=== PATIENT | male | born 1945 | race Caucasian/White ===

== ENCOUNTER 2021-03-31 22:21 | Inpatient (IN) ==
--- NOTE | 2021-03-31 23:13 | XRay Report ---
XR chest 1V portable HISTORY: 75 years-old Male weakness acute weakness COMPARISON: None TECHNIQUE: Portable AP view of the chest FINDINGS: Cardiac silhouette is mildly enlarged. No overt pulmonary edema. Mild subsegmental medial right lung base opacities. No pneumothorax or large pleural effusion. No overt pulmonary edema. Degenerative lalit nges of the shoulders and spine. IMPRESSION: 1. Cardiomegaly without pulmonary edema. 2. Mild medial right lung base opacities suggestive of atelectasis versus pneumonia. ACT 112: Negative or not required by law. The above report was generated using voice recognition software. It may contain grammatical, syntax o r spelling errors. Electronically signed by: Benjy Jensen M.D. 03/31/2021 11:12 PM
[2021-03-31 23:16] LABS: Basophils # (auto) 0.06 K/uL (0-0.2); Basophils % (auto) 0.7 %; Eosinophils # (auto) 0.09 K/uL (0-0.5); Hematocrit (blood only) 50.7 % (42-52); Hemoglobin 17.4 g/dL (14.0-18.0); Immature Granulocytes # (auto) 0.02 K/uL (0.00-0.02); Immature Granulocytes % (auto) 0.2 %; Lymphocytes # (auto) 1.65 K/uL (1.2-3.4); Lymphocytes % (auto) 19.1 %; Mean Corpuscular Hemoglobin 33.3 pg (25-34); Mean Corpuscular Hgb Conc 34.3 g/dL (32-36); Mean Corpuscular Volume 97.1 fL (80-100); Mean Platelet Volume 9.6 fL (7.4-10.4); Monocytes # (auto) 0.91 K/uL (0.11-0.59); Monocytes % (auto) 10.6 %; Neutrophils # (auto) 5.89 K/uL (1.4-6.5); Neutrophils % (auto) 68.4 %; Platelet Count 217 K/uL (130-400); RDW Standard Deviation 45.8 fL (36.4-46.3); Red Blood Count 5.22 M/uL (4.7-6.1); White Blood Count 8.62 K/uL (4.8-10.8)
[2021-03-31 23:24] LABS: Appearance Urine Clear (Clear); Bacteria Urine Automated Negative (Negative); Bilirubin Urine Negative (Negative); Blood Urine 2+ (Negative); Color Urine Dark Yellow; Epithelial Cell Urine Auto >30 /lpf (0-5); Glucose Urine UA Negative (Negative); Ketones Urine Trace (Negative); Leukocyte Esterase Urine Negative (Negative); Nitrite Urine Negative (Negative); Protein Urine Negative (Negative); RBC Urine Automated >30 /hpf (0-4); Specific Gravity Urine 1.024 (1.000-1.030); Urobilinogen Urine Negative (Negative); pH Urine 5.5 (4.5-7.5)
[2021-03-31 23:24] LABS: Albumin Level 4.2 gm/dl (3.4-5.0); BUN Creatinine Ratio 12.6 (10-20); Calcium 9.1 mg/dl (8.5-10.1); Creatinine Clr Calc Pharmacy 43.5 ml/min; Est GFR (African American) 52.6 ml/min; Est GFR (Non-African American) 45.4 ml/min; Potassium 4.2 mmol/L (3.5-5.1)
[2021-03-31 23:35] LABS: Albumin Globulin Ratio 1.3 (0.9-2); Globulin 3.3 gm/dl (2.5-4.0); Thyroid Stimulating Hormone 2.47 uIu/ml (0.300-4.500); Total Protein 7.5 gm/dl (6.4-8.2)
[2021-03-31] MEDS ORDERED: SODIUM CHLORIDE 0.9% 1000ML 1,000 ML IV SCH (23:45)
[2021-03-31 23:57] LABS: Mucus Urine Present (None Prsent)
--- NOTE | 2021-04-01 01:29 | Emergency Department Note ---
History of Present Illness General Chief complaint: Confusion Stated complaint: CONFUSION, HALLUCINATION, CAN'T MOVE Time Seen by Provider: 03/31/21 23:20 Source: patient and family Mode of arrival: ambulatory Limitations: altered mental status History of Present Illness Provider complaint: confusion, hallucinations Onset (ago): day(s) 10 Associated symptoms: + denies other symptoms Treatments prior to arrival: none This is a 75-year-old male who presents from home with at bedside due to concern for confusion and hallucinations. states about a week and a half ago she began noting that he was confused to person and location and began seeing things that were not really there. He didn't recognize her at times also. She states he has never had a reaction like this previously. She denies that he has recently been ill. She states they contacted his doctor as he does have a history of Parkinson's and they thought perhaps it was related to one of his medications so this was discontinued. The medication had been originally prescribed back in October and he had been taking without any difficulty or adverse reactions up until this time. He stopped the medication on Saturday, however symptoms did not improve. They recontacted the doctor who added additional medication for depression. They discussed the ongoing symptoms with the doctor and were told this evening the due to the persistent symptoms that she come to the emergency room for additional evaluation. denies that the patient had otherwise recently had any changes including fevers, decreased appetite, change in weight, change in bathroom habits, or obvious URI symptoms. Patient denies any recent pain. No recent injury. No prior history of dementia or prior CVA. Pt seen during a time of high acuity and national emergency pandemic while wearing PPE. Home Medications Medication Instructions Recorded Confirmed Type aspirin 81 mg tablet,delayed 81 mg PO DAILY 04/01/21 04/01/21 History release carbidopa 25 mg-levodopa 100 mg 1 tab PO TID 04/01/21 04/01/21 History tablet carbidopa ER 50 mg-levodopa 200 mg 1 tab PO HS 04/01/21 04/01/21 History tablet,extended release diphenhydramine 25 1 tab PO HS PRN 04/01/21 04/01/21 History mg-acetaminophen 500 mg tablet (Tylenol PM Extra Strength) garlic 400 mg tablet,delayed 0 mg PO DAILY 04/01/21 04/01/21 History release losartan 50 mg tablet 50 mg PO DAILY 04/01/21 04/01/21 History multivitamin 1 tab PO DAILY 04/01/21 04/01/21 History omega-3 fatty acids 1,000 mg PO TID 04/01/21 04/01/21 History polyethylene glycol 3350 17 17 g PO MOWEFR 04/01/21 04/01/21 History gram/dose oral powder (Miralax) vit A 1,000 unit-C 200 mg-E 60 1 tab PO DAILY 04/01/21 04/01/21 History unit-lutein 2 mg and minerals tablet (Vision Formula (with lutein)) Allergies Allergy/AdvReac Type Severity Reaction Status Date / Time bee venom protein (honey bee) Allergy Unknown Verified 04/01/21 01:00 lisinopril AdvReac Cough Verified 04/01/21 01:00 Past Med/Surg History Medical History (Updated 04/02/21 @ 07:37 by Jaqueline Montes DO) Hypertension Parkinsons disease Social History Smoking Status: Never smoker Hx Alcohol Use: Yes Alcohol type: beer Hx Substance Use: No Preferred Language: Albanian Communication Ability: Effective Math Instructor Required: No Beliefs That Will Affect Care: None Current Living Situation: Spouse Other Information That Helps Us Care for You: No Feels Safe at Home: Yes Safety Concerns: Feels Safe At This Time Assistive Devices: Cane and Glasses Review of Systems A total of 10 systems reviewed and were otherwise negative All systems reviewed & are unremarkable except as noted in HPI & below Physical Exam Vital Signs Vital Signs - 24 hr 04/01/21 01:00 04/01/21 01:30 04/01/21 02:00 Pulse Rate 88 91 H 87 Pulse Rate from SpO2 Sensor Respiratory Rate 16 17 15 Blood Pressure 124/82 136/59 L 120/78 Blood Pressure Mean 96 84 92 Pulse Oximetry 96 96 96 04/01/21 02:30 04/01/21 03:00 04/01/21 03:30 Pulse Rate 89 87 86 Pulse Rate from SpO2 Sensor 91 H Respiratory Rate 16 13 15 Blood Pressure 129/83 128/85 131/86 Blood Pressure Mean 98 99 101 Pulse Oximetry 96 96 98 04/01/21 04:01 04/01/21 04:30 Pulse Rate 92 H 92 H Pulse Rate from SpO2 Sensor 91 H Respiratory Rate 16 21 Blood Pressure 158/99 H 148/89 H Blood Pressure Mean 118 108 Pulse Oximetry 99 96 GENERAL: alert, well appearing, well nourished, no distress, non-toxic EYE EXAM: normal conjunctiva, PERRL and EOM's grossly intact OROPHARYNX: no exudate, no erythema, lips, buccal mucosa, and tongue normal and mucous membranes are moist NECK: supple, no nuchal rigidity, no adenopathy, non-tender LUNGS: Clear to auscultation. Normal chest wall mechanics, no w/r/r HEART: no murmurs, S1 normal and S2 normal ABDOMEN: abdomen soft, non-tender, normo-active bowel sounds, no masses, no rebound or guarding. : Patient with mild redness noted along bilateral inguinal creases and extending into the lateral aspect of the scrotal skin. states he has had this previously and it seemed to get worse again. They are applying a antifungal cream. Patient denies pain, scrotal swelling, or testicular tenderness. Patient denies any difficulty urinating. Patient is circumcised. No crepitus. No evidence of Parker's. No inguinal lymphadenopathy. BACK: Back is symmetrical on inspection and there is no deformity, no midline tenderness, no CVA tenderness. SKIN: no rashes and no bruising UPPER EXTREMITIES: upper extremities are grossly normal. FROM, nml pulses b/l. LOWER EXTREMITIES: No pitting edema. FROM, nml pulses b/l. NEURO EXAM: Normal sensorium, cranial nerves II-XII grossly intact, normal speech, no gross weakness of arms, no gross weakness of legs. Mild resting tremor noted. Gross sensation intact. Course Course 0116: Updated patient and at bedside. Patient refused to stay. would like him to but is not willing to force him to stay despite her concern for his confusion and hallucinations. We did discuss hematuria. No prior history of same. No history of kidney stones or TEJINDER. 0411: Patient does not change his mind and is in agreement with plan for inpatient evaluation. Administered Medications Aspirin (Aspirin 81 Mg Ectab) 81 mg PO DAILY [facility] Stop: 05/01/21 08:59 Last Admin: 04/01/21 08:52 Dose: 81 mg Documented by: [id number] Carbidopa/Levodopa (Carbidopa/Levodopa 50/200mg Ext Rel Tab) 1 tab PO HS [facility] Stop: 05/01/21 20:59 Last Admin: 04/01/21 21:42 Dose: Not Given Documented by: [id number] Carbidopa/Levodopa (Carbidopa/Levodopa 25/100mg Tab) 1 tab PO TID JM Stop: 05/01/21 08:59 Last Admin: 04/01/21 21:42 Dose: Not Given Documented by: [id number] Admin: 04/01/21 16:09 Dose: Not Given Documented by: [id number] Admin: 04/01/21 08:52 Dose: 1 tab Documented by: [id number] Heparin Sodium (Porcine) (Heparin Sod 5,000 Unit/0.5 Ml Vial) 5,000 units SQ Q8 JM Stop: 05/01/21 06:42 Last Admin: 04/02/21 06:08 Dose: 5,000 units Documented by: [id number] Admin: 04/01/21 21:13 Dose: 5,000 units Documented by: [id number] Admin: 04/01/21 16:09 Dose: 5,000 units Documented by: [id number] Admin: 04/01/21 08:52 Dose: 5,000 units Documented by: [id number] Sodium Chloride (1/2 Nss) 1,000 mls @ 100 mls/hr IV .Q10H JM Stop: 05/01/21 07:59 Last Admin: 04/02/21 06:13 Dose: 100 mls/hr Documented by: [id number] Infusion: 04/02/21 06:13 Dose: 100 mls/hr Documented by: [id number] Admin: 04/01/21 21:10 Dose: 100 mls/hr Documented by: [id number] Infusion: 04/01/21 20:19 Dose: 100 mls/hr Documented by: [id number] Infusion: 04/01/21 12:30 Dose: 100 mls/hr Documented by: [id number] Admin: 04/01/21 08:51 Dose: 60 mls/hr Documented by: [id number] Valproic Acid 250 mg/ Dextrose 52.5 mls @ 55 mls/hr IV Q6H PRN PRN Reason: Agitation Stop: 05/01/21 16:59 Last Infusion: 04/01/21 18:27 Dose: 0 mls/hr Documented by: [id number] Admin: 04/01/21 17:18 Dose: 55 mls/hr Documented by: [id number] Multivitamins (Multivitamin Tab) 1 tab PO DAILY JM Stop: 05/01/21 08:59 Last Admin: 04/01/21 08:52 Dose: 1 tab Documented by: [id number] Quetiapine Fumarate (Quetiapine Fumarate 25 Mg Tablet) 12.5 mg PO Q12H JM Stop: 05/01/21 16:59 Last Admin: 04/02/21 07:29 Dose: Not Given Documented by: [id number] Discontinued Medications Sodium Chloride (Nss 1000ml) 1,000 mls @ 125 mls/hr IV .Q8H JM Stop: 04/30/21 23:44 Last Infusion: 04/01/21 06:46 Dose: 0 mls/hr Documented by: [id number] Admin: 04/01/21 00:03 Dose: 125 mls/hr Documented by: [id number] Lactated Ringer's (Lr) 1,000 mls @ 60 mls/hr IV .[id number] ONE Stop: 04/01/21 23:22 Last Admin: 04/01/21 08:45 Dose: Not Given Documented by: [id number] Lorazepam (Ativan) 1 mg in 2 mls @ 2 mls/min IV NOW STA Stop: 04/01/21 12:14 Last Admin: 04/01/21 12:25 Dose: 2 mls/min Documented by: [id number] Olanzapine (Olanzapine 10 Mg/2.1 Ml Sdv) 2.5 mg IM NOW STA Stop: 04/01/21 17:54 Last Admin: 04/01/21 18:26 Dose: 2.5 mg Documented by: [id number] Medical Decision Making Differential Diagnosis Differential diagnoses includes but is not limited to toxic, metabolic, infectious, traumatic, cardiac, neurologic, hematologic, psychiatric and inflammatory etiologies. Medical Records Attestation: I reviewed the patient's medical records. Home Medications Current Medication List: was personally reviewed by me Laboratory Data Attestation: I reviewed the patient's lab results. Result diagrams: 04/01/21 06:55 04/01/21 06:55 Lab Results 03/31/21 03/31/21 03/31/21 Range/Units 22:50 22:50 23:00 WBC 8.62 (4.8-10.8) K/uL RBC 5.22 (4.7-6.1) M/uL Hgb 17.4 (14.0-18.0) g/dL Hct 50.7 (42-52) % MCV 97.1 (80-100) fL MCH 33.3 (25-34) pg MCHC 34.3 (32-36) g/dL RDW Std Deviation 45.8 (36.4-46.3) fL RDW Coeff of Celena 13.0 (11.5-14.5) % Plt Count 217 (130-400) K/uL MPV 9.6 (7.4-10.4) fL Immature Gran % (Auto) 0.2 % Neut % (Auto) 68.4 % Lymph % (Auto) 19.1 % [place] % (Auto) 10.6 % Eos % (Auto) 1.0 % Baso % (Auto) 0.7 % Neut # (Auto) 5.89 (1.4-6.5) K/uL Lymph # (Auto) 1.65 (1.2-3.4) K/uL [place] # (Auto) 0.91 H (0.11-0.59) K/uL Eos # (Auto) 0.09 (0-0.5) K/uL Baso # (Auto) 0.06 (0-0.2) K/uL Immature Gran # (Auto) 0.02 (0.00-0.02) K/uL Sodium 140 (136-145) mmol/L Potassium 4.2 (3.5-5.1) mmol/L Chloride 107 (98-107) mmol/L Carbon Dioxide 30 (21-32) mmol/L Anion Gap 4.0 (3-11) BUN 19 H (7-18) mg/dl Creatinine 1.47 H (0.6-1.4) mg/dl Est Cr Clr Drug Dosing 43.5 ml/min Est GFR ( Amer) 52.6 ml/min Est GFR (Non-Af Amer) 45.4 ml/min BUN/Creatinine Ratio 12.6 (10-20) Glucose 105 H (70-99) mg/dl Calcium 9.1 (8.5-10.1) mg/dl Magnesium 2.3 (1.8-2.4) mg/dl Total Bilirubin 1.0 (0.2-1) mg/dl AST 18 (15-37) U/L ALT 15 (12-78) U/L Alkaline Phosphatase 70 (45-117) U/L Total Protein 7.5 (6.4-8.2) gm/dl Albumin 4.2 (3.4-5.0) gm/dl Globulin 3.3 (2.5-4.0) gm/dl Albumin/Globulin Ratio 1.3 (0.9-2) TSH 2.470 (0.300-4.500) uIu/ml Urine Color Dark Yellow Urine Appearance Clear (Clear) Urine pH 5.5 (4.5-7.5) Ur Specific [place] 1.024 (1.000-1.030) Urine Protein Negative (Negative) Urine Glucose (UA) Negative (Negative) Urine Ketones Trace H (Negative) Urine Blood 2+ H (Negative) Urine Nitrite Negative (Negative) Urine Bilirubin Negative (Negative) Urine Urobilinogen Negative (Negative) Ur Leukocyte Esterase Negative (Negative) Urine WBC (Auto) 1-5 (0-5) /hpf Urine RBC (Auto) >30 H (0-4) /hpf U Hyaline Cast (Auto) 5-10 H (0-5) /lpf U Epithel Cells (Auto) >30 H (0-5) /lpf Urine Bacteria (Auto) Negative (Negative) Ur Renal Epithelial Cell Not Reportable Urine Mucus Present A (None Prsent) COVID-19 Eval Order SARS-CoV-2 (PCR) (Negative) 04/01/21 04/01/21 Range/Units 03:15 03:15 WBC (4.8-10.8) K/uL RBC (4.7-6.1) M/uL Hgb (14.0-18.0) g/dL Hct (42-52) % MCV (80-100) fL MCH (25-34) pg MCHC (32-36) g/dL RDW Std Deviation (36.4-46.3) fL RDW Coeff of [place] (11.5-14.5) % Plt Count (130-400) K/uL MPV (7.4-10.4) fL Immature Gran % (Auto) % Neut % (Auto) % Lymph % (Auto) % [place] % (Auto) % Eos % (Auto) % Baso % (Auto) % Neut # (Auto) (1.4-6.5) K/uL Lymph # (Auto) (1.2-3.4) K/uL [place] # (Auto) (0.11-0.59) K/uL Eos # (Auto) (0-0.5) K/uL Baso # (Auto) (0-0.2) K/uL Immature Gran # (Auto) (0.00-0.02) K/uL Sodium (136-145) mmol/L Potassium (3.5-5.1) mmol/L Chloride (98-107) mmol/L Carbon Dioxide (21-32) mmol/L Anion Gap (3-11) BUN (7-18) mg/dl Creatinine (0.6-1.4) mg/dl Est Cr Clr Drug Dosing ml/min Est GFR ( Amer) ml/min Est GFR (Non-Af Amer) ml/min BUN/Creatinine Ratio (10-20) Glucose (70-99) mg/dl Calcium (8.5-10.1) mg/dl Magnesium (1.8-2.4) mg/dl Total Bilirubin (0.2-1) mg/dl AST (15-37) U/L ALT (12-78) U/L Alkaline Phosphatase (45-117) U/L Total Protein (6.4-8.2) gm/dl Albumin (3.4-5.0) gm/dl Globulin (2.5-4.0) gm/dl Albumin/Globulin Ratio (0.9-2) TSH (0.300-4.500) uIu/ml Urine Color Urine Appearance (Clear) Urine pH (4.5-7.5) Ur Specific [place] (1.000-1.030) Urine Protein (Negative) Urine Glucose (UA) (Negative) Urine Ketones (Negative) Urine Blood (Negative) Urine Nitrite (Negative) Urine Bilirubin (Negative) Urine Urobilinogen (Negative) Ur Leukocyte Esterase (Negative) Urine WBC (Auto) (0-5) /hpf Urine RBC (Auto) (0-4) /hpf U Hyaline Cast (Auto) (0-5) /lpf U Epithel Cells (Auto) (0-5) /lpf Urine Bacteria (Auto) (Negative) Ur Renal Epithelial Cell Urine Mucus (None Prsent) COVID-19 Eval Order Covid19 at [facility] SARS-CoV-2 (PCR) NEGATIVE (Negative) Imaging Data Radiologist's Impression: Chest X-Ray 03/31/21 23:01 XR chest 1V portable HISTORY: 75 years-old Male weakness acute weakness COMPARISON: None TECHNIQUE: Portable AP view of the chest FINDINGS: Cardiac silhouette is mildly enlarged. No overt pulmonary edema. Mild subsegmental medial right lung base opacities. No pneumothorax or large pleural effusion. No overt pulmonary edema. Degenerative changes of the shoulders and spine. IMPRESSION: 1. Cardiomegaly without pulmonary edema. 2. Mild medial right lung base opacities suggestive of atelectasis versus pneumonia. ACT 112: Negative or not required by law. The above report was generated using voice recognition software. It may contain grammatical, syntax or spelling errors. Electronically signed by: Benjy Jensen M.D. 03/31/2021 11:[address] 03/31/21 23:48 CT SCAN OF THE BRAIN WITHOUT IV CONTRAST CLINICAL HISTORY: Change in mental status. Hallucinations. COMPARISON STUDY: No priors. TECHNIQUE: Unenhanced axial CT scan of the brain is performed from the vertex to the skull base. A dose lowering technique was utilized adhering to the principles of ALARA. CT DOSE: 614.27 mGy.cm FINDINGS: Brain parenchyma: There are age-related involutional changes noting moderate patchy subcortical and periventricular microangiopathic change. There is no hemorrhage, mass effect, or evidence of acute territorial ischemia by CT criteria. Quarles-white matter differentiation is preserved. No extra-axial fluid collection is seen. Ventricles, sulci, cisterns: Prominent secondary to involutional change. Intracranial vasculature: There is atherosclerotic calcification of the cavernous carotid and vertebral arteries. Calvarium: Unremarkable. Sinuses and mastoids: The visualized paranasal sinuses are clear. The mastoid air cells are well pneumatized. Orbits: The bony orbits are grossly intact. IMPRESSION: There is no hemorrhage, mass effect, or evidence of acute territorial ischemia by CT criteria. ACT 112: Negative or not required by law. Electronically signed by: Israel Alford M.D. 04/01/2021 7:[address] head: No skull fracture, acute bleed, infarct, or acute intracranial normality. Moderate, chronic, nonspecific white matter disease and atrophy. Radiologist: Abby Grover MD CT abdomen and pelvis without contrast: The lung bases are clear. The heart is large. Calcification of the liver. Gallbladder intact. Pancreas, spleen and adrenals are intact. Right kidney intact. Left kidney parapelvic cyst. Bladder unremarkable. Ureters unremarka ble. Bowel loops intact. Normal appendix. No adenopathy, free air or free fluid. Minimal atherosclerosis. Small hiatal hernia. DJD. Impression: No acute findings. Radiologist: Joe Vick MD MDM Narrative This is a 75-year-old male who presents with due to concern for confusion and hallucinations. No prior similar events. No history of dementia. Patient does have Parkinson's and it was initially thought this was related to medi cation adverse reaction. After some attempts over the last week and a half of changing medications to resolve his symptoms, they became concerned and came to the emergency room. No evidence of acute infectious etiology or electrolyte abnormality. Mild dehydration noted. Patient was noted to have hematuria without obvious urinary tract infection. CT of the head did not reveal any acute pathology, CT of the abdomen and pelvis after finding the hematuria and did not reveal any acute renal pathology either. Patient initially resistant to additional inpatient evaluation. Upon recheck after second CT, patient had now verbalized that he is in agreement with the plan. Case was discussed with the hospitalist. I do not suspect meningitis/encephalitis and I do not feel patient requires a lumbar puncture at this time. I did discuss with patient and family likely need for neurology consultation as the hospitalist continue to evaluate his symptoms. An order was placed for continuous cardiac monitoring. The monitor shows a rate of _82__ with _normal sinus_ rhythm. Impression & Plan Confusion, Hallucinations, Parkinsons disease, Tinea cruris Discharge Plan Visit Data Chief Complaint: Confusion Stated Complaint: CONFUSION, HALLUCINATION, CAN'T MOVE ED Provider: Jaqueline Montes Discharge Problem: Confusion, Hallucinations, Parkinsons disease, Tinea cruris Patient Disposition: Admitted As Inpatient Discharge Instructions Interventions: ED Discharge Assessment Last Done: 04/01/21 06:21
--- NOTE | 2021-04-01 03:51 | History & Physical Report ---
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 Ms. Natividad zurita, contact #[phone]. Text document was generated using [employer] voice recognition software. It may contain grammatical or spelling errors. Kindly contact undersigned for clarification of any documentation item in question. History of Present Illness Chief Complaint: I did not want to go to the hospital as per patient Confusion, hallucinations as per Primary Care Provider: Gloria Lopez MD History obtained from patient, family, and records. Patient is a reliable historian at time of encounter. Medical history significant for Parkinson's disease, hypertension, hyperlipidemia. Patient seen on follow-up appointment for Parkinson's disease at [facility] last month. Patient's immediate release Sinemet increased to 5 times a day. Patient to continue Amantadine prescription as well. 2 weeks ago, patient noted by to have visual hallucinations. People coming into their home. Patient mistaking his for some other lady she looks like. Occasional auditory hallucinations of hearing music as per . Patient neurologist recommended stopping Amantadine. Persistent hallucinations despite cessation of Amantadine Rx. Immediate release Sinemet 5 times daily frequency decreased by covering neurolo gist provider to 3 times daily 3 days ago. Seroquel nightly initiated. Persistent hallucinations associated with more confusion and patient more having trouble moving as per . Patient told to stop Seroquel and to bring patient to the emergency room if symptoms still unmanageable. Patient denies chest pain, S OB, headache, abdominal pain, dysuria symptoms. Appetite okay as per . Patient noted improved mentation after IV hydration administered at the ER. 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 Allergies Allergy/AdvReac Type Severity Reaction Status Date / Time bee venom protein (honey bee) Allergy Unknown Verified 04/01/21 01:00 lisinopril AdvReac Cough Verified 04/01/21 01:00 Home Medications Medication Instructions Recorded Confirmed Type aspirin 81 mg tablet,delayed 81 mg PO DAILY 04/01/21 04/01/21 History release carbidopa 25 mg-levodopa 100 mg 1 tab PO TID 04/01/21 04/01/21 History tablet carbidopa ER 50 mg-levodopa 200 mg 1 tab PO HS 04/01/21 04/01/21 History tablet,extended release diphenhydramine 25 1 tab PO HS PRN 04/01/21 04/01/21 History mg-acetaminophen 500 mg tablet (Tylenol PM Extra Strength) garlic 400 mg tablet,delayed 0 mg PO DAILY 04/01/21 04/01/21 History release losartan 50 mg tablet 50 mg PO DAILY 04/01/21 04/01/21 History multivitamin 1 tab PO DAILY 04/01/21 04/01/21 History omega-3 fatty acids 1,000 mg PO TID 04/01/21 04/01/21 History polyethylene glycol 3350 17 17 g PO MOWEFR 04/01/21 04/01/21 History gram/dose oral powder (Miralax) vit A 1,000 unit-C 200 mg-E 60 1 tab PO DAILY 04/01/21 04/01/21 History unit-lutein 2 mg and minerals tablet (Vision Formula (with lutein)) Past Med/Surg History Medical History (Updated 04/01/21 @ 09:17 by Leighton Garcia MD) Hypertension Parkinsons disease Social History Smoking Status: Never smoker Hx Alcohol Use: Yes Alcohol type: beer Hx Substance Use: No Preferred Language: Albanian Communication Ability: Effective Mailing Machine Assistant Required: No Beliefs That Will Affect Care: None Current Living Situation: Spouse Other Information That Helps Us Care for You: No Feels Safe at Home: Yes Safety Concerns: Feels Safe At This Time Assistive Devices: Cane and Glasses Review of Systems Review of Systems: As per HPI, all 10 systems reviewed, all other ROS negative Physical Exam Physical Exam: GENERAL: Comfortable, chronic dysarthria, no respiratory distress SKIN: Normal color, warm HEENT: [place] palpebral conjunctivae, masklike facies, no ptosis, dry buccal mucosa NECK : Supple, no tenderness CHEST : CTA, no tenderness HEART : RRR, no obvious murmurs ABDOMEN: Some distention, nontender EXTREMITIES : No LE swelling/tenderness, no other conspicuous deformities noted NEUROLOGIC : Coherent, no facial asymmetry, mild dysarthria (chronic as per ), resting tremors, gait and stance not assessed Results & Data Results [facility] Vital Signs (Past 12 Hours) Vital Signs Temp Pulse Resp BP Pulse Ox 04/01/21 03:00 87 13 128/85 96 04/01/21 02:30 89 16 129/83 96 04/01/21 02:00 87 15 120/78 96 04/01/21 01:30 91 H 17 136/59 L 96 04/01/21 01:00 88 16 124/82 96 04/01/21 00:30 90 16 121/82 97 04/01/21 00:00 96 H 18 145/75 H 98 03/31/21 23:30 93 H 18 140/110 H 97 03/31/21 23:05 97 03/31/21 23:00 93 H 13 151/97 H 97 03/31/21 22:27 36.5 C 86 20 154/83 H 99 Laboratory Results Laboratory Results WBC 8.62 K/uL (4.8-10.8) 03/31/21 22:50 RBC 5.22 M/uL (4.7-6.1) 03/31/21 22:50 Hgb 17.4 g/dL (14.0-18.0) 03/31/21 22:50 Hct 50.7 % (42-52) 03/31/21 22:50 MCV 97.1 fL (80-100) 03/31/21 22:50 MCH 33.3 pg (25-34) 03/31/21 22:50 MCHC 34.3 g/dL (32-36) 03/31/21 22:50 RDW Std Deviation 45.8 fL (36.4-46.3) 03/31/21 22:50 RDW Coeff of Celena 13.0 % (11.5-14.5) 03/31/21 22:50 Plt Count 217 K/uL (130-400) 03/31/21 22:50 MPV 9.6 fL (7.4-10.4) 03/31/21 22:50 Immature Gran % (Auto) 0.2 % 03/31/21 22:50 Neut % (Auto) 68.4 % 03/31/21 22:50 Lymph % (Auto) 19.1 % 03/31/21 22:50 [place] % (Auto) 10.6 % 03/31/21 22:50 Eos % (Auto) 1.0 % 03/31/21 22:50 Baso % (Auto) 0.7 % 03/31/21 22:50 Neut # (Auto) 5.89 K/uL (1.4-6.5) 03/31/21 22:50 Lymph # (Auto) 1.65 K/uL (1.2-3.4) 03/31/21 22:50 [place] # (Auto) 0.91 K/uL (0.11-0.59) H 03/31/21 22:50 Eos # (Auto) 0.09 K/uL (0-0.5) 03/31/21 22:50 Baso # (Auto) 0.06 K/uL (0-0.2) 03/31/21 22:50 Immature Gran # (Auto) 0.02 K/uL (0.00-0.02) 03/31/21 22:50 Sodium 140 mmol/L (136-145) 03/31/21 22:50 Potassium 4.2 mmol/L (3.5-5.1) 03/31/21 22:50 Chloride 107 mmol/L (98-107) 03/31/21 22:50 Carbon Dioxide 30 mmol/L (21-32) 03/31/21 22:50 Anion Gap 4.0 (3-11) 03/31/21 22:50 BUN 19 mg/dl (7-18) H 03/31/21 22:50 Creatinine 1.47 mg/dl (0.6-1.4) H 03/31/21 22:50 Est Cr Clr Drug Dosing 43.5 ml/min 03/31/21 22:50 Est GFR ( Amer) 52.6 ml/min 03/31/21 22:50 Est GFR (Non-Af Amer) 45.4 ml/min 03/31/21 22:50 BUN/Creatinine Ratio 12.6 (10-20) 03/31/21 22:50 Glucose 105 mg/dl (70-99) H 03/31/21 22:50 Calcium 9.1 mg/dl (8.5-10.1) 03/31/21 22:50 Total Bilirubin 1.0 mg/dl (0.2-1) 03/31/21 22:50 AST 18 U/L (15-37) 03/31/21 22:50 ALT 15 U/L (12-78) 03/31/21 22:50 Alkaline Phosphatase 70 U/L (45-117) 03/31/21 22:50 Total Protein 7.5 gm/dl (6.4-8.2) 03/31/21 22:50 Albumin 4.2 gm/dl (3.4-5.0) 03/31/21 22:50 Globulin 3.3 gm/dl (2.5-4.0) 03/31/21 22:50 Albumin/Globulin Ratio 1.3 (0.9-2) 03/31/21 22:50 TSH 2.470 uIu/ml (0.300-4.500) 03/31/21 22:50 Urine Color Dark Yellow 03/31/21 23:00 Urine Appearance Clear (Clear) 03/31/21 23:00 Urine pH 5.5 (4.5-7.5) 03/31/21 23:00 Ur Specific [place] 1.024 (1.000-1.030) 03/31/21 23:00 Urine Protein Negative (Negative) 03/31/21 23:00 Urine Glucose (UA) Negative (Negative) 03/31/21 23:00 Urine Ketones Trace (Negative) H 03/31/21 23:00 Urine Blood 2+ (Negative) H 03/31/21 23:00 Urine Nitrite Negative (Negative) 03/31/21 23:00 Urine Bilirubin Negative (Negative) 03/31/21 23:00 Urine Urobilinogen Negative (Negative) 03/31/21 23:00 Ur Leukocyte Esterase Negative (Negative) 03/31/21 23:00 Urine WBC (Auto) 1-5 /hpf (0-5) 03/31/21 23:00 Urine RBC (Auto) >30 /hpf (0-4) H 03/31/21 23:00 U Hyaline Cast (Auto) 5-10 /lpf (0-5) H 03/31/21 23:00 U Epithel Cells (Auto) >30 /lpf (0-5) H 03/31/21 23:00 Urine Bacteria (Auto) Negative (Negative) 03/31/21 23:00 Ur Renal Epithelial Cell Not Reportable 03/31/21 23:00 Urine Mucus Present (None Prsent) A 03/31/21 23:00 COVID-19 Eval Order Covid19 at [facility] 04/01/21 03:15 Impressions Chest X-Ray 03/31/21 23:01 XR chest 1V portable HISTORY: 75 years-old Male weakness acute weakness COMPARISON: None TECHNIQUE: Portable AP view of the chest FINDINGS: Cardiac silhouette is mildly enlarged. No overt pulmonary edema. Mild subsegmental medial right lung base opacities. No pneumothorax or large pleural effusion. No overt pulmonary edema. Degenerative changes of the shoulders and spine. IMPRESSION: 1. Cardiomegaly without pulmonary edema. 2. Mild medial right lung base opacities suggestive of atelectasis versus pneumonia. ACT 112: Negative or not required by law. The above report was generated using voice recognition software. It may contain grammatical, syntax or spelling errors. Electronically signed by: Benjy Jensen M.D. 03/31/2021 11:[address] head initial read: No skull fracture, acute bleed, infarct or acute intracranial abnormality. Moderate chronic nonspecific white matter disease or atrophy. CT abdomen pelvis initial read: Clear lung bases. Cardiomegaly. Liver calcification. Gallbladder intact. Pancreas spleen and adrenals intact. Right kidney intact. Left kidney parapelvic cyst. Bladder unremarkable. Ureters unremarkable. Bowel loops in tact. Normal appendix. No adenopathy. No free air. Minimal atherosclerosis. Small hiatal hernia. DJD. No acute findings. EKG as per my interpretation : Rate 95, NSR, normal axis, T wave abnormalities lateral leads, PVCs
[2021-04-01 05:07] LABS: Magnesium 2.3 mg/dl (1.8-2.4)
[2021-04-01] MEDS ORDERED: ACETAMINOPHEN 325 MG TAB PO PRN ×2 (06:43)
[2021-04-01] MEDS ORDERED: PROMETHAZINE HCL 6.25 MG in SODIUM CHLORIDE 0.9% 50 ML IV PRN (06:43)
[2021-04-01] MEDS ORDERED: LACTATED RINGER'S 1,000 ML IV ONE (06:43)
[2021-04-01 07:13] LABS: Basophils # (auto) 0.05 K/uL (0-0.2); Basophils % (auto) 0.6 %; Eosinophils # (auto) 0.06 K/uL (0-0.5); Eosinophils % (auto) 0.7 %; Hematocrit (blood only) 50.5 % (42-52); Hemoglobin 17.5 g/dL (14.0-18.0); Immature Granulocytes # (auto) 0.03 K/uL (0.00-0.02); Immature Granulocytes % (auto) 0.4 %; Lymphocytes # (auto) 1.63 K/uL (1.2-3.4); Lymphocytes % (auto) 19.5 %; Mean Corpuscular Hgb Conc 34.7 g/dL (32-36); Mean Corpuscular Volume 95.3 fL (80-100); Mean Platelet Volume 9.4 fL (7.4-10.4); Monocytes % (auto) 9.6 %; Neutrophils # (auto) 5.78 K/uL (1.4-6.5); Neutrophils % (auto) 69.2 %; Platelet Count 187 K/uL (130-400); RDW Coefficient of Variation 12.7 % (11.5-14.5); RDW Standard Deviation 44.6 fL (36.4-46.3); White Blood Count 8.35 K/uL (4.8-10.8)
--- NOTE | 2021-04-01 07:47 | Electrocardiogram Report ---
Test Reason : Blood Pressure : / mmHG Vent. Rate : 094 BPM Atrial Rate : 094 BPM P-R Int : 140 ms QRS Dur : 128 ms QT Int : 378 ms P-R-T Axes : 078 000 098 degrees QTc Int : 472 ms Sinus rhythm with frequent Premature ventricular complexes Left atrial enlargement Non-specific intra-ventricular conduction block Abnormal ECG No previous ECGs available Confirmed by Fred Long ([id number]) on 04/01/2021 7:47:33 AM Referred By: REFERRED SELF Confirmed By:Fred Long
[2021-04-01 07:50] LABS: BUN Creatinine Ratio 12.7 (10-20); Calcium 8.8 mg/dl (8.5-10.1); Creatinine Clr Calc Pharmacy 56.5 ml/min; Est GFR (African American) 72.3 ml/min; Est GFR (Non-African American) 62.4 ml/min; Potassium 4.2 mmol/L (3.5-5.1)
--- NOTE | 2021-04-01 07:56 | CT Scan Report ---
CT SCAN OF THE BRAIN WITHOUT IV CONTRAST CLINICAL HISTORY: Change in mental status. Hallucinations. COMPARISON STUDY: No priors. TECHNIQUE: Unenhanced axial CT scan of the brain is performed from the vertex to the skull base. A do se lowering technique was utilized adhering to the principles of ALARA. CT DOSE: 614.27 mGy.cm FINDINGS: Brain parenchyma: There are age-related involutional changes noting moderate patchy subcortical and periventricular microangiopathic change. There is no hemorrhage, mass effect, or evidence of acute te rritorial ischemia by CT criteria. [place]ar[place]-white matter differentiation is preserved. No extra-axial flu id collection is seen. Ventricles, sulci, cisterns: Prominent secondary to involutional change. Intracranial vasculature: There is atherosclerotic calcification of the cavernous carotid and vertebr al arteries. Calvarium: Unremarkable. Sinuses and mastoids: The visualized paranasal sinuses are clear. The mastoid air cells are well pneu matized. Orbits: The bony orbits are grossly intact. IMPRESSION: There is no hemorrhage, mass effect, or evidence of acute territorial ischemia by CT luís cruz. ACT 112: Negative or not required by law. Electronically signed by: Israel Alford M.D. 04/01/2021 7:54 AM
--- NOTE | 2021-04-01 08:39 | CT Scan Report ---
CT SCAN OF THE ABDOMEN AND PELVIS WITHOUT IV CONTRAST CLINICAL HISTORY: Hematuria. COMPARISON STUDY: No priors. TECHNIQUE: CT scan of the abdomen and pelvis is performed from the lung bases to the proximal femora. Images are reviewed in the axial, sagittal, and coronal planes. IV contrast was not administered for this examination. A dose lowering technique was utilized adhering to the principles of ALARA. The ex amination is compromised by motion artifact. CT DOSE: 322.55 mGy.cm FINDINGS: Lung bases: The heart is enlarged and without pericardial effusion. The coronary arteries are densely calcified. There is a 5 mm pulmonary nodule in the right middle lobe. The lung bases are otherwise c lear noting dependent atelectasis. Liver: The unenhanced liver is normal in size, contour, and attenuation. There is no intrahepatic shahla iary ductal dilatation. A calcified granuloma is noted in the posterior right lobe. Gallbladder: Unremarkable. Spleen: Normal in size and attenuation. Pancreas: Unremarkable. Adrenal glands: Unremarkable. Kidneys: The unenhanced kidneys are normal in size and without hydronephrosis. There are no renal chi culi identified. There is no evidence of contour deforming renal mass lesion. The renal sinus cyst is noted on the left. Abdominal vasculature: The abdominal aorta is normal in course and caliber noting scattered foci of a therosclerotic calcification. Bowel: There is moderate colonic fecal retention. No bowel obstruction is seen. The appendix is well -visualized and normal. Peritoneum: There is no intraperitoneal free air or abdominal ascites. Lymphadenopathy: None. Pelvic viscera: The prostate gland is mildly enlarged and heterogeneous. The bladder and seminal vesi cles are normal as imaged. Skeletal structures: The skeletal structures are osteopenic. There is mild to moderate lumbosacral sp ondylosis. No lytic or blastic lesions are seen. IMPRESSION: 1. There are no acute infectious or inflammatory findings in the abdomen or pelvis. 2. Cardiomegaly. 3. There is a 5 mm right middle lobe pulmonary nodule. Nonemergent chest CT follow-up is recommended in 3 months time for dedicated assessment of the thorax. 4. Additional findings as above. ACT 112: Negative or not required by law. Electronically signed by: Israel Alford M.D. 04/01/2021 8:38 AM
[2021-04-01] MEDS: SODIUM CHLORIDE 0.45 % 1,000 ML IV SCH ×2 (08:51→21:10)
[2021-04-01] MEDS: ASPIRIN 81 MG ECTAB PO SCH (08:52)
[2021-04-01] MEDS: MULTIVITAMIN TAB PO SCH (08:52)
[2021-04-01] MEDS: CARBIDOPA/LEVODOPA 25/100MG TAB PO SCH ×3 (08:52→21:42)
[2021-04-01] MEDS: HEPARIN SOD 5,000 UNIT/0.5 ML VIAL SQ SCH ×3 (08:52→21:13)
[2021-04-01] MEDS ORDERED: LORazepam 1 MG/2 ML VIAL IV STA (12:13)
--- NOTE | 2021-04-01 13:22 | Consultation Report ---
NEUROLOGY CONSULTATION NOTE DATE OF SERVICE: 04/01/2021 CHIEF COMPLAINT: Altered mental status/hallucinations. HISTORY OF PRESENT ILLNESS: The patient is a 75-year-old male known to [facility] for Parkinson's, on Sinemet immediate release 5 times daily as well as extended release Sinemet at night, admitted for altered mental status/increased confusion and hallucinations. The patient recently had a change in his medications where he was placed on amantadine. It was believed that amantadine may have been contributing to increased hallucinations; therefore, this medication was stopped promptly. The patient continued to suffer from increased confusion as well as visual hallucinations. He was not recognizing his . I spoke with the a few days ago and encouraged them to reduce the dose of Sinemet by 2 tablets. They did reduce the dose of Sinemet, although this made his Parkinson's worse and had no improvement in mentation. I also provided them with a script for Seroquel 25 mg nightly. Given the progressive or continued confusion, the spouse brought the to the Emergency Department yesterday. He was admitted for altered mental status associated with hallucinations. He did receive IV fluids in the ER as he was noted to have acute renal failure secondary to probable dehydration. Mentation did improve. Neurology was consulted on admission. ALLERGIES: BEE VENOM, LISINOPRIL. PAST MEDICAL HISTORY: Hypertension, Parkinson's disease. HOME MEDICATIONS: Aspirin, carbidopa/levodopa 25-100 five times daily, carbidopa-levadopa extended release 50-200 one tab nightly, garlic, losartan, multivitamin, [place]-3 fatty acids, vitamin A. PAST SURGICAL HISTORY: Reviewed. The patient has not had any recent surgeries. FAMILY HISTORY: Reviewed, no pertinent family history. SOCIAL HISTORY: He is a nonsmoker. He drinks beer occasionally. He lives with his spouse. He uses a cane to walk. He is retired. REVIEW OF SYSTEMS: The patient denies chest pain, shortness of breath, headache, abdominal pain, dysuria. All other review of systems was negative except as noted above in the HPI. PHYSICAL EXAMINATION: VITAL SIGNS: Blood pressure 157/85, pulse is 88, respiratory rate 18, temperature 36.4 degrees Celsius, oxygen saturation 94% on room air. GENERAL: Patient is sleeping. Appears in no distress. HEENT: His head is normocephalic and atraumatic. He has normal eyelids. Normal conjunctivae. NECK: Supple. LUNGS: Normal respiratory effort. CARDIAC: Pulses are normal. ABDOMEN: Nondistended. SKIN: No skin rash. PSYCHIATRIC: Unable to access as patient will not arouse. NEUROLOGICAL: Patient minimally responsive to sternal rub. Opens eyes. Non verbal. DIAGNOSTIC TESTING AND LABORATORY VALUES: WBC 8.35, hemoglobin is 17.5, platelet count is 187. Sodium is 142, potassium 4.2, chloride 110, BUN is 14, which has improved from 19, creatinine was 1.47 and decreased to 1.13, glucose is 111, magnesium was 2.3. AST was 18, ALT was 15. Ammonia was negative or normal. TSH was normal. Urinalysis showed clear dark fluid, no protein, no glucose, trace ketones, 2+ blood, no bacteria. Ethanol level was negative. COVID-[address] noncontrast showed no hemorrhage, mass effect or evidence of acute territorial ischemia. CT chest, abdomen, and pelvis showed no acute infectious or inflammatory findings in the abdomen or pelvis, cardiomegaly. There was a 5 mm right middle lobe pulmonary nodule. Chest x-ray showed cardiomegaly, mild medial right lung base opacity suggestive of atelectasis versus pneumonia. ASSESSMENT AND PLAN: A 75-year-old male with a history of hypertension and Parkinson's disease, admitted with altered mental status/increased confusion with visual hallucinations. Symptoms may have been exacerbated by dehydration and has since received IV fluids. I did discuss reduction in the dose of Sinemet as this may be contributing to overall visual hallucinations. My suggestion would be to reduce dose of Sinemet to 4 tabs daily of the immediate release form as well as continuing the nightly extended release. He was sedated this afternoon due to agitation. Would avoid benzodiazepines. Can use Valproic acid 250 IV Q6 hr PRN as needed for agitation or Zyprexa 2.5 mg Q12h PRN. For visual hallucinations, I think the best option may be to add 12.5 mg of Seroquel twice daily. Otherwise, upon review of diagnostic testing performed on admission, there does not appear to be any signs of infectious etiology contributing to his increased confusion. Physical therapy and occupational therapy for any rehabilitation needs. The patient will be able to follow up with Dr. Blood on an outpatient basis. However, neurology will continue to follow while inpatient. Job ID: [id number] LEANDRA
--- NOTE | 2021-04-01 17:06 | Hospitalist Progress Note ---
Date of Service April 01, 2021 Assessment & Plan (1) Acute delirium: Plan: 75 yo M w/ PMH of Parkinson's Dz, HTN & HLD brought to the ED 03/31 with c/o worsening confusion and hallucinations by his . He is being managed in the floor for the following: #. Acute Delirium Admitting vitals stable, CBC/electrolytes/ammonia level WNL. BMP positive for mild TEJINDER likely secondary to worsening Parkinson's dz and dehydration. c/w IVF - might stop if he is eating okay tomorrow Per Pt's , he has recent neuro eval as outpatient and his amantidine was stopped last Saturday with a hope of resolution of his worsening hallucinations (since last 2 weeks) but it didn't and hence she brought him to the ED Neuro on board: recommended valproic acid 250 iv q6 prn or zyprexa 2.5 mg q12 prn for agitation. Also added seroquel 12.5 BID for visual hallucinations. Will defer change in Parkinson's drug doses to neurology. c/w with supportive management, PT/OT. #. TEJINDER on CKD BUN and Cr elevated at presentation on IVF , back to baseline, Cr now 1.13 #. DVT Px SCDs might further make him delirious c/w heparin SC Admission and Anticipated Discharge Date Admission Date: April 01, 2021 Subjective Pt was lying in bed, confused and mildly agitated. It was difficult to get much from the patient. Later in the day, talked with his about his recent developments. Also talked with neurology while in patient's room. Per RN, he t ook his iv out in the morning, he ate some breakfast, no BM recorded and he was trying to climb out of bed and agitated later in the morning - difficult to control with 2 people. Physical Exam Physical Exam: GENERAL: confused and mildly agitated, on RA. HEENT: No pallor, no icterus. Pupils equal, round and reactive to light. Oral mucosa moist. NECK: No JVD, no neck masses. HEART: S1 and S2 heard. Regular rate and rhythm. No murmur, no gallop. RESPIRATORY SYSTEM: Normal AP diameter. No accessory muscle use. No wheezing, no crackles. ABDOMEN: Soft, bowel sounds present, nontender, no distention. CENTRAL NERVOUS SYSTEM: Alert and oriented x3. No facial droop. Speech is clear. Obeys simple commands. Moves extremities. EXTREMITIES: No edema, no erythema seen. Results & Data Results & Data ([facility]) Vital Signs (Past 12 Hours) Vital Signs Temp Pulse Pulse Resp BP BP Pulse Ox 04/01/21 15:40 36.4 C L 78 20 148/67 H 95 04/01/21 12:10 36.4 C L 88 18 157/85 H 94 04/01/21 08:45 94 H 04/01/21 06:44 36.5 C 96 H 17 155/101 H 97 04/01/21 06:00 84 22 148/105 H 96 04/01/21 05:30 85 22 130/74 96
[2021-04-01] MEDS: VALPROATE SOD 250 MG in DEXTROSE 5% 50 ML IV PRN (17:18)
[2021-04-01] MEDS ORDERED: OLANZAPINE 2.5 MG TAB PO PRN (17:50)
[2021-04-01] MEDS ORDERED: OLANZapine 10 MG/2.1 ML SDV IM STA (17:53)
[2021-04-01] MEDS: CARBIDOPA/LEVODOPA 50/200MG EXT REL TAB PO SCH (21:42)
[2021-04-02] MEDS: HEPARIN SOD 5,000 UNIT/0.5 ML VIAL SQ SCH ×3 (06:08→21:31)
[2021-04-02] MEDS: SODIUM CHLORIDE 0.45 % 1,000 ML IV SCH ×2 (06:13→16:35)
[2021-04-02] MEDS: QUEtiapine FUMARATE 25 MG TABLET PO SCH ×2 (07:29→09:49)
[2021-04-02] MEDS: VALPROATE SOD 250 MG in DEXTROSE 5% 50 ML IV PRN (09:36)
[2021-04-02] MEDS: ASPIRIN 81 MG ECTAB PO SCH (09:49)
[2021-04-02] MEDS: CARBIDOPA/LEVODOPA 25/100MG TAB PO SCH ×3 (09:49→20:44)
[2021-04-02] MEDS: MULTIVITAMIN TAB PO SCH (09:49)
--- NOTE | 2021-04-02 13:43 | Hospitalist Progress Note ---
Date of Service April 02, 2021 Assessment & Plan (1) Acute delirium: Plan: 75 yo M w/ PMH of Parkinson's Dz, HTN & HLD brought to the ED 03/31 with c/o worsening confusion and hallucinations by his . He is being managed in the floor for the following: #. Acute Delirium Admitting vitals stable, CBC/electrolytes/ammonia level WNL. BMP positive for mild TEJINDER likely secondary to worsening Parkinson's dz and dehydration. c/w IVF - rate decreased to 50 (from 100) might stop if he is eating okay tomorrow Per Pt's , he has recent neuro eval as outpatient and his amantidine was stopped last Tuesday 03/27 with a hope of resolution of his worsening hallucinations (since last 2 weeks) but it didn't and hence she brought him to the ED Neuro on board: recommended valproic acid 250 iv q6 prn or zyprexa 2.5 mg q12 prn for agitation. Also added seroquel 12.5 BID for visual hallucinations. Will defer change in Parkinson's drug doses to neurology. c/w with supportive management, PT/OT. #. TEJINDER on CKD BUN and Cr elevated at presentation on IVF , back to baseline, Cr now 1.13 RESOLVED #. DVT Px SCDs might further make him delirious c/w heparin SC f/u with neuro recs/ f/u with PT / OT recs. Admission and Anticipated Discharge Date Admission Date: April 01, 2021 Subjective Pt was lying in bed, confused and disoriented and mildly agitated. He was not able to reply or follow commands today. Per RN patient was agitated in the morning and needed prn meds. Physical Exam Physical Exam: GENERAL: confused and mildly agitated, on RA. HEENT: No pallor, no icterus. Pupils equal, round and reactive to light. Oral mucosa moist. NECK: No JVD, no neck masses. HEART: S1 and S2 heard. Regular rate and rhythm. No murmur, no gallop. RESPIRATORY SYSTEM: Normal AP diameter. No accessory muscle use. No wheezing, no crackles. ABDOMEN: Soft, bowel sounds present, no distention. CENTRAL NERVOUS SYSTEM: Alert and oriented x3. No facial droop. Moves extremities. EXTREMITIES: No edema, no erythema seen. Results & Data Results & Data ([facility]) Vital Signs (Past 12 Hours) Vital Signs Temp Pulse Pulse Pulse Resp BP BP 04/02/21 11:23 36.5 C 94 H 22 140/86 04/02/21 10:46 83 04/02/21 07:11 36.5 C 85 20 159/89 H 04/02/21 04:30 36.4 C L 79 79 16 128/78 04/02/21 03:36 97 H Pulse Ox 04/02/21 11:23 92 04/02/21 10:46 04/02/21 07:11 97 04/02/21 04:30 96 04/02/21 03:36
--- NOTE | 2021-04-02 14:41 | Neurology Progress Note ---
Date of Service April 02, 2021 Assessment & Plan (1) Hypertension: (2) Hallucinations: (3) Acute delirium: Plan: A 75-year-old male with known Parkinson's disease on Sinemet and newly worsening visual hallucinations admitted for ongoing visual hallucinations and altered mental status. Mentation did improve upon arrival with use of IV fluids as he was noted to have an acute kidney injury. No signs of infection were found. Urinalysis and chest x-ray were negative for a UTI or pneumonia. He has no leukocytosis or and has been afebrile. Shortly after admission he became very agitated and delirious. He was combative to staff and required Ativan which then caused significant sedation. Upon awakening he then required Zyprexa. Today he is more alert although refusing to take his medications speech is garbled and incomprehensible and he appears somewhat paranoid. He has not had his Sinemet and at home does take 5 immediate release tablets as well as an extended release tablet. He also did receive 1 dose of an antipsychotic medication for agitation/combativeness. I do believe hospital-acquired delirium is contributing to a parkinsonian dementia as well as other consideration would be Lewy body dementia. For now I would recommend stopping Zyprexa. Can continue to utiliz valproic acid 500 mg IV every 12 hours as needed for agitation/mood stabilization. For now given the ongoing delirium and refusing to take oral medications we will need to observe for neuroleptic malignant syndrome. I would strongly recommend we obtain a CK level as well as a lactic acid level. Patient may require restraints as IV fluids may help. Patient may also require restraints for use of an NG tube in order to give him his Sinemet. I did discuss this with the nurse at bedside. Neurology will continue to follow. Admission and Anticipated Discharge Date Admission Date: April 02, 2021 Subjective Patient was seen and examined this afternoon. A sitter is at bedside. The patient is awake this afternoon and appears paranoid frequently looking to the right is the sitter at bedside notes that he has been seeing visual hallucinations off to his right. He is intermittently following simple commands although refusing to do most. He appears very rigid and paranoid. His speech is muffled and very incomprehensible. He denies pain. Per discussion with nurse he did require Zyprexa yesterday afternoon for agitation. He is not taking his oral medications and spitting them out. He did not want to eat today. Physical Exam Physical Exam: Patient appears acutely ill. He is a thin appearing male. He appears very anxious/paranoid. Is looking about the room often repetitively looking off to the right noting some hallucinations. His speech is garbled and very soft. He is intermittently following commands when asked to lift his left arm he says why. He is moving all 4 extremities. At times he is grasping the bed with his left hand and appears tremulous. His tongue is midline. His face is symmetric his eyes are midline and his ocular extraocular muscles are intact. His pupils are symmetric. Pulses normal. not cooperating for [id number] testing. Gait evaluation deferred. Results & Data ([facility]) Vital Signs (Past 12 Hours) Vital Signs Temp Pulse Pulse Pulse Resp BP BP 04/02/21 11:23 36.5 C 94 H 22 140/86 04/02/21 10:46 83 04/02/21 07:11 36.5 C 85 20 159/89 H 04/02/21 04:30 36.4 C L 79 79 16 128/78 04/02/21 03:36 97 H Pulse Ox 04/02/21 11:23 92 04/02/21 10:46 04/02/21 07:11 97 04/02/21 04:30 96 04/02/21 03:36
--- NOTE | 2021-04-02 18:35 | XRay Report ---
KUB HISTORY: Status post placement of a feeding tube verify corsafe placement COMPARISON: Chest radiograph 03/31/2021. FINDINGS: Status post placement of a feeding tube with distal tip projected laterally within the expe cted location of the gastroesophageal junction. The lower abdomen is excluded from the [id number]. Bowel gas pattern appears nonobstructive. The lower chest is unremarkable. No renal calculi. No ure teral calculi. No pneumoperitoneum or pneumatosis. No fracture. IMPRESSION: Status post placement of a feeding tube with distal tip directed superiorly in the expected location of the gastroesophageal junction. Advancement with follow-up imaging recommended. ACT 112: Negative or not required by law. The above report was generated using voice recognition software. It may contain grammatical, syntax o r spelling errors. Electronically signed by: Benjy Jensen M.D. 04/02/2021 6:34 PM
--- NOTE | 2021-04-02 19:23 | XRay Report ---
KUB HISTORY: Status post placement of an enteric tube verify KUB placement COMPARISON: KUB of same day at 6:03 PM FINDINGS: The lower abdomen is excluded from the tbsld-by-sovy. A feeding tube is present with distal tip projected superiorly within the region of the proximal stomach. No renal calculi. No ureteral c alculi. No pneumoperitoneum or pneumatosis. No fracture. IMPRESSION: Slight advancement of the feeding tube with distal tip projected superiorly within the proximal stoma ch. Advancement with follow-up imaging again recommended. ACT 112: Negative or not required by law. The above report was generated using voice recognition software. It may contain grammatical, syntax o r spelling errors. Electronically signed by: Benjy Jensen M.D. 04/02/2021 7:21 PM
[2021-04-02] MEDS: CARBIDOPA/LEVODOPA 50/200MG EXT REL TAB PO SCH (20:44)
[2021-04-03] MEDS: HEPARIN SOD 5,000 UNIT/0.5 ML VIAL SQ SCH ×3 (05:30→20:19)
[2021-04-03 06:08] LABS: Appearance Urine Clear (Clear); Bilirubin Urine Negative (Negative); Blood Urine Negative (Negative); Color Urine Orange; Glucose Urine UA Negative (Negative); Ketones Urine 2+ (Negative); Leukocyte Esterase Urine Negative (Negative); Nitrite Urine Negative (Negative); Protein Urine Negative (Negative); Urobilinogen Urine Negative (Negative); pH Urine 5.5 (4.5-7.5)
[2021-04-03 07:34] LABS: Hematocrit (blood only) 49.6 % (42-52); Hemoglobin 17.2 g/dL (14.0-18.0); Mean Corpuscular Hemoglobin 33.5 pg (25-34); Mean Corpuscular Hgb Conc 34.7 g/dL (32-36); Mean Corpuscular Volume 96.5 fL (80-100); Mean Platelet Volume 9.7 fL (7.4-10.4); Platelet Count 192 K/uL (130-400); RDW Coefficient of Variation 12.6 % (11.5-14.5); RDW Standard Deviation 44.2 fL (36.4-46.3); Red Blood Count 5.14 M/uL (4.7-6.1); White Blood Count 7.39 K/uL (4.8-10.8)
[2021-04-03 07:53] LABS: BUN Creatinine Ratio 15.9 (10-20); Calcium 8.5 mg/dl (8.5-10.1); Creatinine Clr Calc Pharmacy 62.5 ml/min; Est GFR (African American) 81.8 ml/min; Est GFR (Non-African American) 70.6 ml/min; Potassium 4.1 mmol/L (3.5-5.1)
--- NOTE | 2021-04-03 08:01 | XRay Report ---
HAO CLINICAL HISTORY: coresafe placement COMPARISON STUDY: HAO April 02, 2021 at 6:53 PM. FINDINGS: The tip of the feeding tube is within the body of the stomach. Visualized bowel gas pattern is unremarkable although the mid to lower abdomen and pelvis are not included on this exam. IMPRESSION: Tip of feeding tube within the body of the stomach. ACT 112: Negative or not required by law. Electronically signed by: Ryan Khan M.D. 04/03/2021 8:00 AM
[2021-04-03] MEDS: POLYETHYLENE (MIRALAX) 17 GM PACK PO SCH (08:05)
[2021-04-03] MEDS: CARBIDOPA/LEVODOPA 25/100MG TAB PO SCH ×3 (08:05→20:20)
[2021-04-03] MEDS: MULTIVITAMIN TAB PO SCH (08:05)
[2021-04-03] MEDS: ASPIRIN 81 MG ECTAB PO SCH (08:05)
[2021-04-03] MEDS: SODIUM CHLORIDE 0.45 % 1,000 ML IV SCH (12:37)
[2021-04-03] MEDS: VALPROATE SOD 250 MG in DEXTROSE 5% 50 ML IV PRN (13:05)
--- NOTE | 2021-04-03 15:52 | Neurology Progress Note ---
Date of Service April 03, 2021 Assessment & Plan Admission and Anticipated Discharge Date Admission Date: April 02, 2021 Dee Rooney is a 75 year old male with PMH- Parkinson's disease on Sinemet and newly w orsening visual hallucinations admitted for ongoing visual hallucinations and altered mental status. Mentation did improve upon arrival with use of IV fluids as he was noted to have an acute kidney injury. No signs of infection were found. Urinalysis and chest x-ray were negative for a UTI or pneumonia. He has no leukocytosis or and has been afebrile. Shortly after admission he became very agitated and delirious. He was combative to staff and required Ativan which then caused significant sedation. Upon awakening he then required Zyprexa. Today he is more alert although refusing to take his medications speech is garbled and incomprehensible and he appears somewhat paranoid. He has not had his Sinemet and at home does take 5 immediate release tablets as well as an extended release tablet. He also did receive 1 dose of an antipsychotic medication for agitation/combativeness. I do believe hospital-acquired delirium is contributing to a parkinsonian dementia as well as other consideration would be Lewy body dementia. For now I would recommend stopping Zyprexa. Can continue to utiliz valproic acid 500 mg IV every 12 hours as needed for agitation/mood stabilization. For now given the ongoing delirium and refusing to take oral medications we will need to observe for neuroleptic malignant syndrome. I would strongly recommend we obtain a CK level as well as a lactic acid level. Patient may require restraints as IV fluids may help. Patient may also require restraints for use of an NG tube in order to give him his Sinemet. I did discuss this with the nurse at bedside. Neurology will continue to follow. Results & Data ([facility]) Vital Signs (Past 12 Hours) Vital Signs Temp Pulse Pulse Pulse Resp BP Pulse Ox 04/03/21 15:15 36.5 C 63 19 128/70 94 04/03/21 11:24 36.4 C L 66 22 155/73 H 96 04/03/21 09:26 72 04/03/21 07:12 36.4 C L 71 18 145/87 H 97 04/03/21 03:58 36.7 C 82 18 110/54 L 98
--- NOTE | 2021-04-03 17:55 | Hospitalist Progress Note ---
Date of Service April 03, 2021 Assessment & Plan (1) Acute delirium: Plan: 75 yo M w/ PMH of Parkinson's Dz, HTN & HLD brought to the ED 03/31 with c/o worsening confusion and hallucinations by his . He is being managed in the floor for the following: #. Acute Delirium Admitting vitals stable, CBC/electrolytes/ammonia level WNL. BMP positive for mild TEJINDER likely secondary to worsening Parkinson's dz and dehydration. c/w IVF at 50 ml/hr Per Pt's , he has recent neuro eval as outpatient and his amantidine was stopped last Tuesday 03/27 with a hope of resolution of his worsening hallucinations (since last 2 weeks) but it didn't and hence she brought him to the ED Neuro on board: recommended valproic acid 250 iv q6 prn. Advise against zyprexa 2.5 mg q12 prn for agitation or seroquel 12.5 BID for visual hallucinations when patient is not taking sinemet. In a desperate event only, use ativan low dose. Will defer change in Parkinson's drug doses to neurology. c/w with supportive management, PT/OT. #. TEJINDER on CKD BUN and Cr elevated at presentation on IVF , back to baseline, Cr now 1.13 RESOLVED #. DVT Px SCDs might further make him delirious c/w heparin SC f/u with neuro recs/ f/u with PT / OT recs. Admission and Anticipated Discharge Date Admission Date: April 02, 2021 Subjective Pt was lying in bed, calm and AOx3 today. He was able to cooperate minimally. He was on two point restraints and had coresafe tube in for meds administration. Physical Exam Physical Exam: GENERAL: AOx3 and calm today, on RA. HEENT: No pallor, no icterus. Pupils equal, round and reactive to light. Oral mucosa moist. NECK: No JVD, no neck masses. HEART: S1 and S2 heard. Regular rate and rhythm. No murmur, no gallop. RESPIRATORY SYSTEM: Normal AP diameter. No accessory muscle use. No wheezing, no crackles. ABDOMEN: Soft, bowel sounds present, no distention. CENTRAL NERVOUS SYSTEM: Alert and oriented x3. No facial droop. Moves extremities. EXTREMITIES: No edema, no erythema seen. Results & Data Results & Data ([facility]) Vital Signs (Past 12 Hours) Vital Signs Temp Pulse Pulse Resp BP Pulse Ox 04/03/21 15:15 36.5 C 63 19 128/70 94 04/03/21 11:24 36.4 C L 66 22 155/73 H 96 04/03/21 09:26 72 04/03/21 07:12 36.4 C L 71 18 145/87 H 97
--- NOTE | 2021-04-03 18:10 | Progress Notes ---
SUBJECTIVE: I am seeing the patient in followup of Parkinson's disease with worsening confusion and hallucinations. As an outpatient, I advised him to discontinue amantadine, which he has done, but re mained unimproved. He was admitted to the hospital office facility and there was no evidence of infe ction was found. After admission, he was agitated and delirious, combative, required Ativan, which t hen caused sedation. Upon awakening, he required Zyprexa, but would not take medications. Today, he is feeling somewhat better. He has had an NG tube placed, wonders why he is not getting his medicat ions. Hallucinations are diminished. He appears to have dry oral mucosal membranes. He is extremel y hypophonic. There is some mild rigidity. All 4 extremities are greater than antigravity. No curr ent resting tremor is noted. CURRENT MEDICATIONS: Include levodopa/carbidopa 50/200 at bedtime immediate release levodopa/carbido pa 25/100 three times a day. He has been prescribed Seroquel most recently, but that was on hold due to not taking by mouth and he has a prescription for Zyprexa 2.5 q. 12 hours. ASSESSMENT AND PLAN: Delirium in part related to disease, in part related to amantadine. Symptoms i nitially worsened due to sedation. The patient seems much improved. I would encourage oral intake. I think that he sounds less rigid than he was yesterday, which is reassuring. I would reinitiate hi s Parkinson's medication as soon as possible or continue to give via NG tube. If the patient is not taking by mouth and not taking by tube, an option to Seroquel might be a Zyprexa melt. We will follo w with you. Job ID: [id number]
[2021-04-03] MEDS: CARBIDOPA/LEVODOPA 50/200MG EXT REL TAB PO SCH (20:20)
[2021-04-04] MEDS: HEPARIN SOD 5,000 UNIT/0.5 ML VIAL SQ SCH ×3 (07:40→22:05)
[2021-04-04] MEDS: SODIUM CHLORIDE 0.45 % 1,000 ML IV SCH (07:50)
[2021-04-04] MEDS: ASPIRIN 81 MG ECTAB PO SCH (08:30)
[2021-04-04] MEDS: CARBIDOPA/LEVODOPA 25/100MG TAB PO SCH ×3 (08:30→19:57)
[2021-04-04] MEDS: MULTIVITAMIN TAB PO SCH (08:30)
--- NOTE | 2021-04-04 19:18 | Progress Notes ---
DATE OF SERVICE: 04/04/2021 SUBJECTIVE: I am seeing Mr. Covarrubias in followup. He has Parkinson's disease and was admitted with de lirium with hallucinations. He is doing a little less well today, a little more sleepy and a little more rigid. He has fortunately been taking food by mouth and some pills by mouth as well. He has no t required Depakote p.r.n. for agitation since yesterday and in general has only used one dose each d ay. His plans on bringing him home. PHYSICAL EXAMINATION: VITAL SIGNS: Vitals today are blood pressure 156/41, pulse 117, respirations 22, temperature 36.8. The patient has no complaints. He is extremely hypophonic. No obvious facial asymmetry. There is s ome rigidity, greater in the legs than the arms. IMPRESSION: Parkinson's disease with delirium in part related to amantadine. The patient has subseq uently received Ativan, been quite sedated and then improved somewhat. Today, he is not quite as well in terms of confusion. I do not see anything focal on exam. PLAN: For Parkinson's disease, I would continue to try to make sure the patient is getting his levod opa/carbidopa on a regular basis to avoid withdrawal rigidity such as NMS. Noted is that his CK from yesterday was 511 and BUN and creatinine 16/1. Consider hydration with IV fluids. Options includin g hydration include potentially using benzodiazepines, which I would be very hesitant to do given his prior response. Bromocriptine could be used via the NG tube at doses of 2.5 mg every 6-8 hours; this would likely cause increased confusion. I will attempt to mobilize the patient as soon as possible. We will follow with you. Job ID: [id number]
--- NOTE | 2021-04-04 19:19 | Progress Notes ---
ADDENDUM DATE OF SERVICE: 04/04/2021 I see that Zyprexa and Seroquel have been discontinued. I think in this setting, that is appropriate . We will communicate with Dr. Reynolds regarding further recommendations. Job ID: [id number]
--- NOTE | 2021-04-04 19:53 | Hospitalist Progress Note ---
Date of Service April 04, 2021 Assessment & Plan (1) Acute delirium: Plan: 75 yo M w/ PMH of Parkinson's Dz, HTN & HLD brought to the ED 03/31 with c/o worsening confusion and hallucinations by his . He is being managed in the floor for the following: #. Acute Delirium Admitting vitals stable, CBC/electrolytes/ammonia level WNL. BMP positive for mild TEJINDER likely secondary to worsening Parkinson's dz and dehydration. c/w IVF at 50 ml/hr Per Pt's , he has recent neuro eval as outpatient and his amantidine was stopped last Tuesday 03/27 with a hope of resolution of his worsening hallucinations (since last 2 weeks) but it didn't and hence she brought him to the ED Neuro on board: recommended valproic acid 250 iv q6 prn. Advise against zyprexa 2.5 mg q12 prn for agitation or seroquel 12.5 BID for visual hallucinations when patient is not taking sinemet. In a desperate event only, use ativan low dose. Also advised to avoid promethazine. Will defer change in Parkinson's drug doses to neurology. c/w with IV hydration, supportive management, PT/OT consulted for evaluation and daily mobilization. Will order CK for tomorrow a.m. Continue with levodopa/carbidopa as a scheduled. #. Lung nodule Admitting CTAP showed 5 mm right middle lobe pulmonary nodule Patient has history of working in [employer] for 30 years Patient is smoked for Tranxene. During his teenage years per his Recommendation is to follow-up with CT scan in 3 months Patient's aware. #. TEJINDER on CKD BUN and Cr elevated at presentation on IVF , back to baseline, Cr now 1.13 RESOLVED #. DVT Px SCDs might further make him delirious c/w heparin SC Disposition: Patient's wants to take him to home with home health. PT/OT recommends inpatient rehab at discharge Admission and Anticipated Discharge Date Admission Date: April 02, 2021 Subjective Pt was lying in bed, calm and not oriented today. He was not able to cooperate even minimally. He was on two point restraints and had coresafe tube in for meds administration. Restraints DC'd todaycommunicated with the patient's . He ate his 50% of lunch today per RN. He was agitated in the morning. His wants to take him to home with home health. Physical Exam Physical Exam: GENERAL: AOx0 but calm at bedside exam, no cooperation, on RA. HEENT: No pallor, no icterus. Pupils equal, round and reactive to light. Oral mucosa moist. NECK: No JVD, no neck masses. HEART: S1 and S2 heard. Regular rate and rhythm. No murmur, no gallop. RESPIRATORY SYSTEM: Normal AP diameter. No accessory muscle use. No wheezing, no crackles. ABDOMEN: Soft, bowel sounds present, no distention. CENTRAL NERVOUS SYSTEM: Alert and oriented x0. No facial droop. Moves extremities. EXTREMITIES: No edema, no erythema seen. Results & Data Results & Data ([facility]) Vital Signs (Past 12 Hours) Vital Signs Temp Pulse Pulse Pulse Resp BP Pulse Ox 04/04/21 18:45 36.8 C 89 20 113/73 96 04/04/21 16:00 117 H 04/04/21 15:43 36.8 C 118 H 22 156/41 H 04/04/21 11:23 36.5 C 96 H 20 151/79 H 95 04/04/21 08:00 97 H 04/04/21 07:51 36.6 C 104 H 24 155/86 H 95
[2021-04-04] MEDS: CARBIDOPA/LEVODOPA 50/200MG EXT REL TAB PO SCH (19:57)
[2021-04-05] MEDS: SODIUM CHLORIDE 0.45 % 1,000 ML IV SCH (03:11)
[2021-04-05] MEDS: HEPARIN SOD 5,000 UNIT/0.5 ML VIAL SQ SCH ×3 (05:14→19:54)
[2021-04-05] MEDS: CARBIDOPA/LEVODOPA 25/100MG TAB PO SCH ×3 (07:52→19:54)
[2021-04-05] MEDS: MULTIVITAMIN TAB PO SCH (07:52)
[2021-04-05] MEDS: ASPIRIN 81 MG ECTAB PO SCH (07:52)
[2021-04-05] MEDS: POLYETHYLENE (MIRALAX) 17 GM PACK PO SCH (07:55)
--- NOTE | 2021-04-05 16:04 | Neurology Progress Note ---
Date of Service April 05, 2021 Assessment & Plan (1) Parkinsons disease: Plan: 1. continue home medications 2. Sinemet 25/100 mg TID and 50/200 mg hs 3. amantadine was stopped do not restart 4. PT/OT- home health 5. keep well hydrated CK is still elevated 6. should sent home with low dose Seraquel or Zyprexa melts incase hallucination and agitation is a problem 7. return in 4-6 weeks Nitza Blood MD Admission and Anticipated Discharge Date Admission Date: April 02, 2021 Supervising Physician Co-Signing Physician Notes I have seen and discussed above patient with Dr Nitza Blood, neurology. Patient seen and discussed with Nitza Edwards. The patient is much more awake and alert today having been hydrated yesterday. CK remains unchanged at 515. He has not had any further hallucinations. NG tube is been removed and he is taking by mouth. Exam is markedly hypophonic. There are some resting tremor. There is decreased blink frequency. There is modest generalized bradykinesia. All 4 limbs are antigravity. Rigidity much improved. Impression hallucinations which were ongoing and worsening likely at least contributed by amantadine which is now been just discontinued. Subsequent delirium associated with hospitalization benzodiazepines. Rigidity possibly related to patient refusing Parkinson's medications. The patient's plans on bringing him home although we discussed the difficulty of doing so especially since at present he is not ambulatory. She understands this and wants to bring him at home. Home nursing well apparently be in the home tomorrow. She will go home with a urinal and a bedpan. Home physical therapy will make some recommendations regarding bedside commode and ambulatory status. I would send him home with the Sinemet and the Sinemet CR and either Seroquel or Zyprexa in low dose in case there is significant agitation or hallucinations. I do believe it would be better if the patient had some inpatient rehabilitation although I see that patient's point and that the patient has not done well in an inpatient setting. Patient should see me in follow-up in 4 to 6 weeks Nitza Blood MD Dee Rooney is a 75 year old male with PMH Parkinson's disease on Sinemet and worsening visual hallucinations admitted for ongoing visual hallucinations and altered mental status. Mentation did improve upon arrival using IV fluids as he was noted to have an acute kidney injury. Urinalysis and chest x-ray were negative for a UTI or pneumonia. After admission he became very agitated and delirious. He was combative to staff and required Ativan which then caused significant sedation. Upon awakening he then required Zyprexa. He didn't have his Sinemet because he was refusing meds. An corflo was placed and Sinemet was given. He was also given Serquel for the agitation and his Amantidine was stopped. His is in the room and states she wants to take him home today. He says he walked a few steps today with the walker. Review of Systems Review of Systems: All systems reviewed & are unremarkable except as noted in Subjective Physical Exam Physical Exam: Physical Exam: Constitutional: appearance weak frail mask facies Ears, Nose, Mouth and Throat: mucous membranes moist, no injection and skin normal, eyes normal Cardiovascular: normal S-1 and S-2 and regular rate and rhythm Respiratory: course breath sounds Musculoskeletal: no peripheral edema and good distal pulses Skin: no stigmata of neurocutaneous disease noted and normal and intact Eyes: extraocular muscles intact (EOMI) decreased blink frequency NEUROLOGIC EXAMINATION: Mental status: Alert and interactive Oriented to person Speech soft pressured speech hard to understand Cranial Nerves smile symmetric Sensory: intact to light and cool touch Gait/Stance: Posture sitting up in bed Motor: Negative for pronator drift of out stretched arms with eyes closed, no reaching tremor, +cog wheeling bilaterally, LE rigidity Strength: 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
--- NOTE | 2021-04-05 18:16 | Hospitalist Progress Note ---
Date of Service April 05, 2021 Assessment & Plan (1) Parkinsons disease: Plan: Currently tolerating p.o., NG tube has been removed. Patient is much improved from a mental status standpoint. Continue Sinemet at original dose. (2) Acute delirium: Plan: Resolved, do not continue amantadine per neurology. For now hold antipsychotics as no delirium present, may need low-dose Seroquel or Zyprexa as needed. (3) Lung nodule: Plan: 5 mm right middle lobe pulmonary nodule, nonemergent chest CT follow-up recommended in 3 months time. (4) Ambulatory dysfunction: Plan: Therapist recommendations include inpatient rehab, however, patient's feels she is able to take care of him at home and prefers to take him out of the inpatient hospital setting. DME orders with scripts sent with case management. Awaiting transport via letter van in a.m. (5) DVT prophylaxis: Plan: Heparin Full code Disposition-to home with home health in a.m., pending litter van transport. Lillian Holt DO [facility] Admission and Anticipated Discharge Date Admission Date: April 02, 2021 Subjective 75-year-old man with Parkinson's on Sinemet admitted for ongoing visual hallucinations and delirium. The patient is oriented and talking today He has made a significant improvement per medical staff and his NG tube was removed and he is tolerating oral intake Inpatient rehab recommended secondary to rigidity and recent confusion with deconditioning-physical therapist discussed situation with patient's who would like to take him home Met case management social worker at bedside to discuss DME equipment needed in the home, provided scripts, transport not available till a.m. Review of Systems Review of Systems: All systems were reviewed and negative except as indicated in HPI above. Physical Exam Physical Exam: CONSTITUTIONAL: WNWD, vitals as above, NAD EYES: EOMI bilaterally, PERRL, normal conjunctivae, no scleral icterus ENT: external ear and nose normal, hypophonic voice, MMM RESPIRATORY: clear to auscultation bilaterally, no crackles, rales or wheezes, normal respiratory effort CARDIOVASCULAR: regular rate and rhythm, S1 and 2 heard without murmurs, gallops or rubs, no JVD, no peripheral edema GASTROINTESTINAL: soft, nontender, nondistended, no guarding MUSCULOSKELETAL: Hand beam dyer left greater than right, intact, biceps/triceps 5 out of 5, there is strength in his legs generally, however flexion of the knee is difficult secondary to rigidity and Parkinson's. SKIN: warm and dry NEUROLOGIC: Some bruising noted on the right anterior tibia, left knee reflex 2+, could not elicit brachioradialis reflex bilaterally. CN 2-12 grossly intact, normal cognition, rigidity present in all limbs, when asked to lift up his right arm both arms go up and movements appear forced and uncooperative despite the patient clearly trying his best PSYCHIATRIC: alert cooperative and oriented to person, place and time. Results & Data Results & Data ([facility]) Vital Signs (Past 12 Hours) Vital Signs Temp Pulse Pulse Resp BP Pulse Ox 04/05/21 15:58 36.4 C L 65 18 121/74 94 04/05/21 15:22 72 04/05/21 11:40 36.5 C 77 18 124/80 95 04/05/21 08:00 94 H 04/05/21 07:00 36.5 C 73 20 149/83 H 96 Laboratory Results Cardiac Enzymes 04/05/21 Range/Units 07:15 Total Creatine Kinase 515 H (39-308) U/L Medications Administered Current Inpatient Medications Acetaminophen (Acetaminophen 325 Mg Tab) 650 mg PO Q4H PRN PRN Reason: Pain or Fever Stop: 05/01/21 06:42 Aspirin (Aspirin 81 Mg Ectab) 81 mg PO DAILY JM Stop: 05/01/21 08:59 Last Admin: 04/05/21 07:52 Dose: 81 mg Documented by: Carbidopa/Levodopa (Carbidopa/Levodopa 50/200mg Ext Rel Tab) 1 tab PO HS JM Stop: 05/01/21 20:59 Last Admin: 04/04/21 19:57 Dose: 1 tab Documented by: Carbidopa/Levodopa (Carbidopa/Levodopa 25/100mg Tab) 1 tab PO TID JM Stop: 05/01/21 08:59 Last Admin: 04/05/21 13:31 Dose: 1 tab Documented by: Heparin Sodium (Porcine) (Heparin Sod 5,000 Unit/0.5 Ml Vial) 5,000 units SQ Q8 JM Stop: 05/01/21 06:42 Last Admin: 04/05/21 13:31 Dose: 5,000 units Documented by: Valproic Acid 250 mg/ Dextrose 52.5 mls @ 55 mls/hr IV Q6H PRN PRN Reason: Agitation Stop: 05/01/21 16:59 Last Infusion: 04/03/21 14:08 Dose: Infused Documented by: Multivitamins (Multivitamin Tab) 1 tab PO DAILY JM Stop: 05/01/21 08:59 Last Admin: 04/05/21 07:52 Dose: 1 tab Documented by: Olanzapine (Olanzapine 2.5 Mg Tab) 2.5 mg PO Q12H PRN PRN Reason: Agitation Stop: 05/01/21 17:59 Polyethylene Glycol (Polyethylene (Miralax) 17 Gm Pack) 17 gm PO MOWEFR JM Stop: 05/03/21 08:59 Last Admin: 04/05/21 07:55 Dose: 17 gm Documented by: Quetiapine Fumarate (Quetiapine Fumarate 25 Mg Tablet) 12.5 mg PO Q12H [facility] Stop: 05/01/21 16:59 Last Admin: 04/02/21 09:49 Dose: Not Given Documented by:
[2021-04-05] MEDS: CARBIDOPA/LEVODOPA 50/200MG EXT REL TAB PO SCH (19:54)
[2021-04-06] MEDS: HEPARIN SOD 5,000 UNIT/0.5 ML VIAL SQ SCH (05:16)
[2021-04-06] MEDS ORDERED: LACTATED RINGER'S 1,000 ML IV SCH (08:00)
[2021-04-06] MEDS: CARBIDOPA/LEVODOPA 25/100MG TAB PO SCH ×2 (08:43→12:51)
[2021-04-06] MEDS: MULTIVITAMIN TAB PO SCH (08:43)
[2021-04-06] MEDS: ASPIRIN 81 MG ECTAB PO SCH (08:43)
--- NOTE | 2021-04-06 12:27 | Discharge Summary ---
Date of Service April 06, 2021 Admission HPI Per Admitting Provider History obtained from patient, family, and records. Patient is a reliable historian at time of encounter. Medical history significant for Parkinson's disease, hypertension, hyperlipidemia. Patient seen on follow-up appointment for Parkinson's disease at [facility]rology last month. Patient's immediate release Sinemet increased to 5 times a day. Patient to continue Amantadine prescription as well. 2 weeks ago, patient noted by to have visual hallucinations. People coming into their home. Patient mistaking his for some other lady she looks like. Occasional auditory hallucinations of hearing music as per . Patient neurologist recommended stopping Amantadine. Persistent hallucinations despite cessation of Amantadine Rx. Immediate release Sinemet 5 times daily frequency decreased by covering neurologist provider to 3 times daily 3 days ago. Seroquel nightly initiated. Persistent hallucinations associated with more confusion and patient more having trouble moving as per . Patient told to stop Seroquel and to bring patient to the emergency room if symptoms still unmanageable. Patient denies chest pain, S OB, headache, abdominal pain, dysuria symptoms. Appetite okay as per . Patient noted improved mentation after IV hydration administered at the ER. 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 Admission Exam Per Admitting Provider GENERAL: Comfortable, chronic dysarthria, no respiratory distress SKIN: Normal color, warm HEENT: [place] palpebral conjunctivae, masklike facies, no ptosis, dry buccal mucosa NECK : Supple, no tenderness CHEST : CTA, no tenderness HEART : RRR, no obvious murmurs ABDOMEN: Some distention, nontender EXTREMITIES : No LE swelling/tenderness, no other conspicuous deformities noted NEUROLOGIC : Coherent, no facial asymmetry, mild dysarthria (chronic as per ), resting tremors, gait and stance not assessed Principal Diagnosis Parkinsons disease Acute delirium Lung nodule Ambulatory Dysfunction Discharge Exam CONSTITUTIONAL: WNWD, vitals as above, NAD EYES: EOMI bilaterally, PERRL, normal conjunctivae, no scleral icterus ENT: external ear and nose normal, hypophonic voice, MMM RESPIRATORY: clear to auscultation bilaterally, no crackles, rales or wheezes, normal respiratory effort CARDIOVASCULAR: regular rate and rhythm, S1 and 2 heard without murmurs, gallops or rubs, no JVD, no peripheral edema GASTROINTESTINAL: soft, nontender, nondistended, no guarding MUSCULOSKELETAL: Hand manpower development specialist left greater than right, intact, biceps/triceps 5 out of 5, there is strength in his legs generally, however flexion of the knee is difficult secondary to rigidity and Parkinson's. SKIN: warm and dry NEUROLOGIC: Some bruising noted on the right anterior tibia, left knee reflex 2+, could not elicit brachioradialis reflex bilaterally. CN 2-12 grossly intact, normal cognition, rigidity present in all limbs, when asked to lift up his right arm both arms go up and movements appear forced and uncooperative despite the patient clearly trying his best PSYCHIATRIC: alert cooperative and oriented to person, place and time. Discharge Data Allergies Allergy/AdvReac Type Severity Reaction Status Date / Time bee venom protein (honey bee) Allergy Unknown Verified 04/01/21 01:00 lisinopril AdvReac Cough Verified 04/01/21 01:00 Consultations 04/01/21 03:21 ED Decision to Admit Stat 04/01/21 06:43 Consult Neurology Routine Ordered Studies Laboratory Results WBC 7.39 K/uL (4.8-10.8) 04/03/21 07:04 RBC 5.14 M/uL (4.7-6.1) 04/03/21 07:04 Hgb 17.2 g/dL (14.0-18.0) 04/03/21 07:04 Hct 49.6 % (42-52) 04/03/21 07:04 MCV 96.5 fL (80-100) 04/03/21 07:04 MCH 33.5 pg (25-34) 04/03/21 07:04 MCHC 34.7 g/dL (32-36) 04/03/21 07:04 RDW Std Deviation 44.2 fL (36.4-46.3) 04/03/21 07:04 RDW Coeff of Celena 12.6 % (11.5-14.5) 04/03/21 07:04 Plt Count 192 K/uL (130-400) 04/03/21 07:04 MPV 9.7 fL (7.4-10.4) 04/03/21 07:04 Immature Gran % (Auto) 0.4 % 04/01/21 06:55 Neut % (Auto) 69.2 % 04/01/21 06:55 Lymph % (Auto) 19.5 % 04/01/21 06:55 [place] % (Auto) 9.6 % 04/01/21 06:55 Eos % (Auto) 0.7 % 04/01/21 06:55 Baso % (Auto) 0.6 % 04/01/21 06:55 Neut # (Auto) 5.78 K/uL (1.4-6.5) 04/01/21 06:55 Lymph # (Auto) 1.63 K/uL (1.2-3.4) 04/01/21 06:55 [place] # (Auto) 0.80 K/uL (0.11-0.59) H 04/01/21 06:55 Eos # (Auto) 0.06 K/uL (0-0.5) 04/01/21 06:55 Baso # (Auto) 0.05 K/uL (0-0.2) 04/01/21 06:55 Immature Gran # (Auto) 0.03 K/uL (0.00-0.02) H 04/01/21 06:55 Sodium 140 mmol/L (136-145) 04/03/21 07:04 Potassium 4.1 mmol/L (3.5-5.1) 04/03/21 07:04 Chloride 108 mmol/L (98-107) H 04/03/21 07:04 Carbon Dioxide 25 mmol/L (21-32) 04/03/21 07:04 Anion Gap 7.0 (3-11) 04/03/21 07:04 BUN 16 mg/dl (7-18) 04/03/21 07:04 Creatinine 1.02 mg/dl (0.6-1.4) 04/03/21 07:04 Est Cr Clr Drug Dosing 62.5 ml/min 04/03/21 07:04 Est GFR ( Amer) 81.8 ml/min 04/03/21 07:04 Est GFR (Non-Af Amer) 70.6 ml/min 04/03/21 07:04 BUN/Creatinine Ratio 15.9 (10-20) 04/03/21 07:04 Glucose 78 mg/dl (70-99) 04/03/21 07:04 POC Glucose 146 mg/dl (70-99) H 04/04/21 13:41 Lactate 1.1 mmol/L (0.4-2.0) 04/03/21 07:08 Calcium 8.5 mg/dl (8.5-10.1) 04/03/21 07:04 Magnesium 2.3 mg/dl (1.8-2.4) 03/31/21 22:50 Total Bilirubin 1.0 mg/dl (0.2-1) 03/31/21 22:50 AST 18 U/L (15-37) 03/31/21 22:50 ALT 15 U/L (12-78) 03/31/21 22:50 Alkaline Phosphatase 70 U/L (45-117) 03/31/21 22:50 Ammonia < 10.0 umol/L (11-32) L 04/01/21 06:55 Total Creatine Kinase 515 U/L (39-308) H 04/05/21 07:15 Total Protein 7.5 gm/dl (6.4-8.2) 03/31/21 22:50 Albumin 4.2 gm/dl (3.4-5.0) 03/31/21 22:50 Globulin 3.3 gm/dl (2.5-4.0) 03/31/21 22:50 Albumin/Globulin Ratio 1.3 (0.9-2) 03/31/21 22:50 TSH 2.470 uIu/ml (0.300-4.500) 03/31/21 22:50 Urine Color [place] 04/03/21 05:25 Urine Appearance Clear (Clear) 04/03/21 05:25 Urine pH 5.5 (4.5-7.5) 04/03/21 05:25 Ur Specific [place] 1.020 (1.000-1.030) 04/03/21 05:25 Urine Protein Negative (Negative) 04/03/21 05:25 Urine Glucose (UA) Negative (Negative) 04/03/21 05:25 Urine Ketones 2+ (Negative) H 04/03/21 05:25 Urine Blood Negative (Negative) 04/03/21 05:25 Urine Nitrite Negative (Negative) 04/03/21 05:25 Urine Bilirubin Negative (Negative) 04/03/21 05:25 Urine Urobilinogen Negative (Negative) 04/03/21 05:25 Ur Leukocyte Esterase Negative (Negative) 04/03/21 05:25 Urine WBC (Auto) 1-5 /hpf (0-5) 03/31/21 23:00 Urine RBC (Auto) >30 /hpf (0-4) H 03/31/21 23:00 U Hyaline Cast (Auto) 5-10 /lpf (0-5) H 03/31/21 23:00 U Epithel Cells (Auto) >30 /lpf (0-5) H 03/31/21 23:00 Urine Bacteria (Auto) Negative (Negative) 03/31/21 23:00 Ur Renal Epithelial Cell Not Reportable 03/31/21 23:00 Urine Mucus Present (None Prsent) A 03/31/21 23:00 Ethyl Alcohol mg/dL < 3.0 mg/dl (0-3) 04/01/21 06:55 COVID-19 Eval Order Covid19 at [facility] 04/01/21 03:15 SARS-CoV-2 (PCR) NEGATIVE (Negative) 04/01/21 03:15 Impressions Chest X-Ray 03/31/21 23:01 XR chest 1V portable HISTORY: 75 years-old Male weakness acute weakness COMPARISON: None TECHNIQUE: Portable AP view of the chest FINDINGS: Cardiac silhouette is mildly enlarged. No overt pulmonary edema. Mild subsegmental medial right lung base opacities. No pneumothorax or large pleural effusion. No overt pulmonary edema. Degenerative changes of the shoulders and spine. IMPRESSION: 1. Cardiomegaly without pulmonary edema. 2. Mild medial right lung base opacities suggestive of atelectasis versus pneumonia. ACT 112: Negative or not required by law. The above report was generated using voice recognition software. It may contain grammatical, syntax or spelling errors. Electronically signed by: Benjy Jensen M.D. 03/31/2021 11:[address] 03/31/21 23:48 CT SCAN OF THE BRAIN WITHOUT IV CONTRAST CLINICAL HISTORY: Change in mental status. Hallucinations. COMPARISON STUDY: No priors. TECHNIQUE: Unenhanced axial CT scan of the brain is performed from the vertex to the skull base. A dose lowering technique was utilized adhering to the principles of ALARA. CT DOSE: 614.27 mGy.cm FINDINGS: Brain parenchyma: There are age-related involutional changes noting moderate patchy subcortical and periventricular microangiopathic change. There is no hemorrhage, mass effect, or evidence of acute territorial ischemia by CT criteria. Quarles-white matter differentiation is preserved. No extra-axial fluid collection is seen. Ventricles, sulci, cisterns: Prominent secondary to involutional change. Intracranial vasculature: There is atherosclerotic calcification of the cavernous carotid and vertebral arteries. Calvarium: Unremarkable. Sinuses and mastoids: The visualized paranasal sinuses are clear. The mastoid air cells are well pneumatized. Orbits: The bony orbits are grossly intact. IMPRESSION: There is no hemorrhage, mass effect, or evidence of acute territorial ischemia by CT criteria. ACT 112: Negative or not required by law. Electronically signed by: Israel Alford M.D. 04/01/2021 7:54 AM Abdomen/Pelvis CT 04/01/21 01:23 CT SCAN OF THE ABDOMEN AND PELVIS WITHOUT IV CONTRAST CLINICAL HISTORY: Hematuria. COMPARISON STUDY: No priors. TECHNIQUE: CT scan of the abdomen and pelvis is performed from the lung bases to the proximal femora. Images are reviewed in the axial, sagittal, and coronal planes. IV contrast was not administered for this examination. A dose lowering technique was utilized adhering to the principles of ALARA. The examination is compromised by motion artifact. CT DOSE: 322.55 mGy.cm FINDINGS: Lung bases: The heart is enlarged and without pericardial effusion. The coronary arteries are densely calcified. There is a 5 mm pulmonary nodule in the right middle lobe. The lung bases are otherwise clear noting dependent atelectasis. Liver: The unenhanced liver is normal in size, contour, and attenuation. There is no intrahepatic biliary ductal dilatation. A calcified granuloma is noted in the posterior right lobe. Gallbladder: Unremarkable. Spleen: Normal in size and attenuation. Pancreas: Unremarkable. Adrenal glands: Unremarkable. Kidneys: The unenhanced kidneys are normal in size and without hydronephrosis. There are no renal calculi identified. There is no evidence of contour deforming renal mass lesion. The renal sinus cyst is noted on the left. Abdominal vasculature: The abdominal aorta is normal in course and caliber noting scattered foci of atherosclerotic calcification. Bowel: There is moderate colonic fecal retention. No bowel obstruction is seen. The appendix is well-visualized and normal. Peritoneum: There is no intraperitoneal free air or abdominal ascites. Lymphadenopathy: None. Pelvic viscera: The prostate gland is mildly enlarged and heterogeneous. The bladder and seminal vesicles are normal as imaged. Skeletal structures: The skeletal structures are osteopenic. There is mild to moderate lumbosacral spondylosis. No lytic or blastic lesions are seen. IMPRESSION: 1. There are no acute infectious or inflammatory findings in the abdomen or pelvis. 2. Cardiomegaly. 3. There is a 5 mm right middle lobe pulmonary nodule. Nonemergent chest CT follow-up is recommended in 3 months time for dedicated assessment of the thorax. 4. Additional findings as above. ACT 112: Negative or not required by law. Electronically signed by: Israel Alford M.D. 04/01/2021 8:38 AM KUB X-Ray 04/02/21 20:03 KUB CLINICAL HISTORY: coresafe placement COMPARISON STUDY: KUB April 02, 2021 at 6:53 PM. FINDINGS: The tip of the feeding tube is within the body of the stomach. Visualized bowel gas pattern is unremarkable although the mid to lower abdomen and pelvis are not included on this exam. IMPRESSION: Tip of feeding tube within the body of the stomach. ACT 112: Negative or not required by law. Electronically signed by: Ryan Khan M.D. 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 This began after amantadine was added to her regimen, which was stopped. However, visual hallucinations continued with occasional auditory hallucinations per . He was noted to have acute renal failure likely secondary to mild clinical dehydration and had improved mentation after IV fluid resuscitation in the ER. Creatinine was 1.47 on admission and by 04/03 was 1.02. He was admitted to the medicine service and neurology was consulted. He was sedated after agitation. Benzodiazepines were not recommended. Valproic acid as needed or Zyprexa as needed agitation resolved recommended and Seroquel was added to his regimen twice daily. No signs of infection were found. He had no leukocytosis and has been afebrile. Later during the hospital stay he awoke from sedation and was refusing to take his medicines with speech garbled and incomprehensible and he appeared somewhat paranoid. 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 Zy prexa was recommended to be stopped. A CK level was >500 and lactic acid level was ordered and 1.1. There was concern that he was off his Sinemet so physical restraints were used and NG tube was placed in order to administer Sinemet. He improved clinically and NG tube was discontinued on 04/05. At this point he was mentating at baseline and he and his both felt he was best served at home despite significant physical limitations and rigidity. Physical therapy and Occupational Therapy evaluated him and recommended rehab. However, his preferred to take him home. [facility] health was instituted at time of discharge and he was transferred via letter transport to home in stable condition. Close primary care follow-up is recommended. Close neurology follow-up in 2 weeks is recommended with further instructions on how to use Seroquel as needed if it comes to that. Total Time Total Time Spent Total Time Spent (In Minutes): 60 Discharge Plan Discharge Items Patient Disposition: Home - Home Health Services Reason For Visit: AMS, HALLUCINATIONS Discharge Diagnosis: Parkinsons disease Acute delirium Lung nodule Ambulatory Dysfunction Condition on Discharge: Fair Activity: Resume your previous activity Non-emergency contact: Primary Care Provider Call non-emergency contact if: you have any medication questions, your symptoms worsen, your pain is not controlled, your pain is worsening, your pain is unusual for you and your pain is concerning for you Follow-up/Referrals: Gloria Lopez MD [Primary Care Provider] - Diet: Heart Healthy Addtl Attending Provider Instructions: Please take all medications as instructed on discharge list below. Please do not resume AMANTADINE and followup with Neurology in the next few weeks to see how things are going. If there are issues with worsening confusion/hallucination, please contact [facility] to help utilize Seroquel which was previously prescribed for him. A pulmonary nodule was found incidentally on a chest cat scan performed during your admission. A repeat scan in 3 months is recommended, which may be ordered by your PCP. It is recommended that you have a follow-up appointment with your primary care provider (PCP) within the next week. This is to ensure you are still doing well after hospital discharge and to review medications. It was a pleasure taking care of you! Please call if you have any questions or problems. You can reach a [facility] hospitalist on duty at [facility] 24 hours a day by calling [phone]. Take care of yourself. Lillian Holt, DO [facility] Center[facility] Pending Studies at Discharge: No Stand-Alone Forms: My [facility] Medications and DC Order Prescriptions: Continued losartan 50 mg tablet 50 mg PO DAILY RF: 0 carbidopa-levodopa 50-200 mg tablet extended release 1 tab PO HS RF: 0 carbidopa-levodopa 25-100 mg tablet 1 tab PO TID RF: 0 multivitamin Tablet 1 tab PO DAILY RF: 0 garlic 400 mg Tablet,Delayed Release (Dr/Ec) 0 mg PO DAILY RF: 0 aspirin 81 mg Tablet,Delayed Release (Dr/Ec) 81 mg PO DAILY RF: 0 polyethylene glycol 3350 [Miralax] 17 gram/dose Powder 17 g PO MOWEFR RF: 0 omega-3 fatty acids Capsule 1,000 mg PO TID RF: 0 Vision Formula (with lutein) 1,000 unit-200 mg-60 unit-2 mg Tablet 1 tab PO DAILY RF: 0 Discontinued diphenhydramine-acetaminophen [Tylenol PM Extra Strength] 25-500 mg Tablet 1 tab PO HS PRN (Reason: Itching) RF: 0 Discharge Orders: Discharge Order (Routine); Ordered 04/06/21 Ordered By: Lillian Holt Admission Data Admit Date/Time: 04/02/21 13:43 Attending Provider: Lillian Holt Admit Provider: Leighton Garcia Primary Care Provider: Gloria Lopez Other Providers: Leighton Garcia ; Nitza Edwards ; Toribio Treadwell Kathleen ; Joel Alves Other Interventions: Discharge Summary Assessment (RN) Last Done: 04/06/21 16:13
[2021-04-06] MEDS ORDERED: ENOXAPARIN INJ 40 MG/0.4 ML SYR SQ SCH (21:00)
== END 2021-04-06 16:50 | disposition home health service (06) | DRG 57 ==
LOC: 2E 22:21 → ED 22:21 → SUATTDRO 04-01 04:39 → 2E 04-01 06:21 → SUATTDRO 04-02 13:43 → 2S 04-02 18:13 → 2N 04-05 17:47
DX: R44.1 Visual hallucinations; N17.9 Acute kidney failure, unspecified; R26.2 Difficulty in walking, not elsewhere classified; R91.1 Solitary pulmonary nodule; R41.0 Disorientation, unspecified; N18.9 Chronic kidney disease, unspecified; F02.80 Dementia in other diseases classified elsewhere, unspecified severity, without behavioral disturbance, psychotic disturbance, mood disturbance, and anxiety; Z88.8 Allergy status to other drugs, medicaments and biological substances; Z79.82 Long term (current) use of aspirin; I12.9 Hypertensive chronic kidney disease with stage 1 through stage 4 chronic kidney disease, or unspecified chronic kidney disease; Z79.899 Other long term (current) drug therapy; E86.0 Dehydration; T42.8X5A Adverse effect of antiparkinsonism drugs and other central muscle-tone depressants, initial encounter; Z91.030 Bee allergy status; G20 Parkinson's disease

== ENCOUNTER 2024-12-04 07:59 | Inpatient (IN) ==
[2024-12-04] MEDS: SODIUM CHLORIDE 0.9% 500 ML IV ONE ×2 (08:36→13:21)
[2024-12-04] MEDS: cefTRIAXone SODIUM 2,000 MG/50 ML BAG IV STA (08:56)
[2024-12-04 09:02] LABS: Basophils # (auto) 0.03 K/uL (0.00-0.20); Basophils % (auto) 0.2 %; Hematocrit (blood only) 43.3 % (42.0-52.0); Hemoglobin 14.5 g/dl (14.0-18.0); Immature Granulocytes % (auto) 0.7 %; Lymphocytes # (auto) 0.65 K/uL (1.20-3.40); Lymphocytes % (auto) 4.3 %; Mean Corpuscular Hemoglobin 31.7 pg (25.0-34.0); Mean Corpuscular Hgb Conc 33.5 g/dL (32.0-36.0); Mean Corpuscular Volume 94.5 fL (80.0-100.0); Mean Platelet Volume 9.1 fL (9.4-12.4); Monocytes # (auto) 1.49 K/uL (0.11-0.59); Neutrophils # (auto) 12.68 K/uL (1.40-6.50); Neutrophils % (auto) 84.8 %; Platelet Count 182 K/uL (130-400); RDW Coefficient of Variation 13.2 % (11.5-14.5); RDW Standard Deviation 46.1 fL (36.4-46.3); Red Blood Count 4.58 M/uL (4.70-6.10); White Blood Count 14.95 K/ul (4.8-10.8)
[2024-12-04] MEDS: ACETAMINOPHEN 1,000 MG/100 ML VIAL IV STA (09:07)
--- NOTE | 2024-12-04 09:09 | XRay Report ---
SUPINE PORTABLE AP CHEST RADIOGRAPH CLINICAL HISTORY: Confusion. COMPARISON STUDY: Chest radiograph March 31, 2021. FINDINGS: Moderate cardiomegaly is noted. Mediastinal prominence is likely due to supine technique. T here is no pneumothorax or pleural effusion on supine exam. There is no consolidation. Prominence of the pulmonary vasculature may be technical or represent pulmonary vascular congestion. IMPRESSION: Cardiomegaly with pulmonary vascular congestion, possibly due to supine technique. ACT 112: Negative or not required by law. Electronically signed by: Ryan Khan M.D. 12/04/2024 9:06 AM
[2024-12-04 09:17] LABS: Albumin Globulin Ratio 1.3 (0.9-2); Albumin Level 3.4 gm/dl (3.4-5.0); BUN Creatinine Ratio 12.7 (10-20); Bilirubin,Total 1.2 mg/dl (0.2-1.0); Calcium 8.4 mg/dl (8.6-10.3); Creatinine Clr Calc Pharmacy 53.5 ml/min; Globulin 2.7 gm/dl (2.5-4.0); Magnesium 1.6 mg/dl (1.7-2.4); Phosphorus 3.1 mg/dl (2.5-4.9); Potassium 4.1 mmol/L (3.5-5.1); Total Protein 6.1 gm/dl (6.0-8.3)
--- NOTE | 2024-12-04 09:21 | Emergency Department Note ---
Impression & Plan Sepsis, Encephalopathy, Parkinsons disease, Elevated troponin, Hypomagnesemia ED Provider Note NAME: ROMAN PRATT AGE: 79 SEX: M : 1945 ARRIVES VIA: Ambulance INFORMANT: Patient ED PROVIDER(S): Roosevelt Jang MD CHIEF COMPLAINT: Confusion, agitation, fever PLAN: Disposition: Admit MEDICAL DECISION MAKING: The patient is an 79-year-old gentleman with a past medical history of Parkinson disease with associated cognitive impairment, hypertension, hyperlipidemia who presents to the emergency department via EMS for evaluation of worsening mental status from baseline where the patient was more confused and agitated. Per report the patient was in his normal recent state of health prior to this morning. Patient was noted to be febrile by EMS and was given 1gm of IV acetaminophen. On arrival to the emergency department the patient is combative and agitated and unable to answer questions appropriately. The patient is febrile to 40.1 with heart rate in the 100s and vital signs otherwise stable. The patient appears clinically dry. Exhibits masked facies. He moves all extremities equally with generalized weakness without overt focal deficits noted. EKG without overt acute ischemia with baseline LBBB, no sgarbossa criteria. CXR with interstitial prominence per my personal preliminary review/interpretation. WBC 14.9 K with neutrophilia but no left shift, nonspecific. H/H within normal limits. Platelets within normal limits. Chemistry without metabolic acidosis. Lactic acid 2.0, within normal limits. Magnesium 1.6 with IV repletion initiated. Total bilirubin 1.2 similar to prior with normal direct bilirubin. AST is markedly above upper limit of normal and LFTs otherwise unremarkable. Initial HS troponin 48.5 with delta 2-hour H troponin 40.7, stable and nonspecific. UA without convincing evidence of infection. CT abdomen pelvis demonstrates mild distal esophageal thickening suggestive of esophagitis. CTA of the chest was negative for PE but does demonstrate diffuse bronchial wall thickening and subpleural opacities which are suggestive of infection but suspicious for pneumonia given clinical context. CT of the head was negative for acute abnormalities. Patient was treated with gentle IV fluid hydration with caution with 1L NSS ordered and 30 cc/kg deferred given patient's age and risk of overload. Empiric antibiotic treatment initiated with ceftriaxone. Case was discussed with Diane Bishop, with Dr. Rol[facility] hospitalist who will evaluate the patient for admission. Triage Nursing notes reviewed and agree them. Prior/external medical records reviewed Vital Signs: reviewed Differential diagnosis: Sepsis, UTI, pneumonia, metabolic, electrolyte abnormalities, cardiac sources, intracerebral event, toxicologic, neurologic, as well as other pathologies. ER treatment provided: See below. Diagnostics interpreted by me: ECG: Sinus rhythm with occasional PVCs, 96 bpm, left bundle branch block, no Sgarbossa criteria, similar to March 2021, QTc 505 QRS 122. Cardiac Monitoring: An order for continuous cardiac monitoring was placed and demonstrated Laboratory studies: See below Imaging studies: See below Consultation(s): Case was discussed with Diane Bishop, with [facility] who will evaluate the patient for admission. HPI: The patient is an 79-year-old gentleman with a past medical history of Parkinson disease with associated cognitive impairment, hypertension, hyperlipidemia who presents to the emergency department via EMS for evaluation of worsening mental status from baseline where the patient was more confused and agitated. Per report the patient was in his normal recent state of health prior to this morning. Patient was noted to be febrile by EMS and was given 1gm of IV acetaminophen. ROS: See above HPI for pertinent positives & negatives. A total of 10 systems reviewed and were otherwise negative. VITALS:See Below PHYSICAL EXAMINATION: GENERAL: Awake, alert, chronically ill-appearing, in no distress HENT: Normocephalic, atraumatic. Oropharynx with dry mucous membranes and otherwise unremarkable. EYES: Normal conjunctiva. Sclera non-icteric. EOMI. No nystamgus. PEARRL. NECK: Supple. No nuchal rigidity. FROM. No JVD. RESPIRATORY: Clear to auscultation. CARDIAC: Tachycardic rate, normal rhythm. Extremities warm and well perfused. Pulses equal. ABDOMEN: Soft, non-distended. No tenderness to palpation. No rebound or guarding. No masses. MUSCULOSKELETAL: Chest examination reveals no tenderness. The back is symmetrical on inspection without obvious abnormality. There is no CVA tenderness to palpation. No joint edema. LOWER EXTREMITIES: Calves are equal size bilaterally and non-tender. No edema. No discoloration. NEURO: Exhibits masked facies. He moves all extremities equally with generalized weakness without overt focal deficits noted. SKIN: No rash or jaundice noted. Roosevelt Jang MD Past Med/Surg History Problem List (Updated 12/04/24 @ 20:55 by Roosevelt Jang MD) Hypomagnesemia (Acute) Elevated troponin (Acute) Parkinsons disease (Acute) Sepsis (Acute) Encephalopathy (Acute) Delirium Medical History Ambulatory dysfunction DVT prophylaxis Lung nodule Tinea cruris Acute delirium Altered mental status Hallucinations Confusion Hypertension Social History Smoking Status: Former smoker Tobacco Type: Cigarettes Second Hand Exposure: No; Do You Dip or Chew Tobacco: No; Hx Alcohol Use: Yes Alcohol type: beer Hx Substance Use: No Preferred Language: [place] Communication Ability: Impaired 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 Operator Required: No Beliefs That Will Affect Care: None marital status: Current Living Situation: Spouse Feels Safe at Home: Yes Safety Concerns: Feels Safe At This Time Assistive Devices: Glasses Allergies Allergies Allergy/AdvReac Type Severity Reaction Status Date / Time bee venom protein (honey bee) Allergy Unknown Verified 12/04/24 09:55 lisinopril AdvReac Cough Verified 12/04/24 09:55 Home Meds Home Medications Medication Instructions Recorded Confirmed carbidopa 25 mg-levodopa 100 mg 0.5 - 1 tab PO 5XD 04/01/21 12/04/24 tablet carbidopa ER 50 mg-levodopa 200 mg 1 tab PO HS 04/01/21 12/04/24 tablet,extended release losartan 50 mg tablet 25 mg PO DAILY 04/01/21 12/04/24 multivitamin 1 tab PO DAILY 04/01/21 12/04/24 istradefylline 20 mg tablet 20 mg PO QAM 12/04/24 12/04/24 (Nourianz) quetiapine 25 mg tablet 12.5 - 37.5 mg PO BID 12/04/24 12/04/24 trazodone 100 mg tablet 100 mg PO HS 12/04/24 12/04/24 Results & Data (ED) Vital Signs Vital Signs - 24 hr 12/04/24 08:09 12/04/24 08:09 12/04/24 08:09 Temperature Temperature Source Pulse Rate Pulse Rate [Apical] Pulse Rate from SpO2 Sensor Respiratory Rate Blood Pressure 134/76 134/76 134/76 Blood Pressure [Left Arm] Blood Pressure Mean 87 87 87 Blood Pressure Mean [Left Arm] Pulse Oximetry Oxygen Delivery Method Sepsis Recent Fever Within 48 Hours Sepsis New/Unexplained Change in Mental Status Sepsis Action Taken by Nursing 12/04/24 08:09 12/04/24 08:09 12/04/24 08:09 Temperature Temperature Source Pulse Rate Pulse Rate [Apical] Pulse Rate from SpO2 Sensor Respiratory Rate Blood Pressure 134/76 134/76 134/76 Blood Pressure [Left Arm] Blood Pressure Mean 87 87 87 Blood Pressure Mean [Left Arm] Pulse Oximetry Oxygen Delivery Method Sepsis Recent Fever Within 48 Hours Sepsis New/Unexplained Change in Mental Status Sepsis Action Taken by Nursing 12/04/24 08:09 12/04/24 08:15 12/04/24 08:18 Temperature 40.1 C H Temperature Source Oral Pulse Rate 108 H 107 H Pulse Rate [Apical] Pulse Rate from SpO2 Sensor 107 H Respiratory Rate 18 21 Blood Pressure 134/76 134/76 Blood Pressure [Left Arm] Blood Pressure Mean 87 95 Blood Pressure Mean [Left Arm] Pulse Oximetry 90 92 Oxygen Delivery Method Room Air Sepsis Recent Fever Within 48 Hours No Sepsis New/Unexplained Change in Mental Status N/A Sepsis Action Taken by Nursing Physician Notified 12/04/24 08:18 12/04/24 08:27 12/04/24 08:35 Temperature Temperature Source Pulse Rate 103 H 107 H Pulse Rate [Apical] Pulse Rate from SpO2 Sensor 107 H Respiratory Rate 20 Blood Pressure 107/61 Blood Pressure [Left Arm] Blood Pressure Mean 70 Blood Pressure Mean [Left Arm] Pulse Oximetry 92 Oxygen Delivery Method Sepsis Recent Fever Within 48 Hours Sepsis New/Unexplained Change in Mental Status Sepsis Action Taken by Nursing 12/04/24 08:35 12/04/24 08:35 12/04/24 08:35 Temperature Temperature Source Pulse Rate Pulse Rate [Apical] Pulse Rate from SpO2 Sensor Respiratory Rate Blood Pressure 107/61 107/61 107/61 Blood Pressure [Left Arm] Blood Pressure Mean 70 70 70 Blood Pressure Mean [Left Arm] Pulse Oximetry Oxygen Delivery Method Sepsis Recent Fever Within 48 Hours Sepsis New/Unexplained Change in Mental Status Sepsis Action Taken by Nursing 12/04/24 08:35 12/04/24 08:35 12/04/24 08:35 Temperature Temperature Source Pulse Rate Pulse Rate [Apical] Pulse Rate from SpO2 Sensor Respiratory Rate Blood Pressure 107/61 107/61 107/61 Blood Pressure [Left Arm] Blood Pressure Mean 70 70 70 Blood Pressure Mean [Left Arm] Pulse Oximetry Oxygen Delivery Method Sepsis Recent Fever Within 48 Hours Sepsis New/Unexplained Change in Mental Status Sepsis Action Taken by Nursing 12/04/24 08:35 12/04/24 08:35 12/04/24 08:35 Temperature Temperature Source Pulse Rate Pulse Rate [Apical] Pulse Rate from SpO2 Sensor Respiratory Rate Blood Pressure 107/61 107/61 107/61 Blood Pressure [Left Arm] Blood Pressure Mean 70 70 70 Blood Pressure Mean [Left Arm] Pulse Oximetry Oxygen Delivery Method Sepsis Recent Fever Within 48 Hours Sepsis New/Unexplained Change in Mental Status Sepsis Action Taken by Nursing 12/04/24 08:35 12/04/24 08:39 12/04/24 08:42 Temperature Temperature Source Pulse Rate 97 H 95 H Pulse Rate [Apical] Pulse Rate from SpO2 Sensor 94 H 92 H Respiratory Rate 20 17 Blood Pressure 107/61 Blood Pressure [Left Arm] Blood Pressure Mean 70 Blood Pressure Mean [Left Arm] Pulse Oximetry 90 88 L Oxygen Delivery Method Sepsis Recent Fever Within 48 Hours Sepsis New/Unexplained Change in Mental Status Sepsis Action Taken by Nursing 12/04/24 08:51 12/04/24 09:00 12/04/24 09:00 Temperature Temperature Source Pulse Rate 98 H Pulse Rate [Apical] Pulse Rate from SpO2 Sensor 104 H Respiratory Rate 26 H Blood Pressure 99/60 L 99/60 L Blood Pressure [Left Arm] Blood Pressure Mean 69 69 Blood Pressure Mean [Left Arm] Pulse Oximetry 88 L Oxygen Delivery Method Sepsis Recent Fever Within 48 Hours Sepsis New/Unexplained Change in Mental Status Sepsis Action Taken by Nursing 12/04/24 09:00 12/04/24 09:00 12/04/24 09:00 Temperature Temperature Source Pulse Rate Pulse Rate [Apical] Pulse Rate from SpO2 Sensor Respiratory Rate Blood Pressure 99/60 L 99/60 L 99/60 L Blood Pressure [Left Arm] Blood Pressure Mean 69 69 69 Blood Pressure Mean [Left Arm] Pulse Oximetry Oxygen Delivery Method Sepsis Recent Fever Within 48 Hours Sepsis New/Unexplained Change in Mental Status Sepsis Action Taken by Nursing 12/04/24 09:00 12/04/24 09:00 12/04/24 09:00 Temperature Temperature Source Pulse Rate Pulse Rate [Apical] Pulse Rate from SpO2 Sensor Respiratory Rate Blood Pressure 99/60 L 99/60 L 99/60 L Blood Pressure [Left Arm] Blood Pressure Mean 69 69 69 Blood Pressure Mean [Left Arm] Pulse Oximetry Oxygen Delivery Method Sepsis Recent Fever Within 48 Hours Sepsis New/Unexplained Change in Mental Status Sepsis Action Taken by Nursing 12/04/24 09:00 12/04/24 09:00 12/04/24 09:03 Temperature Temperature Source Pulse Rate Pulse Rate [Apical] Pulse Rate from SpO2 Sensor Respiratory Rate Blood Pressure 99/60 L 99/60 L Blood Pressure [Left Arm] Blood Pressure Mean 69 69 Blood Pressure Mean [Left Arm] Pulse Oximetry Oxygen Delivery Method Room Air Sepsis Recent Fever Within 48 Hours Sepsis New/Unexplained Change in Mental Status Sepsis Action Taken by Nursing 12/04/24 09:03 12/04/24 09:05 12/04/24 09:06 Temperature Temperature Source Pulse Rate 94 H Pulse Rate [Apical] 93 H Pulse Rate from SpO2 Sensor 93 H Respiratory Rate 18 21 Blood Pressure Blood Pressure [Left Arm] 99/60 L Blood Pressure Mean Blood Pressure Mean [Left Arm] 73 Pulse Oximetry 92 91 94 Oxygen Delivery Method Room Air Room Air Sepsis Recent Fever Within 48 Hours Sepsis New/Unexplained Change in Mental Status Sepsis Action Taken by Nursing 12/04/24 09:15 12/04/24 09:24 12/04/24 09:31 Temperature Temperature Source Pulse Rate 90 87 Pulse Rate [Apical] Pulse Rate from SpO2 Sensor 89 86 Respiratory Rate 22 16 Blood Pressure 114/54 L Blood Pressure [Left Arm] Blood Pressure Mean 76 Blood Pressure Mean [Left Arm] Pulse Oximetry 94 95 Oxygen Delivery Method Sepsis Recent Fever Within 48 Hours Sepsis New/Unexplained Change in Mental Status Sepsis Action Taken by Nursing 12/04/24 09:31 12/04/24 09:31 12/04/24 09:31 Temperature Temperature Source Pulse Rate Pulse Rate [Apical] Pulse Rate from SpO2 Sensor Respiratory Rate Blood Pressure 114/54 L 114/54 L 114/54 L Blood Pressure [Left Arm] Blood Pressure Mean 76 76 76 Blood Pressure Mean [Left Arm] Pulse Oximetry Oxygen Delivery Method Sepsis Recent Fever Within 48 Hours Sepsis New/Unexplained Change in Mental Status Sepsis Action Taken by Nursing 12/04/24 09:31 12/04/24 09:31 12/04/24 09:36 Temperature Temperature Source Pulse Rate 95 H Pulse Rate [Apical] Pulse Rate from SpO2 Sensor Respiratory Rate 20 Blood Pressure 114/54 L 114/54 L Blood Pressure [Left Arm] Blood Pressure Mean 76 76 Blood Pressure Mean [Left Arm] Pulse Oximetry Oxygen Delivery Method Sepsis Recent Fever Within 48 Hours Sepsis New/Unexplained Change in Mental Status Sepsis Action Taken by Nursing 12/04/24 09:45 12/04/24 09:45 12/04/24 09:57 Temperature 36.7 C Temperature Source Temporal Artery Scan Pulse Rate 91 H 92 H Pulse Rate [Apical] 95 H Pulse Rate from SpO2 Sensor 91 H Respiratory Rate 18 21 17 Blood Pressure Blood Pressure [Left Arm] 114/54 L Blood Pressure Mean Blood Pressure Mean [Left Arm] 74 Pulse Oximetry 96 93 Oxygen Delivery Method Room Air Sepsis Recent Fever Within 48 Hours Sepsis New/Unexplained Change in Mental Status Sepsis Action Taken by Nursing 12/04/24 10:01 12/04/24 10:01 12/04/24 10:01 Temperature Temperature Source Pulse Rate Pulse Rate [Apical] Pulse Rate from SpO2 Sensor Respiratory Rate Blood Pressure 114/63 114/63 114/63 Blood Pressure [Left Arm] Blood Pressure Mean 71 71 71 Blood Pressure Mean [Left Arm] Pulse Oximetry Oxygen Delivery Method Sepsis Recent Fever Within 48 Hours Sepsis New/Unexplained Change in Mental Status Sepsis Action Taken by Nursing 12/04/24 10:01 12/04/24 10:01 12/04/24 10:15 Temperature Temperature Source Pulse Rate 87 Pulse Rate [Apical] Pulse Rate from SpO2 Sensor 88 Respiratory Rate 18 Blood Pressure 114/63 114/63 Blood Pressure [Left Arm] Blood Pressure Mean 71 71 Blood Pressure Mean [Left Arm] Pulse Oximetry 93 Oxygen Delivery Method Sepsis Recent Fever Within 48 Hours Sepsis New/Unexplained Change in Mental Status Sepsis Action Taken by Nursing 12/04/24 10:21 12/04/24 10:30 12/04/24 10:30 Temperature Temperature Source Pulse Rate 85 Pulse Rate [Apical] Pulse Rate from SpO2 Sensor 84 Respiratory Rate 21 Blood Pressure 104/67 104/67 Blood Pressure [Left Arm] Blood Pressure Mean 74 74 Blood Pressure Mean [Left Arm] Pulse Oximetry 92 Oxygen Delivery Method Sepsis Recent Fever Within 48 Hours Sepsis New/Unexplained Change in Mental Status Sepsis Action Taken by Nursing 12/04/24 10:30 12/04/24 10:30 12/04/24 10:30 Temperature Temperature Source Pulse Rate Pulse Rate [Apical] Pulse Rate from SpO2 Sensor Respiratory Rate Blood Pressure 104/67 104/67 104/67 Blood Pressure [Left Arm] Blood Pressure Mean 74 74 74 Blood Pressure Mean [Left Arm] Pulse Oximetry Oxygen Delivery Method Sepsis Recent Fever Within 48 Hours Sepsis New/Unexplained Change in Mental Status Sepsis Action Taken by Nursing 12/04/24 10:30 12/04/24 10:30 12/04/24 10:30 Temperature Temperature Source Pulse Rate Pulse Rate [Apical] Pulse Rate from SpO2 Sensor Respiratory Rate Blood Pressure 104/67 104/67 104/67 Blood Pressure [Left Arm] Blood Pressure Mean 74 74 74 Blood Pressure Mean [Left Arm] Pulse Oximetry Oxygen Delivery Method Sepsis Recent Fever Within 48 Hours Sepsis New/Unexplained Change in Mental Status Sepsis Action Taken by Nursing 12/04/24 10:30 12/04/24 10:30 12/04/24 10:30 Temperature Temperature Source Pulse Rate Pulse Rate [Apical] Pulse Rate from SpO2 Sensor Respiratory Rate Blood Pressure 104/67 104/67 104/67 Blood Pressure [Left Arm] Blood Pressure Mean 74 74 74 Blood Pressure Mean [Left Arm] Pulse Oximetry Oxygen Delivery Method Sepsis Recent Fever Within 48 Hours Sepsis New/Unexplained Change in Mental Status Sepsis Action Taken by Nursing 12/04/24 10:30 12/04/24 10:30 12/04/24 10:30 Temperature Temperature Source Pulse Rate Pulse Rate [Apical] Pulse Rate from SpO2 Sensor Respiratory Rate Blood Pressure 104/67 104/67 104/67 Blood Pressure [Left Arm] Blood Pressure Mean 74 74 74 Blood Pressure Mean [Left Arm] Pulse Oximetry Oxygen Delivery Method Sepsis Recent Fever Within 48 Hours Sepsis New/Unexplained Change in Mental Status Sepsis Action Taken by Nursing 12/04/24 10:30 12/04/24 10:30 12/04/24 10:30 Temperature Temperature Source Pulse Rate 85 Pulse Rate [Apical] Pulse Rate from SpO2 Sensor 83 Respiratory Rate 22 Blood Pressure 104/67 104/67 Blood Pressure [Left Arm] Blood Pressure Mean 74 74 Blood Pressure Mean [Left Arm] Pulse Oximetry 93 Oxygen Delivery Method Sepsis Recent Fever Within 48 Hours Sepsis New/Unexplained Change in Mental Status Sepsis Action Taken by Nursing 12/04/24 10:48 12/04/24 10:54 12/04/24 10:57 Temperature Temperature Source Pulse Rate 87 84 88 Pulse Rate [Apical] Pulse Rate from SpO2 Sensor 83 84 82 Respiratory Rate 23 21 21 Blood Pressure Blood Pressure [Left Arm] Blood Pressure Mean Blood Pressure Mean [Left Arm] Pulse Oximetry 95 92 92 Oxygen Delivery Method Sepsis Recent Fever Within 48 Hours Sepsis New/Unexplained Change in Mental Status Sepsis Action Taken by Nursing 12/04/24 11:01 12/04/24 11:01 12/04/24 11:01 Temperature Temperature Source Pulse Rate Pulse Rate [Apical] Pulse Rate from SpO2 Sensor Respiratory Rate Blood Pressure 132/59 L 132/59 L 132/59 L Blood Pressure [Left Arm] Blood Pressure Mean 82 82 82 Blood Pressure Mean [Left Arm] Pulse Oximetry Oxygen Delivery Method Sepsis Recent Fever Within 48 Hours Sepsis New/Unexplained Change in Mental Status Sepsis Action Taken by Nursing 12/04/24 11:01 12/04/24 11:01 12/04/24 11:01 Temperature Temperature Source Pulse Rate Pulse Rate [Apical] Pulse Rate from SpO2 Sensor Respiratory Rate Blood Pressure 132/59 L 132/59 L 132/59 L Blood Pressure [Left Arm] Blood Pressure Mean 82 82 82 Blood Pressure Mean [Left Arm] Pulse Oximetry Oxygen Delivery Method Sepsis Recent Fever Within 48 Hours Sepsis New/Unexplained Change in Mental Status Sepsis Action Taken by Nursing 12/04/24 11:01 12/04/24 11:01 12/04/24 11:01 Temperature Temperature Source Pulse Rate Pulse Rate [Apical] Pulse Rate from SpO2 Sensor Respiratory Rate Blood Pressure 132/59 L 132/59 L 132/59 L Blood Pressure [Left Arm] Blood Pressure Mean 82 82 82 Blood Pressure Mean [Left Arm] Pulse Oximetry Oxygen Delivery Method Sepsis Recent Fever Within 48 Hours Sepsis New/Unexplained Change in Mental Status Sepsis Action Taken by Nursing 12/04/24 11:01 12/04/24 11:01 12/04/24 11:01 Temperature Temperature Source Pulse Rate Pulse Rate [Apical] Pulse Rate from SpO2 Sensor Respiratory Rate Blood Pressure 132/59 L 132/59 L 132/59 L Blood Pressure [Left Arm] Blood Pressure Mean 82 82 82 Blood Pressure Mean [Left Arm] Pulse Oximetry Oxygen Delivery Method Sepsis Recent Fever Within 48 Hours Sepsis New/Unexplained Change in Mental Status Sepsis Action Taken by Nursing 12/04/24 11:01 12/04/24 11:15 12/04/24 11:21 Temperature Temperature Source Pulse Rate 83 79 Pulse Rate [Apical] Pulse Rate from SpO2 Sensor 84 77 Respiratory Rate 18 18 Blood Pressure 132/59 L Blood Pressure [Left Arm] Blood Pressure Mean 82 Blood Pressure Mean [Left Arm] Pulse Oximetry 91 91 Oxygen Delivery Method Sepsis Recent Fever Within 48 Hours Sepsis New/Unexplained Change in Mental Status Sepsis Action Taken by Nursing 12/04/24 11:30 12/04/24 11:30 12/04/24 11:30 Temperature Temperature Source Pulse Rate 85 Pulse Rate [Apical] Pulse Rate from SpO2 Sensor 84 Respiratory Rate 22 Blood Pressure 120/65 120/65 Blood Pressure [Left Arm] Blood Pressure Mean 75 75 Blood Pressure Mean [Left Arm] Pulse Oximetry 94 Oxygen Delivery Method Sepsis Recent Fever Within 48 Hours Sepsis New/Unexplained Change in Mental Status Sepsis Action Taken by Nursing 12/04/24 11:30 12/04/24 11:30 12/04/24 11:30 Temperature Temperature Source Pulse Rate Pulse Rate [Apical] Pulse Rate from SpO2 Sensor Respiratory Rate Blood Pressure 120/65 120/65 120/65 Blood Pressure [Left Arm] Blood Pressure Mean 75 75 75 Blood Pressure Mean [Left Arm] Pulse Oximetry Oxygen Delivery Method Sepsis Recent Fever Within 48 Hours Sepsis New/Unexplained Change in Mental Status Sepsis Action Taken by Nursing 12/04/24 11:30 12/04/24 11:30 12/04/24 11:30 Temperature Temperature Source Pulse Rate Pulse Rate [Apical] Pulse Rate from SpO2 Sensor Respiratory Rate Blood Pressure 120/65 120/65 120/65 Blood Pressure [Left Arm] Blood Pressure Mean 75 75 75 Blood Pressure Mean [Left Arm] Pulse Oximetry Oxygen Delivery Method Sepsis Recent Fever Within 48 Hours Sepsis New/Unexplained Change in Mental Status Sepsis Action Taken by Nursing 12/04/24 11:30 12/04/24 11:30 12/04/24 11:34 Temperature Temperature Source Pulse Rate Pulse Rate [Apical] 86 Pulse Rate from SpO2 Sensor Respiratory Rate 18 Blood Pressure 120/65 120/65 Blood Pressure [Left Arm] 120/65 Blood Pressure Mean 75 75 Blood Pressure Mean [Left Arm] 83 Pulse Oximetry 93 Oxygen Delivery Method Sepsis Recent Fever Within 48 Hours Sepsis New/Unexplained Change in Mental Status Sepsis Action Taken by Nursing 12/04/24 12:03 12/04/24 12:12 12/04/24 12:21 Temperature Temperature Source Pulse Rate 85 92 H Pulse Rate [Apical] Pulse Rate from SpO2 Sensor 97 H 85 93 H Respiratory Rate 17 22 Blood Pressure Blood Pressure [Left Arm] Blood Pressure Mean Blood Pressure Mean [Left Arm] Pulse Oximetry 94 100 96 Oxygen Delivery Method Sepsis Recent Fever Within 48 Hours Sepsis New/Unexplained Change in Mental Status Sepsis Action Taken by Nursing 12/04/24 12:24 12/04/24 12:25 12/04/24 12:30 Temperature Temperature Source Pulse Rate 87 85 Pulse Rate [Apical] Pulse Rate from SpO2 Sensor 90 Respiratory Rate 16 Blood Pressure 116/68 Blood Pressure [Left Arm] Blood Pressure Mean 79 Blood Pressure Mean [Left Arm] Pulse Oximetry 91 Oxygen Delivery Method Sepsis Recent Fever Within 48 Hours Sepsis New/Unexplained Change in Mental Status Sepsis Action Taken by Nursing 12/04/24 12:30 12/04/24 12:30 12/04/24 12:30 Temperature Temperature Source Pulse Rate Pulse Rate [Apical] Pulse Rate from SpO2 Sensor Respiratory Rate Blood Pressure 116/68 116/68 116/68 Blood Pressure [Left Arm] Blood Pressure Mean 79 79 79 Blood Pressure Mean [Left Arm] Pulse Oximetry Oxygen Delivery Method Sepsis Recent Fever Within 48 Hours Sepsis New/Unexplained Change in Mental Status Sepsis Action Taken by Nursing 12/04/24 12:30 12/04/24 12:30 12/04/24 12:30 Temperature Temperature Source Pulse Rate Pulse Rate [Apical] Pulse Rate from SpO2 Sensor Respiratory Rate Blood Pressure 116/68 116/68 116/68 Blood Pressure [Left Arm] Blood Pressure Mean 79 79 79 Blood Pressure Mean [Left Arm] Pulse Oximetry Oxygen Delivery Method Sepsis Recent Fever Within 48 Hours Sepsis New/Unexplained Change in Mental Status Sepsis Action Taken by Nursing 12/04/24 12:30 12/04/24 12:30 12/04/24 12:33 Temperature Temperature Source Pulse Rate 85 Pulse Rate [Apical] Pulse Rate from SpO2 Sensor 85 Respiratory Rate 20 Blood Pressure 116/68 116/68 Blood Pressure [Left Arm] Blood Pressure Mean 79 79 Blood Pressure Mean [Left Arm] Pulse Oximetry 94 Oxygen Delivery Method Sepsis Recent Fever Within 48 Hours Sepsis New/Unexplained Change in Mental Status Sepsis Action Taken by Nursing 12/04/24 12:45 12/04/24 12:54 12/04/24 13:01 Temperature Temperature Source Pulse Rate 79 87 Pulse Rate [Apical] Pulse Rate from SpO2 Sensor 79 Respiratory Rate 18 22 Blood Pressure 122/70 Blood Pressure [Left Arm] Blood Pressure Mean 86 Blood Pressure Mean [Left Arm] Pulse Oximetry 97 85 L Oxygen Delivery Method Sepsis Recent Fever Within 48 Hours Sepsis New/Unexplained Change in Mental Status Sepsis Action Taken by Nursing 12/04/24 13:01 12/04/24 13:01 12/04/24 13:01 Temperature Temperature Source Pulse Rate Pulse Rate [Apical] Pulse Rate from SpO2 Sensor Respiratory Rate Blood Pressure 122/70 122/70 122/70 Blood Pressure [Left Arm] Blood Pressure Mean 86 86 86 Blood Pressure Mean [Left Arm] Pulse Oximetry Oxygen Delivery Method Sepsis Recent Fever Within 48 Hours Sepsis New/Unexplained Change in Mental Status Sepsis Action Taken by Nursing 12/04/24 13:01 12/04/24 13:18 Temperature Temperature Source Pulse Rate 82 Pulse Rate [Apical] Pulse Rate from SpO2 Sensor 93 H Respiratory Rate 19 Blood Pressure 122/70 Blood Pressure [Left Arm] Blood Pressure Mean 86 Blood Pressure Mean [Left Arm] Pulse Oximetry 85 L Oxygen Delivery Method Sepsis Recent Fever Within 48 Hours Sepsis New/Unexplained Change in Mental Status Sepsis Action Taken by Nursing Laboratory Data Attestation: I reviewed the patient's lab results. 12/04/24 08:30 12/04/24 08:30 Lab Results 12/04/24 12/04/24 Range/Units 08:30 10:33 WBC 14.95 H (4.8-10.8) K/ul RBC 4.58 L (4.70-6.10) M/uL Hgb 14.5 (14.0-18.0) g/dl Hct 43.3 (42.0-52.0) % MCV 94.5 (80.0-100.0) fL MCH 31.7 (25.0-34.0) pg MCHC 33.5 (32.0-36.0) g/dL RDW Std Deviation 46.1 (36.4-46.3) fL RDW Coeff of Celena 13.2 (11.5-14.5) % Plt Count 182 (130-400) K/uL MPV 9.1 L (9.4-12.4) fL Immature Gran % (Auto) 0.7 % Neut % (Auto) 84.8 % Lymph % (Auto) 4.3 % Rooks % (Auto) 10.0 % Eos % (Auto) 0.0 % Baso % (Auto) 0.2 % Neut # (Auto) 12.68 H (1.40-6.50) K/uL Lymph # (Auto) 0.65 L (1.20-3.40) K/uL Rooks # (Auto) 1.49 H (0.11-0.59) K/uL Eos # (Auto) 0.00 (0.00-0.50) K/uL Baso # (Auto) 0.03 (0.00-0.20) K/uL Immature Gran # (Auto) 0.10 (0.01-0.20) K/uL PT 12.0 (9.0-12.0) Seconds INR 1.1 (0.9-1.1) Sodium 137 (136-145) mmol/L Potassium 4.1 (3.5-5.1) mmol/L Chloride 102 (98-107) mmol/L Carbon Dioxide 28 (21-32) mmol/L Anion Gap 7 (3-11) BUN 16 (6-23) mg/dl Creatinine 1.26 (0.6-1.4) mg/dl Est Cr Clr Drug Dosing 53.5 ml/min eGFR 57.30 BUN/Creatinine Ratio 12.7 (10-20) Glucose 125 H (70-99(Fasting)) mg/dl Lactate 2.0 (0.4-2.0) mmol/L Calcium 8.4 L (8.6-10.3) mg/dl Phosphorus 3.1 (2.5-4.9) mg/dl Magnesium 1.6 L (1.7-2.4) mg/dl Total Bilirubin 1.2 H (0.2-1.0) mg/dl AST 48 H (13-39) U/L ALT 25 (7-52) U/L Alkaline Phosphatase 56 (34-104) U/L Troponin I High Sens 48.5 H 48.7 H (0-20) pg/ml Total Protein 6.1 (6.0-8.3) gm/dl Albumin 3.4 (3.4-5.0) gm/dl Globulin 2.7 (2.5-4.0) gm/dl Albumin/Globulin Ratio 1.3 (0.9-2) Lipase 9 L (11-82) U/L Procalcitonin 0.33 (0-0.5) ng/ml TSH 0.793 (0.300-4.500) uIu/ml Adenovirus (PCR) Not Detected (NotDetected) B. pertussis DNA (PCR) Not Detected (NotDetected) B.parapertussis DNA PCR Not Detected (NotDetected) C. pneumoniae DNA (PCR) Not Detected (NotDetected) Coronavirus OC43 (PCR) Not Detected (NotDetected) Coronavirus HKU1 (PCR) Not Detected (NotDetected) Coronavirus 229E (PCR) Not Detected (NotDetected) SARS-CoV-2 (PCR) Not Detected (NotDetected) Coronavirus NL63 (PCR) Not Detected (NotDetected) Human Metapneumovir PCR Not Detected (NotDetected) Influenza Type A (PCR) Not Detected (NotDetected) Influenza Type B (PCR) Not Detected (NotDetected) M. pneumoniae (PCR) Not Detected (NotDetected) Parainfluenza 1 (PCR) Not Detected (NotDetected) Parainfluenza 2 (PCR) Not Detected (NotDetected) Parainfluenza 3 (PCR) Not Detected (NotDetected) Parainfluenza 4 (PCR) Not Detected (NotDetected) RSV (PCR) Not Detected (NotDetected) Entero/Rhino (PCR) Not Detected (NotDetected) Administered Medications Acetaminophen (Acetaminophen 325 Mg Tab) 650 mg PO Q4H PRN PRN Reason: Pain or Fever Stop: 01/03/25 13:23 Last Admin: 12/04/24 20:08 Dose: 650 mg Documented By: ROSIE Carbidopa/Levodopa (Carbidopa/Levodopa 50/200mg Ext Rel Tab) 1 tab PO HS [facility] Stop: 01/03/25 20:59 Last Admin: 12/04/24 20:08 Dose: 1 tab Documented By: ROSIE Carbidopa/Levodopa (Carbidopa/Levodopa 25/100mg Tab) 1 tab PO [id number] [facility] Stop: 01/03/25 14:59 Last Admin: 12/04/24 18:13 Dose: 1 tab Documented By: [facility] Admin: 12/04/24 16:46 Dose: 1 tab Documented By: FRANTZ Sodium Chloride (Nss) 1,000 mls @ 80 mls/hr IV .[id number] [facility] Stop: 12/05/24 15:59 Last Admin: 12/04/24 16:05 Dose: 80 mls/hr Documented By: FRANTZ Azithromycin (Zithromax) 500 mg in 255 mls @ 127.5 mls/hr IV Q24H [facility] Stop: 12/06/24 14:59 Last Infusion: 12/04/24 18:27 Dose: Infused Documented By: Admin: 12/04/24 16:05 Dose: 127.5 mls/hr Documented By: FRANTZ Miscellaneous (Check Scopolamine Patch Placement) 1 each N/A QS JM Stop: 01/03/25 15:59 Last Admin: 12/04/24 16:10 Dose: 1 each Documented By: FRANTZ Scopolamine (Scopolamine 1 Mg/72 Hr Tdsy Patch) 1 patch TD Q72H JM Stop: 01/03/25 15:14 Last Admin: 12/04/24 16:07 Dose: 1 patch Documented By: FRANTZ Discontinued Medications Sodium Chloride (Nss) 500 mls @ 999 mls/hr IV .Q31M ONE Stop: 12/04/24 08:45 Last Infusion: 12/04/24 09:46 Dose: Infused Documented By: Admin: 12/04/24 08:36 Dose: 999 mls/hr Documented By: MATHEW Acetaminophen (Ofirmev) 1,000 mg in 100 mls @ 400 mls/hr IV NOW STA Stop: 12/04/24 08:37 Last Admin: 12/04/24 09:07 Dose: Not Given Documented By: MATHEW Ceftriaxone Sodium (Rocephin) 2,000 mg in 50 mls @ 100 mls/hr IV NOW STA Stop: 12/04/24 08:52 Last Infusion: 12/04/24 09:46 Dose: Infused Documented By: Admin: 12/04/24 08:56 Dose: 100 mls/hr Documented By: MATHEW Magnesium Sulfate/Dextrose (Magnesium Sulfate / D5w) 1 gm in 100 mls @ 100 mls/hr IV NOW STA Stop: 12/04/24 13:54 Last Infusion: 12/04/24 16:45 Dose: Infused Documented By: Admin: 12/04/24 13:21 Dose: 100 mls/hr Documented By: JO Sodium Chloride (Nss) 500 mls @ 999 mls/hr IV .Q31M ONE Stop: 12/04/24 13:41 Last Infusion: 12/04/24 16:52 Dose: Infused Documented By: Admin: 12/04/24 13:21 Dose: 999 mls/hr Documented By: JO Ioversol (Optiray 320 125ml) 120 ml IV ONCE ONE Stop: 12/04/24 12:10 Last Admin: 12/04/24 12:09 Dose: 120 ml Documented By: DANGELO Imaging Data Radiologist's Impression: Chest X-Ray 12/04/24 08:13 SUPINE PORTABLE AP CHEST RADIOGRAPH CLINICAL HISTORY: Confusion. COMPARISON STUDY: Chest radiograph March 31, 2021. FINDINGS: Moderate cardiomegaly is noted. Mediastinal prominence is likely due to supine technique. There is no pneumothorax or pleural effusion on supine exam. There is no consolidation. Prominence of the pulmonary vasculature may be technical or represent pulmonary vascular congestion. IMPRESSION: Cardiomegaly with pulmonary vascular congestion, possibly due to supine technique. ACT 112: Negative or not required by law. Electronically signed by: Ryan Khan M.D. 12/04/2024 9:06 AM Abdomen/Pelvis CT 12/04/24 11:13 CT SCAN OF THE ABDOMEN AND PELVIS WITH IV CONTRAST CLINICAL HISTORY: Confusion. Fevers. COMPARISON STUDY: CT of the abdomen and pelvis April 01, 2021. TECHNIQUE: Following the IV administration of 120 cc of Optiray 320, CT scan of the abdomen and pelvis is performed from the lung bases to the proximal femora. Images are reviewed in the axial, sagittal, and coronal planes. IV contrast was administered without complication. A dose lowering technique was utilized adhering to the principles of ALARA. FINDINGS: There is a small hiatal hernia. There is mild distal esophageal wall thickening with possible trace adjacent stranding. No pneumatosis, free air or portal venous gas is present. Liver, spleen, adrenal glands, kidneys and pancreas are unremarkable with exception of a cyst within the inferior left collecting system. There is no hydronephrosis. There is no evidence for a bowel obstruction. Small bowel loop within a right inguinal hernia is present. This does not result in a bowel obstruction. There is no lymphadenopathy. There are no fluid collections. No acute fractures within the lumbar spine, pelvis or hips are identified. This study is mildly compromised by motion artifact. IMPRESSION: 1. Small hiatal hernia with mild distal esophageal wall thickening with trace adjacent stranding. This may represent esophagitis. 2. Right inguinal hernia which contains a small bowel loop. No resultant bowel obstruction. 3. No acute process within the abdomen or pelvis. ACT 112: Negative or not required by law. Electronically signed by: Ryan Khan M.D. 12/04/2024 12:27 PM Chest CTA 12/04/24 11:13 CT ANGIOGRAM OF THE CHEST CLINICAL HISTORY: Confusion. Fevers. COMPARISON STUDY: Chest radiograph March 31, 2021. Chest radiograph performed earlier today. TECHNIQUE: Following the IV administration of 120 cc of Optiray 320, CT angiogram of the chest was performed from the upper abdomen to the thoracic inlet utilizing the pulmonary embolus protocol. Images are reviewed in the axial, sagittal, and coronal planes. 3-D MIPS images are created and assessed. IV contrast was administered without complication. A dose lowering technique was utilized adhering to the principles of ALARA. CT DOSE: 3702.58 mGy.cm FINDINGS: No pulmonary emboli are identified although subsegmental pulmonary arteries are suboptimally assessed due to respiratory motion. The heart is moderately enlarged. There is no pericardial effusion. Moderate coronary artery calcification is present. There is no thoracic aortic dissection. Prominent mediastinal and bilateral hilar lymph nodes are present. Subpleural groundglass opacities favor atelectasis. Diffuse bronchial wall thickening with mild mucus plugging is noted. A few small pulmonary nodules are noted. The largest is a 7 mm nodule along the minor fissure. Lungs are suboptimally assessed due to respiratory motion. There is no pneumothorax or pleural effusion. The abdomen and pelvis CT will be reported separately. There is a small hiatal hernia. IMPRESSION: 1. No pulmonary emboli identified although subsegmental pulmonary arteries suboptimally assessed due to respiratory motion. 2. Moderate cardiomegaly and coronary artery calcification. 3. Diffuse bronchial wall thickening. Subpleural opacities suggestive of atelectasis. No consolidation to suggest pneumonia. 4. Prominent mediastinal and bilateral hilar lymph nodes, likely benign. ACT 112: Negative or not required by law. Electronically signed by: Ryan Khan M.D. 12/04/2024 12:[address] 12/04/24 11:13 CT head/brain wo con CLINICAL HISTORY: 79 years-old Male with confusion. Acutely altered mental status TECHNIQUE: Multiple axial CT images of the head were obtained without contrast. A dose lowering technique was utilized adhering to the principles of ALARA. COMPARISON: 04/01/2021 FINDINGS: No acute intracranial hemorrhage, midline shift, intracranial mass, hydrocephalus, territorial ischemia or abnormal extra-axial collection. Involutional changes with chronic microvascular ischemic disease. Study is mildly motion degraded. The calvarium is intact. The paranasal sinuses, mastoid air cells, and middle ear cavities are clear. IMPRESSION: No acute intracranial abnormality. ACT 112: Negative or not required by law. The above report was generated using voice recognition software. It may contain grammatical, syntax or spelling errors. Electronically signed by: Benjy Jensen M.D. 12/04/2024 12:22 PM Discharge Plan Visit Data Chief Complaint: Confusion Stated Complaint: CONFUSION, AMS ED Provider: Roosevelt Jang Discharge Problem: Sepsis, Encephalopathy, Parkinsons disease, Elevated troponin, Hypomagnesemia Patient Disposition: Admitted As Inpatient Discharge Instructions Interventions: ED Discharge Assessment Last Done: 12/04/24 14:34 Discharge Problem: Sepsis Qualifiers: Sepsis type: sepsis due to unspecified organism Sepsis acute organ dysfunction status: unspecified Qualified Code(s): A41.9 - Sepsis, unspecified organism Encephalopathy Qualifiers: Encephalopathy type: unspecified encephalopathy Qualified Code(s): G93.40 - Encephalopathy, unspecified Parkinsons disease Qualifiers: Dyskinesia presence: unspecified whether dyskinesia Fluctuating manifestations: with fluctuating manifestations Qualified Code(s): G20.A2 - Parkinson's disease without dyskinesia, with fluctuations
[2024-12-04 09:23] LABS: Troponin I High Sensitivity 48.5 pg/ml (0-20)
[2024-12-04 09:27] LABS: INR 1.1 (0.9-1.1)
[2024-12-04 09:33] LABS: Thyroid Stimulating Hormone 0.793 uIu/ml (0.300-4.500)
[2024-12-04 09:44] LABS: Adenovirus PCR Not Detected (NotDetected); Bordetella parapertussis PCR Not Detected (NotDetected); Bordetella pertussis PCR Not Detected (NotDetected); Chlamydia pneumoniae PCR Not Detected (NotDetected); Coronavirus 229E PCR Not Detected (NotDetected); Coronavirus CoV-2 (COVID19)PCR Not Detected (NotDetected); Coronavirus HKU1 PCR Not Detected (NotDetected); Coronavirus NL63 PCR Not Detected (NotDetected); Coronavirus OC43PCR Not Detected (NotDetected); Human Metapneumovirus PCR Not Detected (NotDetected); Influenza A PCR Not Detected (NotDetected); Influenza B PCR Not Detected (NotDetected); Mycoplasma pneumoniae PCR Not Detected (NotDetected); Parainfluenza Virus 1 PCR Not Detected (NotDetected); Parainfluenza Virus 2 PCR Not Detected (NotDetected); Parainfluenza Virus 3 PCR Not Detected (NotDetected); Parainfluenza Virus 4 PCR Not Detected (NotDetected); Respiratory Syncytial VirusPCR Not Detected (NotDetected); Rhinovirus/Enterovirus PCR Not Detected (NotDetected)
[2024-12-04 09:45] LABS: Appearance Urine Clear (Clear); Bacteria Urine Automated None Seen (None Seen); Bilirubin Urine Negative (Negative); Blood Urine Negative (Negative); Cast Urine Automated 0-2 /lpf (0-2); Color Urine Yellow; Epithelial Cell Urine Auto 0-2 /hpf (0-2); Glucose Urine UA Negative (Negative); Ketones Urine 2+ (Negative); Leukocyte Esterase Urine Negative (Negative); Nitrite Urine Negative (Negative); Protein Urine Trace (Negative); Specific Gravity Urine 1.021 (1.000-1.030); Urobilinogen Urine Negative (Negative); WBC Urine Automated 0-5 /hpf (0-5)
--- NOTE | 2024-12-04 10:09 | Electrocardiogram Report ---
Test Reason : Blood Pressure : */* mmHG Vent. Rate : 96 BPM Atrial Rate : 96 BPM P-R Int : 144 ms QRS Dur : 122 ms QT Int : 400 ms P-R-T Axes : 68 -64 92 degrees QTcB Int : 505 ms Sinus rhythm with occasional Premature ventricular complexes Left atrial enlargement Left axis deviation Left bundle branch block Abnormal ECG When compared with ECG of 31-Mar-2021 22:36, No significant change Confirmed by Fred Long ([id number]) on 12/04/2024 10:09:32 AM Referred By: REFERRED SELF Confirmed By: Fred Long
[2024-12-04] MEDS: OPTIRAY 320 125ml IV ONE (12:09)
--- NOTE | 2024-12-04 12:23 | CT Scan Report ---
CT head/brain wo con CLINICAL HISTORY: 79 years-old Male with confusion. Acutely altered mental status TECHNIQUE: Multiple axial CT images of the head were obtained without contrast. A dose lowering tech nique was utilized adhering to the principles of ALARA. COMPARISON: 04/01/2021 FINDINGS: No acute intracranial hemorrhage, midline shift, intracranial mass, hydrocephalus, territorial ischem ia or abnormal extra-axial collection. Involutional changes with chronic microvascular ischemic disea se. Study is mildly motion degraded. The calvarium is intact. The paranasal sinuses, mastoid air cells, and middle ear cavities are clear . IMPRESSION: No acute intracranial abnormality. ACT 112: Negative or not required by law. The above report was generated using voice recognition software. It may contain grammatical, syntax o r spelling errors. Electronically signed by: Benjy Jensen M.D. 12/04/2024 12:22 PM
--- NOTE | 2024-12-04 12:23 | CT Scan Report ---
CT ANGIOGRAM OF THE CHEST CLINICAL HISTORY: Confusion. Fevers. COMPARISON STUDY: Chest radiograph March 31, 2021. Chest radiograph performed earlier today. TECHNIQUE: Following the IV administration of 120 cc of Optiray 320, CT angiogram of the chest was pe rformed from the upper abdomen to the thoracic inlet utilizing the pulmonary embolus protocol. Images are reviewed in the axial, sagittal, and coronal planes. 3-D MIPS images are created and assessed. I V contrast was administered without complication. A dose lowering technique was utilized adhering to the principles of ALARA. CT DOSE: 3702.58 mGy.cm FINDINGS: No pulmonary emboli are identified although subsegmental pulmonary arteries are suboptimall y assessed due to respiratory motion. The heart is moderately enlarged. There is no pericardial effus ion. Moderate coronary artery calcification is present. There is no thoracic aortic dissection. Promi nent mediastinal and bilateral hilar lymph nodes are present. Subpleural groundglass opacities favor atelectasis. Diffuse bronchial wall thickening with mild mucus plugging is noted. A few small pulmona ry nodules are noted. The largest is a 7 mm nodule along the minor fissure. Lungs are suboptimally as sessed due to respiratory motion. There is no pneumothorax or pleural effusion. The abdomen and pelvi s CT will be reported separately. There is a small hiatal hernia. IMPRESSION: 1. No pulmonary emboli identified although subsegmental pulmonary arteries suboptimally assessed due to respiratory motion. 2. Moderate cardiomegaly and coronary artery calcification. 3. Diffuse bronchial wall thickening. Subpleural opacities suggestive of atelectasis. No consolidatio n to suggest pneumonia. 4. Prominent mediastinal and bilateral hilar lymph nodes, likely benign. ACT 112: Negative or not required by law. Electronically signed by: Ryan Khan M.D. 12/04/2024 12:22 PM
--- NOTE | 2024-12-04 12:29 | CT Scan Report ---
CT SCAN OF THE ABDOMEN AND PELVIS WITH IV CONTRAST CLINICAL HISTORY: Confusion. Fevers. COMPARISON STUDY: CT of the abdomen and pelvis April 01, 2021. TECHNIQUE: Following the IV administration of 120 cc of Optiray 320, CT scan of the abdomen and pelv is is performed from the lung bases to the proximal femora. Images are reviewed in the axial, sagitta l, and coronal planes. IV contrast was administered without complication. A dose lowering technique w as utilized adhering to the principles of ALARA. FINDINGS: There is a small hiatal hernia. There is mild distal esophageal wall thickening with possib le trace adjacent stranding. No pneumatosis, free air or portal venous gas is present. Liver, spleen, adrenal glands, kidneys and pancreas are unremarkable with exception of a cyst within the inferior l eft collecting system. There is no hydronephrosis. There is no evidence for a bowel obstruction. Smal l bowel loop within a right inguinal hernia is present. This does not result in a bowel obstruction. There is no lymphadenopathy. There are no fluid collections. No acute fractures within the lumbar spi ne, pelvis or hips are identified. This study is mildly compromised by motion artifact. IMPRESSION: 1. Small hiatal hernia with mild distal esophageal wall thickening with trace adjacent stranding. Thi s may represent esophagitis. 2. Right inguinal hernia which contains a small bowel loop. No resultant bowel obstruction. 3. No acute process within the abdomen or pelvis. ACT 112: Negative or not required by law. Electronically signed by: Ryan Khan M.D. 12/04/2024 12:27 PM
[2024-12-04] MEDS: MAGNESIUM SULFATE / D5W 1 GM/100 ML BAG IV STA (13:21)
[2024-12-04] MEDS ORDERED: ALUMINUM/MAGNESIUM SUSP 30 ML UDC PO PRN (13:24)
[2024-12-04] MEDS ORDERED: MAGNESIUM HYDROXIDE SUSP 30 ML UDC PO PRN (13:24)
[2024-12-04] MEDS ORDERED: ONDANSETRON INJ 2 MG/ML 2 ML VIAL IV PRN (13:24)
[2024-12-04] MEDS ORDERED: POLYETHYLENE (MIRALAX) 17 GM PACK PO PRN (13:24)
--- NOTE | 2024-12-04 13:36 | History & Physical Report ---
<Statement entered by Lester Rolle, - 12/04/24 15:14> I have seen and examined the patient and have discussed the case with the advance practice provider. I have reviewed the advanced practitioner's documentation, and I agree with, and take responsibility for that plan of care. Patient seen up on the medical floor. at bedside. Patient audibly retaining secretions in the back of throat. reports that this has been ongoing for quite some time. Has tried Mucinex without much effect. Difficult for him to take the pills. She states that Nourianz dose had been increased recently and his behaviors seem to worsen with this dose increase. Not really sure it is providing him much benefit. High suspicion patient may be silently aspirating on secretions he failure and does not have evidence of aspiration with eating. Start scopolamine patch for secretions Personally reviewed chest x-ray images, right lower lobe perihilar congestion. Discussed further plan of care as outlined below I spent a total of 18 minutes coordinating, documenting, and providing care for this patient excluding time spent by another provider/QHP. Date of Service December 04, 2024 Assessment & Plan (1) Sepsis: (2) Delirium: (3) Encephalopathy: (4) Parkinsons disease: (5) Hypertension: (6) Elevated troponin: (7) Hypomagnesemia: Plan Mr. Covarrubias presented to the ED today with altered mental status along with being combative. His , Natividad, stated that he was at baseline for the most part, yesterday, went to bed as usual and slept terribly. She said that he woke up today more confused and angry, leading the to call 911. Patient has a PMH that includes: Parkinson's Disease with behavioral disturbance and HTN. Patient will be admitted for further management of his delirium in the setting of sepsis with metabolic encephalopathy likely related to a pulmonary source with continue empiric IV abx, IV fluids, holding all antipsychotic medications, hold new medication (istradefylline) initiating melatonin, and possible 1:1 if necessary. Will replace electrolytes. Sepsis: Delirium: Encephalopathy: Meets sepsis criteria for leukocytosis 14.95, fever 40.1C, and tachycardia up to 108 Lactate 2.0 UA and Biofire negative Blood cultures x2 pending Procal negative Received 1LNS in ED; will order additional IVF. No history of CHF Started on IV Rocephin in ED; continue and add Azithromycin empirically. Chest CT revealed diffuse bronchial wall thickening and subpleural opacities suggestive of atelectasis. No consolidation to suggest pneumonia. Recently started on istradefylline in October 2024; reports his symptoms worsened after this with his hallucinations; may be a contributing factor; hold Hold all antipsychotics; add Melatonin QHS PT/OT/ST, aspiration precautions. Flutter valve, incentive spirometry and Mucinex Keep NPO until more awake and passes dysphagia screen May require 1:1 if remains combative Hypomagnesemia: Serum Mg+ 1.6; replaced with 1G in ED; Trend in AM Elevated Troponin: 48.5--> 48.7; unlikely ACS, rather ischemic demand in the setting of sepsis. Trend Troponin x1 Parkinsons Disease with behavioral disturbance: Overall functional decline; at baseline patient has caregiver 3x/week. More recently, was told he was entering last phase of Parkinson disease Was recently started on istradefylline in October 2024; reports his symptoms worsened after this with his hallucinations; may be a contributing factor; hold WCB at baseline PT/OT/ST, aspiration precautions HTN: Chronic Takes losartan; continue Disposition: PCP: Dr. Lopez Code Status: DNR/DNI VTE Prophylaxis: Lovenox SQ I spent a total of 81 minutes coordinating, documenting, and providing care for this patient excluding time spent inthe performance of separately billed services or time spent by another provider/QHP. History of Present Illness Chief Complaint: altered mental status Primary Care Provider: Gloria Lopez MD Mr. Covarrubias presented to the ED today with altered mental status along with being combative. His , Natividad, stated that he was at baseline for the most part, yesterday, went to bed as usual and slept terribly. She said that he woke up today more confused and angry, leading the to call 911. Patient has a PMH that includes: Parkinson's Disease with behavioral disturbance (wheel chair bound at baseline) and HTN. Leukocytosis 14.95, Mg+ 1.6, Troponin 48.5--> 48/7; suspect related to ischemic demand. Chest CT revealed diffuse bronchial wall thickening and subpleural opacities suggestive of atelectasis. No consolidation to suggest pneumonia.CXR revealed cardiomegaly with pulmonary vascular congestion. CTAP revealed small hiatal hernia and esophagitis. Head CT was negative for acute intracranial process. Pt is lying flat on his back, intermittently with fasciculation. He does open his eyes to verbal stimuli but is unable to communicate or hold a meaningful conversation. Pt , Natividad, at bedside, states that he has caregivers 3x per week and has recently been advised that he should have 24/7 care. She said that his parkinsons is advancing, but he is able to still communicate his needs when he wants to eat or go to the bathroom. Unsure how reliable his is. Natividad reports he does not use tobacco products, drinks one beer in the evening every other day, and no recreational drugs. They do not have any children. They have had conversation in the past regarding his wishes and she would like him to be a DNR/DNI. She is ok with Bipap if needed. Patient will be admitted for further management of his delirium in the setting of sepsis with metabolic encephalopathy likely related to a pulmonary source with continue empiric IV abx, IV fluids, holding all antipsychotic medications, initiating melatonin, and possible 1:1 if necessary. Will replace electrolytes. Please see A/P for further details. Allergies Allergy/AdvReac Type Severity Reaction Status Date / Time bee venom protein (honey bee) Allergy Unknown Verified 12/04/24 09:55 lisinopril AdvReac Cough Verified 12/04/24 09:55 Home Medications Medication Instructions Recorded Confirmed Type carbidopa 25 mg-levodopa 100 mg 0.5 - 1 tab PO 5XD 04/01/21 12/04/24 History tablet carbidopa ER 50 mg-levodopa 200 mg 1 tab PO HS 04/01/21 12/04/24 History tablet,extended release losartan 50 mg tablet 25 mg PO DAILY 04/01/21 12/04/24 History multivitamin 1 tab PO DAILY 04/01/21 12/04/24 History istradefylline 20 mg tablet 20 mg PO QAM 12/04/24 12/04/24 History (Nourianz) quetiapine 25 mg tablet 12.5 - 37.5 mg PO BID 12/04/24 12/04/24 History trazodone 100 mg tablet 100 mg PO HS 12/04/24 12/04/24 History Past Med/Surg History Problem List (Updated 12/04/24 @ 15:20 by Roosevelt Jang MD) Hypomagnesemia (Acute) Elevated troponin (Acute) Parkinsons disease (Acute) Sepsis (Acute) Encephalopathy (Acute) Delirium Medical History Ambulatory dysfunction DVT prophylaxis Lung nodule Tinea cruris Acute delirium Altered mental status Hallucinations Confusion Hypertension Parkinsons disease Social History Smoking Status: Former smoker Tobacco Type: Cigarettes Second Hand Exposure: No; Do You Dip or Chew Tobacco: No; Hx Alcohol Use: Yes Alcohol type: beer Hx Substance Use: No Preferred Language: Slovak Communication Ability: Impaired 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 On RA. GI: Abdomen S/NT/ND, Ax4 bowel sounds, (-) CVA tenderness Musculoskeletal: 5/5 B/L UE strength, 5/5 B/L LE strength. No gait disturbance Skin: (-) rashes , (-) erythema. Psych: euthymic mood Results & Data Results & Data Vital Signs (Past 12 Hours) Vital Signs Temp Pulse Pulse Resp BP BP Pulse Ox 12/04/24 12:25 85 12/04/24 11:34 86 18 120/65 93 12/04/24 11:30 120/65 12/04/24 11:30 85 22 94 12/04/24 11:21 79 18 91 12/04/24 11:15 83 18 91 12/04/24 11:01 132/59 L 12/04/24 11:01 132/59 L 12/04/24 11:01 132/59 L 12/04/24 11:01 132/59 L 12/04/24 11:01 132/59 L 12/04/24 11:01 132/59 L 12/04/24 11:01 132/59 L 12/04/24 11:01 132/59 L 12/04/24 11:01 132/59 L 12/04/24 11:01 132/59 L 12/04/24 11:01 132/59 L 12/04/24 11:01 132/59 L 12/04/24 11:01 132/59 L 12/04/24 10:57 88 21 92 12/04/24 10:54 84 21 92 12/04/24 10:48 87 23 95 12/04/24 10:30 85 22 93 12/04/24 10:30 104/67 12/04/24 10:30 104/67 12/04/24 10:30 104/67 12/04/24 10:30 104/67 12/04/24 10:30 104/67 12/04/24 10:30 104/67 12/04/24 10:30 104/67 12/04/24 10:30 104/67 12/04/24 10:30 104/67 12/04/24 10:30 104/67 12/04/24 10:30 104/67 12/04/24 10:30 104/67 12/04/24 10:30 104/67 12/04/24 10:30 104/67 12/04/24 10:30 104/67 12/04/24 10:30 104/67 12/04/24 10:21 85 21 92 12/04/24 10:15 87 18 93 12/04/24 10:01 114/63 12/04/24 10:01 114/63 12/04/24 10:01 114/63 12/04/24 10:01 114/63 12/04/24 10:01 114/63 12/04/24 09:57 92 H 17 12/04/24 09:45 91 H 21 93 12/04/24 09:45 36.7 C 95 H 18 114/54 L 96 12/04/24 09:36 95 H 20 12/04/24 09:31 114/54 L 12/04/24 09:31 114/54 L 12/04/24 09:31 114/54 L 12/04/24 09:31 114/54 L 12/04/24 09:31 114/54 L 12/04/24 09:31 114/54 L 12/04/24 09:24 87 16 95 12/04/24 09:15 90 22 94 12/04/24 09:06 94 H 21 94 12/04/24 09:05 93 H 18 99/60 L 91 12/04/24 09:03 92 12/04/24 09:03 12/04/24 09:00 99/60 L 12/04/24 09:00 99/60 L 12/04/24 09:00 99/60 L 12/04/24 09:00 99/60 L 12/04/24 09:00 99/60 L 12/04/24 09:00 99/60 L 12/04/24 09:00 99/60 L 12/04/24 09:00 99/60 L 12/04/24 09:00 99/60 L 12/04/24 09:00 99/60 L 12/04/24 08:51 98 H 26 H 88 L 12/04/24 08:42 95 H 17 88 L 12/04/24 08:39 97 H 20 90 12/04/24 08:35 107/61 12/04/24 08:35 107/61 12/04/24 08:35 107/61 12/04/24 08:35 107/61 12/04/24 08:35 107/61 12/04/24 08:35 107/61 12/04/24 08:35 107/61 12/04/24 08:35 107/61 12/04/24 08:35 107/61 12/04/24 08:35 107/61 12/04/24 08:35 107/61 12/04/24 08:27 107 H 12/04/24 08:18 103 H 20 92 12/04/24 08:18 40.1 C H 107 H 21 134/76 92 12/04/24 08:15 108 H 18 90 12/04/24 08:09 134/76 12/04/24 08:09 134/76 12/04/24 08:09 134/76 12/04/24 08:09 134/76 12/04/24 08:09 134/76 12/04/24 08:09 134/76 12/04/24 08:09 134/76 O2 Del Method 12/04/24 12:25 12/04/24 11:34 12/04/24 11:30 12/04/24 11:30 12/04/24 11:21 12/04/24 11:15 12/04/24 11:01 12/04/24 11:01 12/04/24 11:01 12/04/24 11:01 12/04/24 11:01 12/04/24 11:01 12/04/24 11:01 12/04/24 11:01 12/04/24 11:01 12/04/24 11:01 12/04/24 11:01 12/04/24 11:01 12/04/24 11:01 12/04/24 10:57 12/04/24 10:54 12/04/24 10:48 12/04/24 10:30 12/04/24 10:30 12/04/24 10:30 12/04/24 10:30 12/04/24 10:30 12/04/24 10:30 12/04/24 10:30 12/04/24 10:30 12/04/24 10:30 12/04/24 10:30 12/04/24 10:30 12/04/24 10:30 12/04/24 10:30 12/04/24 10:30 12/04/24 10:30 12/04/24 10:30 12/04/24 10:30 12/04/24 10:21 12/04/24 10:15 12/04/24 10:01 12/04/24 10:01 12/04/24 10:01 12/04/24 10:01 12/04/24 10:01 12/04/24 09:57 12/04/24 09:45 12/04/24 09:45 Room Air 12/04/24 09:36 12/04/24 09:31 12/04/24 09:31 12/04/24 09:31 12/04/24 09:31 12/04/24 09:31 12/04/24 09:31 12/04/24 09:24 12/04/24 09:15 12/04/24 09:06 12/04/24 09:05 Room Air 12/04/24 09:03 Room Air 12/04/24 09:03 Room Air 12/04/24 09:00 12/04/24 09:00 12/04/24 09:00 12/04/24 09:00 12/04/24 09:00 12/04/24 09:00 12/04/24 09:00 12/04/24 09:00 12/04/24 09:00 12/04/24 09:00 12/04/24 08:51 12/04/24 08:42 12/04/24 08:39 12/04/24 08:35 12/04/24 08:35 12/04/24 08:35 12/04/24 08:35 12/04/24 08:35 12/04/24 08:35 12/04/24 08:35 12/04/24 08:35 12/04/24 08:35 12/04/24 08:35 12/04/24 08:35 12/04/24 08:27 12/04/24 08:18 12/04/24 08:18 Room Air 12/04/24 08:15 12/04/24 08:09 12/04/24 08:09 12/04/24 08:09 12/04/24 08:09 12/04/24 08:09 12/04/24 08:09 12/04/24 08:09 Laboratory Results Short CBC 12/04/24 Range/Units 08:30 WBC 14.95 H (4.8-10.8) K/ul Hgb 14.5 (14.0-18.0) g/dl Hct 43.3 (42.0-52.0) % Plt Count 182 (130-400) K/uL BMP 12/04/24 08:30 Sodium 137 Potassium 4.1 Chloride 102 Carbon Dioxide 28 BUN 16 Creatinine 1.26 Glucose 125 H Calcium 8.4 L Liver Function 12/04/24 Range/Units 08:30 Total Bilirubin 1.2 H (0.2-1.0) mg/dl AST 48 H (13-39) U/L ALT 25 (7-52) U/L Alkaline Phosphatase 56 (34-104) U/L Albumin 3.4 (3.4-5.0) gm/dl Urine 12/04/24 Range/Units Unknown Urine Color Yellow Urine Appearance Clear (Clear) Urine pH 7.0 (4.5-7.5) Ur Specific [place]crombie 1.021 (1.000-1.030) Urine Protein Trace H (Negative) Urine Glucose (UA) Negative (Negative) Diagnostic Findings Chest X-Ray 12/04/24 08:13 SUPINE PORTABLE AP CHEST RADIOGRAPH CLINICAL HISTORY: Confusion. COMPARISON STUDY: Chest radiograph March 31, 2021. FINDINGS: Moderate cardiomegaly is noted. Mediastinal prominence is likely due to supine technique. There is no pneumothorax or pleural effusion on supine exam. There is no consolidation. Prominence of the pulmonary vasculature may be technical or represent pulmonary vascular congestion. IMPRESSION: Cardiomegaly with pulmonary vascular congestion, possibly due to supine technique. ACT 112: Negative or not required by law. Electronically signed by: Ryan Khan M.D. 12/04/2024 9:06 AM Abdomen/Pelvis CT 12/04/24 11:13 CT SCAN OF THE ABDOMEN AND PELVIS WITH IV CONTRAST CLINICAL HISTORY: Confusion. Fevers. COMPARISON STUDY: CT of the abdomen and pelvis April 01, 2021. TECHNIQUE: Following the IV administration of 120 cc of Optiray 320, CT scan of the abdomen and pelvis is performed from the lung bases to the proximal femora. Images are reviewed in the axial, sagittal, and coronal planes. IV contrast was administered without complication. A dose lowering technique was utilized adhering to the principles of ALARA. FINDINGS: There is a small hiatal hernia. There is mild distal esophageal wall thickening with possible trace adjacent stranding. No pneumatosis, free air or portal venous gas is present. Liver, spleen, adrenal glands, kidneys and pancreas are unremarkable with exception of a cyst within the inferior left collecting system. There is no hydronephrosis. There is no evidence for a bowel obstruction. Small bowel loop within a right inguinal hernia is present. This does not result in a bowel obstruction. There is no lymphadenopathy. There are no fluid collections. No acute fractures within the lumbar spine, pelvis or hips are identified. This study is mildly compromised by motion artifact. IMPRESSION: 1. Small hiatal hernia with mild distal esophageal wall thickening with trace adjacent stranding. This may represent esophagitis. 2. Right inguinal hernia which contains a small bowel loop. No resultant bowel obstruction. 3. No acute process within the abdomen or pelvis. ACT 112: Negative or not required by law. Electronically signed by: Ryan Khan M.D. 12/04/2024 12:27 PM Chest CTA 12/04/24 11:13 CT ANGIOGRAM OF THE CHEST CLINICAL HISTORY: Confusion. Fevers. COMPARISON STUDY: Chest radiograph March 31, 2021. Chest radiograph performed earlier today. TECHNIQUE: Following the IV administration of 120 cc of Optiray 320, CT angiogram of the chest was performed from the upper abdomen to the thoracic inlet utilizing the pulmonary embolus protocol. Images are reviewed in the axial, sagittal, and coronal planes. 3-D MIPS images are created and assessed. IV contrast was administered without complication. A dose lowering technique was utilized adhering to the principles of ALARA. CT DOSE: 3702.58 mGy.cm FINDINGS: No pulmonary emboli are identified although subsegmental pulmonary arteries are suboptimally assessed due to respiratory motion. The heart is moderately enlarged. There is no pericardial effusion. Moderate coronary artery calcification is present. There is no thoracic aortic dissection. Prominent mediastinal and bilateral hilar lymph nodes are present. Subpleural groundglass opacities favor atelectasis. Diffuse bronchial wall thickening with mild mucus plugging is noted. A few small pulmonary nodules are noted. The largest is a 7 mm nodule along the minor fissure. Lungs are suboptimally assessed due to respiratory motion. There is no pneumothorax or pleural effusion. The abdomen and pelvis CT will be reported separately. There is a small hiatal hernia. IMPRESSION: 1. No pulmonary emboli identified although subsegmental pulmonary arteries suboptimally assessed due to respiratory motion. 2. Moderate cardiomegaly and coronary artery calcification. 3. Diffuse bronchial wall thickening. Subpleural opacities suggestive of atelectasis. No consolidation to suggest pneumonia. 4. Prominent mediastinal and bilateral hilar lymph nodes, likely benign. ACT 112: Negative or not required by law. Electronically signed by: Ryan Khan M.D. 12/04/2024 12:[address] 12/04/24 11:13 CT head/brain wo con CLINICAL HISTORY: 79 years-old Male with confusion. Acutely altered mental status TECHNIQUE: Multiple axial CT images of the head were obtained without contrast. A dose lowering technique was utilized adhering to the principles of ALARA. COMPARISON: 04/01/2021 FINDINGS: No acute intracranial hemorrhage, midline shift, intracranial mass, hydrocephalus, territorial ischemia or abnormal extra-axial collection. Involutional changes with chronic microvascular ischemic disease. Study is mildly motion degraded. The calvarium is intact. The paranasal sinuses, mastoid air cells, and middle ear cavities are clear. IMPRESSION: No acute intracranial abnormality. ACT 112: Negative or not required by law. The above report was generated using voice recognition software. It may contain grammatical, syntax or spelling errors. Electronically signed by: Benjy Jensen M.D. 12/04/2024 12:22 PM Code Status & VTE Plan Code Status Full code in the event of cardiac or respiratory arrest VTE Prophylaxis Plan VTE Prophylaxis will be ordered: Yes
--- OUTSIDE RECORDS SUMMARY | 2024-12-04 14:32 | External Medical Summary | Summary of Care ---
Author Name Unknown Organization [facility] Address [address] [place] [address] Phone [phone] Care Team Providers Care Branch Lead Name Role Phone Gloria Lopez MD Primary Care Provide r Reason for Visit * Reason Onset Date Comments Urinary Tract Infection Symptoms 10/28/2024 Encounter Details Date Type Department Care Team (Late st Contact Info) Description 10/28/2024 Telephone Family Medicine [address] [phone] Gloria Lopez MD [address] [place] [address] [place] [address] Urinary Tract Infection Symptoms Allergies Active Allergy Reactions Criticality Noted Date Comments Bee Stings 07/31/2010 Lisinopril Cough 01/09/2010 documented as of this encounter (statuses as of 10/28/2024) Medications VITAMIN C 500 MG PO TABS 0 0 04/18/2007 Active MULTIVITAMINS PO TABS 0 0 04/18/2007 Active VISION FORMULA PO TABS 0 04/18/2007 Active polyethylene glycol 3350 (MIRALAX) 255 gram powder Take 17 g by mouth as needed. Active carbamide peroxide (DEBROX) 6.5 % otic solution Fill ear canal and insert cotton plug. Remove plug after 15-30 minutes. Continue for up to 1 week 15 mL 1 06/05/2016 Active Transport Chair Use as directed 1 Each 04/21/2021 Active Losartan Potassium 50 MG Oral Tablet (Cozaar)Indicat ions:HTN, goal below 140/90 TAKE ONE-HALF TABLET BY MOUTH IN THE MORNING 45 Tablet 2 04/24/2024 Active QUEtiapine Fumarate 25 MG Oral Tablet (SEROquel)Indic ations:Hallucin ations TAKE ONE-HALF TABLET BY MOUTH IN THE MORNING AND 2 TABLET BY MOUTH AT BEDTIME (dose increase) 270 Tablet 3 06/29/2024 Active Carbidopa-Levod opa 25-100 MG Oral Tablet (Sinemet) TAKE 1 TABLET BY MOUTH 4 TIMES DAILY AT 630 AM, 1030AM, 230 PM, 630 PM; AND TAKE ONE-HALF TABLET BY MOUTH AT BEDTIME 405 Tablet 3 06/29/2024 Active Carbidopa-Levod opa ER 50-200 MG Oral Tablet Extended Release (Sinemet CR)Indications: PD (Parkinson's disease) ([facility]) TAKE 1 TABLET BY MOUTH AT BEDTIME 90 Tablet 1 07/07/2024 Active Nourianz 20 MG Oral Tablet (Istradefylline )Indications:PD (Parkinson's disease) ([facility]) TAKE 1 TABLET BY MOUTH 1 TIME DAILY. 30 Tablet 5 10/20/2024 Active traZODone HCl 50 MG Oral Tablet (Desyrel) Take 1 Tablet by mouth at bedtime. 90 Tablet 1 10/22/2024 Active documented as of this encounter (statuses as of 10/28/2024) Active Problems Problem Noted Date Diagnosed Date Dementia associated with Parkinson's disease Candidal intertrigo 02/25/2020 Parkinson's disease 11/14/2017 Low back pain radiating to left lower extremity 11/14/2017 Dyslipidemia, goal LDL below 130 04/30/2011 FAM HX-DIABETES MELLITUS 12/25/2002 HTN, goal below 140/90 07/02/2002 documented as of this encounter (statuses as of 10/28/2024) Resolved Problems Problem Noted Date Diagnosed Date Resolved Date Dyslipidemia, goal to be determined 08/18/2009 07/31/2010 Overview (08/18/2009): Per Lipid Taxonomy. Mixed dyslipidemia 03/02/2002 Overview (08/18/2009): Per Lipid Taxonomy. documented as of this encounter (statuses as of 10/28/2024) Immunizations Name Administration Dates Next Due COVID-19 mRNA, LNP-s, No Pre serve, 2-Dose Series (Moderna) 12/04/2021,06/26/2021,11/11/2020,10/14 COVID-19, MRNA-LNP, PF, 30 M CG/0.3 mL, 12 YRS AND ABOVE, IM (PFIZER-Comirnaty) 06/19/2024 Pneumococcal Conjugate Vacc, 13 Valent (Prevnar) 06/05/2016 Pneumococcal Polysaccharide PPV23 (Pneumovax) 04/19/2009 Season Influenza, Quad, PF, Adjuvanted, 65+ Yrs, IM (FLUAD) 05/20/2020 Seasonal Influenza Vac., MDV , IM, 0.5 mL (Fluzone) 07/19/2014,07/31/2010(Deferred: Patient Refused) Seasonal Influenza, High Dos e, Trivalent, PF, IM (Fluzone HD) 06/19/2024 Seasonal Influenza, PF, 6 M & above, IM , (FluLaval or Fluzone) 06/05/2019,06/05/2018 Seasonal Influenza, Quadriva lent Hd (Fluzone Hd) 05/31/2023,05/14/2022,06/12/2021 Seasonal Influenza, Quadriva lent, No Preserve, IM 05/14/2017,06/05/2016,06/03/2015 TDAP (age 10 and older)(Boostrix) 12/25/2018 TDAP, Age 7 and older, IM (Adacel) 04/19/2008 Varicella Zoster Vaccine (Adult) 03/06/2012 Zoster Vaccine Recombinant (Shingrix) 06/20/2019 ,04/01/2019 documented as of this encounter Social History Tobacco Use Types Packs/Day Years Used Date Smoking Tobacco: Never Smokeless Tobacco: Never Alcohol Use Standard Drinks/Week Comments Yes 0 (1 standard drink = 0.6 oz pur e alcohol) 1 beer a night PHQ-2 Answer Date Recorded PHQ Adult Total Score 0 12/24/2023 Sex and Gender Information Value Date Recorded Sex Assigned at Not on file Legal Sex Male 7:15 AM EST Gender Identity Not on file Sexual Orientation Not on file documented as of this encounter Miscellaneous Notes * Telephone Encounter - Agustina Viera CMA - 10/28/2024 1:10 PM EST Called and spoke with pt advised of message nd states she will come pickler helper a sterile cup for UA * Telephone Encounter - Gloria Lopez MD - 10/28/2024 12:32 PM EST Ordered urine at lab. She can drop the urine off at the lab and he doesn't have to come in. * Telephone Encounter - Agustina Viera CMA - 10/28/2024 12:07 PM EST See message * Telephone Encounter - Monserrat Bentley OSA - 10/28/2024 11:27 AM EST No Appointments Available What Visit Type is needed? Other UTI Patient declined available appointment(s)?: Yes, explain: Pts cannot take him to clinic had anappt today anc could not make it pt suspects its a UTI new medication taken and urine is dark Were other providers in the clinic offered? N/A documented in this encounter Plan of Treatment Upcoming Encounters Date Type Department Care Team (Late st Contact Info) Description 01/01/2025 3:40 PM EDT Telemedicine Neurology [address] [place] [address] [place] [address] Nitza Blood MD [address] [place] [address] 01/08/2025 9:00 AM EDT Office Visit Family [address] [phone] Gloria Lopez MD [address] [place] [address] [place] [phone] 07/30/2025 10:00 AM EST Office Visit Family Medicine [address] [place] [phone] Gloria Lopez MD [address] [place] [address] [place] [phone] Pending Results Name Type Priority Associated Diagnoses Date /Time URINALYSIS, REFLEX TO CULTURE (NOT FOR NEUTROPENIC PATIENTS) Lab Routine Dark urine 10/28/2024 3:04 PM EST Scheduled Orders Name Type Priority Associated Diagnoses Orde r Schedule URINALYSIS, REFLEX TO CULTURE (NOT FOR NEUTROPENIC PATIENTS) Lab Routine Dark urine Expected: 10/28/2024, Expires: 10/28/2025 Health Maintenance Due Date Last Done Comments Adult Wellness Visit 2009 COVID-19 Vaccine ( season) 2024 06/19/2024, 06/12/2023, 12/04/2021, Additional history exists Depression Screening 12/23/2024 12/24/2023 GFR 06/19/2025 06/19/2024, 12/02, 12/17/2022, Additional history exists Albumin/Creatinine Ratio 12/23/2026 12/24/2023 DTap/Tdap Vaccines (3 - Td or Tdap) 12/25/2028 12/25/2018, 04/19/2008 Pneumococcal Vaccine: 50+ Years Completed 06/05/2016, 04/19/2009 Zoster Vaccines Completed 06/20/2019, 03/04, 03/06/2012 Influenza Vaccine (FLU shot) Completed , 05/31/2023, 05/14/2022, Additional history exists HPV (Gardasil) Vaccine Aged Out No lo nger eligible based on patient's age to complete this topic Hepatitis B Vaccine Aged Out No longe r eligible based on patient's age to complete this topic MENINGOCOCCAL (MENACTRA/MENVEO) Aged Out No longer eligible based on patient's age to complete this topic Meningitis B Vaccine (Bexsero/Trumemba) Aged Out No longer eligible based on patient's age to complete this topic documented as of this encounter Medical Devices Not on filedocumented as of this encounter Visit Diagnoses Diagnosis Dark urine- Primary Other nonspecific finding on examination of urine documented in this encounter Care Teams Branch Lead Relationship Specialty Start Date End Date Gloria Lopez MD [address] [place] [address] [place] [phone] PCP - General Family Medicine 06/03/15 documented as of this encounter
--- OUTSIDE RECORDS SUMMARY | 2024-12-04 14:32 | External Medical Summary | Summary of Care ---
Author Name Unknown Organization [facility] Address [address] [facility] [place] [address] Phone [phone] Care Team Providers Care Medical Technologist Microbiology Name Role Phone Gloria Lopez MD Primary Care Provide r Reason for Visit * Reason Onset Date Comments Medication Pre-auth 07/01/2024 Encounter Details Date Type Department Care Team ([facility] Contact Info) Description 07/01/[address] [facility] [address] [place] [address] Nitza Blood MD [address] [place] [address] Medication Pre-auth Allergies Active Allergy Reactions Criticality Noted Date Comments Bee Stings 07/31/2010 Lisinopril Cough 01/09/2010 documented as of this encounter (statuses as of 07/01/2024) Medications Medication Sig Dispensed Refills Start Date End Date Status VITAMIN C 500 MG PO TABS 0 [...] Use as directed 1 Each 04/21/2021 Active Carbidopa-Levodopa ER 50-200 MG Oral Tablet Extended Release (Sinemet CR)Indications:PD (Parkinson's disease) ([facility]) TAKE 1 TABLET BY MOUTH AT BEDTIME 90 Tablet 3 08/28/2023 Active Losartan Potassium 50 MG Oral Tablet (Cozaar)Indications: HTN, goal below 140/90 TAKE ONE-HALF TABLET BY MOUTH IN THE MORNING 45 Tablet 2 04/24/2024 Active Nourianz 20 MG Oral Tablet (Istradefylline)Gissell cations:PD (Parkinson's disease) ([facility]) TAKE 1 TABLET BY MOUTH 1 TIME DAILY. 30 Tablet 5 04/24/2024 Active QUEtiapine Fumarate 25 MG Oral Tablet (SEROquel)Indication s:Hallucinations TAKE ONE-HALF TABLET BY MOUTH IN THE MORNING AND 2 TABLET BY MOUTH AT BEDTIME (dose increase) 270 Tablet 3 06/29/2024 Active Carbidopa-Levodopa 25-100 MG Oral Tablet (Sinemet) TAKE 1 TABLET BY MOUTH 4 TIMES DAILY AT 630 AM, 1030AM, 230 PM, 630 PM; AND TAKE ONE-HALF TABLET BY MOUTH AT BEDTIME 405 Tablet 3 06/29/2024 Active documented as of this encounter (statuses as of 07/01/2024) Active Problems Problem Noted Date Diagnosed Date Dementia associated with Parkinson's disease Candidal intertrigo 02/25/2020 Parkinson's disease 11/14/2017 Low back pain radiating to left lower extremity 11/14/2017 Dyslipidemia, goal LDL below 130 04/30/2011 FAM HX-DIABETES MELLITUS 12/25/2002 HTN, goal below 140/90 07/02/2002 documented as of this encounter (statuses as of 07/01/2024) Resolved Problems Problem Noted Date Diagnosed Date Resolved Date Dyslipidemia, goal to be determined 08/18/2009 07/31/2010 Overview: Per Lipid Taxonomy. Mixed dyslipidemia 03/02/2002 Overview: Per Lipid Taxonomy. documented as of this encounter (statuses as of 07/01/2024) Immunizations Name Administration Dates Next Due COVID-19 mRNA, LNP-s, No Pre serve, 2-Dose Series (Moderna) 12/04/2021,06/26/2021,11/11/2020,10/14 COVID-19, MRNA-LNP, 24-25, P R, 30MCG/0.3ML, IM, 12YRS AND ABOVE (Pfizer-Comirnaty) 06/19/2024 Pneumococcal Conjugate Vacc, 13 Valent (Prevnar) [...] Recorded PHQ Adult Total Score 0 12/24/2023 Utilities Answer Date Recorded Do you have trouble paying y our heating, water, or electric bill? (Adult - for ages 18 years and over) Not on file 02/18/2024 Is your family able to pay t he heat, water, or electric bill? (Household - for ages 0-17 years) Not on file 02/18/2024 Does your family have access to good internet? (Household - for ages 0-17 years) Not on file 02/18/2024 Social Connections Answer Date Recorded How often do you feel lonely or isolated from those around you? (Adult - for ages 18 years and over) Not on file 02/18/2024 Sex and Gender Information Value Date Recorded Sex Assigned at Not on file Gender Identity Not on file Sexual Orientation Not on file Job Start Date Occupation Industry Not on file Not on file Not on file documented as of this encounter Miscellaneous Notes * Telephone Encounter - Nitza Blood MD - 07/01/2024 10:27 AM EDT What do I need to do. Patient is already receiving this drug in his doing well as documented my note * Telephone Encounter - Awilda Juan MED ASSIST - 07/01/2024 8:38 AM EDT Neurology Pre-Cert Request Medication/Disease State Information: Medication: Nourianz 20 mg- take 1 tab daily Diagnosis (including ICD-10): Parkinson's Disease. Self-administered - route pre-cert request to [id number] See corresponding visit note(s) for additional supporting clinical information. Office Information: Prescriber: Nitza Blood MD documented in this encounter Plan of Treatment Upcoming Encounters Date Type Department Care Team (Late st Contact Info) Description 01/01/2025 3:40 PM EDT Telemedicine Neurology [facility] [address] [facility] [place] [address] Nitza Blood MD [address] [facility] [place] [address] 01/08/2025 9:00 AM EDT Office Visit Family Medicine [address] [place] [phone] Gloria Lopez MD [address] [place] [address] [place] [phone] 07/30/2025 10:00 AM EST Office Visit Family Medicine [address] [place] [phone] Gloria Lopez MD [address] [place] [address] [place] [phone] Health Maintenance Due Date Last Done Comments Adult Wellness Visit 2009 Depression Screening 12/23/2024 12/24/2023 GFR 06/19/2025 06/19/2024, 12/02, 12/17/2022, Additional history exists Albumin/Creatinine Ratio 12/23/2026 12/24/2023 DTap/Tdap Vaccines (3 - Td or Tdap) 12/25/2028 12/25/2018, 04/19/2008 Pneumococcal Vaccine: 65+ Years Completed 06/05/2016, 04/19/2009 Zoster Vaccines Completed 06/20/2019, 03/04, 03/06/2012 COVID-19 Vaccine Completed 06/19/2024, 07/2023, 12/04/2021, Additional history exists Influenza Vaccine (FLU shot) Completed , 05/31/2023, [...] Not on filedocumented as of this encounter Care Teams Medical Technologist Microbiology Relationship Specialty Start Date End Date Gloria Lopez MD [address] [place] [address] [place] [phone] PCP - General Family Medicine 06/03/15 documented as of this encounter
--- OUTSIDE RECORDS SUMMARY | 2024-12-04 14:32 | External Medical Summary | Summary of Care ---
Author Name Unknown Organization [facility] Address [address] [facility] [address] Phone [phone] Care Team Providers Care Agate Setter Name Role Phone Gloria Lopez MD Primary Care Provide r Reason for Visit * Reason Comments Outpatient Testing Encounter Details Date Type Department Care Team (Late st Contact Info) Description 10/28/2024 3:10 PM EST Laboratory Laboratory [address] [place] [phone] , Specimen Drop Off [address] [place] [address] Dark urine Allergies Active Allergy Reactions Criticality Noted Date [...] Extended Release (Sinemet CR)Indications: PD (Parkinson's disease) ([facility]) TAKE 1 TABLET BY MOUTH AT BEDTIME 90 Tablet 1 07/07/2024 Active Nourianz 20 MG Oral Tablet (Istradefylline )Indications:PD (Parkinson's disease) ([facility]) TAKE 1 TABLET BY MOUTH 1 [...] on file documented as of this encounter Plan of Treatment Upcoming Encounters Date Type Department Care Team (Late st Contact Info) Description 01/01/2025 3:40 PM EDT [facility] [place] [address] Nitza Blood MD [address] [facility] [place] [address] 01/08/2025 9:00 AM EDT Office Visit [address] [phone] Gloria Lopez MD [address] [place] [address] [place] [address] 07/30/2025 10:00 AM EST Office Visit [address] [phone] Gloria Lopez MD [address] [place] [address] [place] [phone] Pending Results Name Type Priority Associated Diagnoses Date /Time URINALYSIS, REFLEX TO CULTURE (NOT FOR NEUTROPENIC PATIENTS) Lab Routine Dark urine 10/28/2024 3:04 PM EST URINALYSIS, REFLEX TO CULTURE Lab Routine Dark urine 10/28/2024 3:04 PM EST Health Maintenance Due Date Last Done Comments [...] Not on filedocumented as of this encounter Procedures Procedure Name Priority Date/Time Associated Diagnosis Comments URINALYSIS, REFLEX TO CULTURE (CUP ONLY) Routine 10/28/2024 3:04 PM EST Dark urine documented in this encounter Results * URINALYSIS, REFLEX TO CULTURE (CUP ONLY) (10/28/2024 3:04 PM EST) Urinalysis, Reflex to Culture Specimen Specimen collected and received 10/28/2024 5:02 PM EST [facility] Urine Urine specimen obtained by clean catch procedure / Unknown Non-blood Collection / Unknown 10/28/2024 3:04 PM EST 10/28/2024 3:04 PM EST us Gloria Lopez MD LAB URINE ORDERABLES Final Result [facility] [address] [facility] [place] [address] documented in this encounter Visit Diagnoses Diagnosis Dark urine Other nonspecific finding on examination of urine documented in this encounter Care Teams Agate Setter Relationship Specialty Start Date End Date Gloria Lopez MD [address] [place] [address] [place] [address] PCP - General Family Medicine 06/03/15 documented as of this encounter
--- OUTSIDE RECORDS SUMMARY | 2024-12-04 14:32 | External Medical Summary | Summary of Care ---
Author Name Unknown Organization [facility] Address [address] [facility] [place] [address] Phone [phone] Care Team Providers Care Cell Tender Helper Name Role Phone Gloria Lopez MD Primary Care Provide r Reason for Visit * Reason Comments eRx-Medication Refill Encounter Details Date Type Department Care Team (Late st Contact Info) Description 10/19/[address] [facility] 200 [facility] [place] [address] [facility]y Blood [facility] [address] PD (Parkinson's disease) ([facility]) Allergies Active Allergy Reactions Criticality Noted Date Comments Bee Stings 07/31/2010 Lisinopril Cough 01/09/2010 documented as of this encounter (statuses as of 10/20/2024) Medications VITAMIN C 500 MG PO TABS 0 0 7 Active MULTIVITAMINS PO TABS 0 0 7 Active VISION FORMULA PO TABS 0 7 Active polyethylene glycol 3350 (MIRALAX) 255 gram powder Take 17 g by mouth as needed. Active carbamide peroxide (DEBROX) 6.5 % otic solution Fill ear canal and insert cotton plug. Remove plug after 15-30 minutes. Continue for up to 1 week 15 mL 1 10/04/201 6 Active Transport Chair Use as directed 1 Each 1 Active Losartan Potassium 50 MG Oral Tablet (Cozaar)Indica tions:HTN, goal below 140/90 TAKE ONE-HALF TABLET BY MOUTH IN THE MORNING 45 Tablet 2 4 Active QUEtiapine Fumarate 25 MG Oral Tablet (SEROquel)Gissell cations:Halluc inations TAKE ONE-HALF TABLET BY MOUTH IN THE MORNING AND 2 TABLET BY MOUTH AT BEDTIME (dose increase) 270 Tablet 3 4 Active Carbidopa-Levo dopa 25-100 MG Oral Tablet (Sinemet) TAKE 1 TABLET BY MOUTH 4 TIMES DAILY AT 630 AM, 1030AM, 230 PM, 630 PM; AND TAKE ONE-HALF TABLET BY MOUTH AT BEDTIME 405 Tablet 3 4 Active Carbidopa-Levo dopa ER 50-200 MG Oral Tablet Extended Release (Sinemet CR)Indications :PD (Parkinson's disease) ([facility]) TAKE 1 TABLET BY MOUTH AT BEDTIME 90 Tablet 1 4 Active Nourianz 20 MG Oral Tablet (Istradefyllin e)Indications: PD (Parkinson's disease) ([facility]) TAKE 1 TABLET BY MOUTH 1 TIME DAILY. 30 Tablet 5 5 Active Nourianz 20 MG Oral Tablet (Istradefyllin e)Indications: PD (Parkinson's disease) ([facility]) TAKE 1 TABLET BY MOUTH 1 TIME DAILY. 30 Tablet 5 4 025 Discontinued documented as of this encounter (statuses as of 10/20/2024) Active Problems Problem Noted Date Diagnosed Date Dementia associated with Parkinson's disease Candidal intertrigo 02/25/2020 Parkinson's disease 11/14/2017 Low back pain radiating to left lower extremity 11/14/2017 Dyslipidemia, goal LDL below 130 04/30/2011 FAM HX-DIABETES MELLITUS 12/25/2002 HTN, goal below 140/90 07/02/2002 documented as of this encounter (statuses as of 10/20/2024) Resolved Problems Problem Noted Date Diagnosed Date Resolved Date Dyslipidemia, goal to be determined 08/18/2009 07/31/2010 Overview (08/18/2009): Per Lipid Taxonomy. Mixed dyslipidemia 03/02/2002 9 Overview (08/18/2009): Per Lipid Taxonomy. documented as of this encounter (statuses as of 10/20/2024) Immunizations Name Administration Dates Next Due COVID-19 [...] encounter Miscellaneous Notes * Telephone Encounter - Edy Blood MD - 10/20/2024 11:06 AM ESTSigned Prescriptions: Disp Refills Nourianz 20 MG Oral Tablet (Istradefylline)30 Tab*5 Sig: TAKE 1 TABLET BY MOUTH 1 TIME DAILY. Authorizing Provider: EDY BLOOD * Telephone Encounter - Hansa Soler LPN - 10/20/2024 9:30 AM ESTPending Prescriptions: Disp Refills Nourianz 20 MG Oral Tablet [Pharmacy Med N*30 Tab*5 Sig: TAKE 1 TABLET BY MOUTH 1 TIME DAILY. * Telephone Encounter - Hansa Soler LPN - 10/20/2024 9:29 AM EST Lat OV 06/29/24 Next OV 01/01/25 Last filled 04/24/24 * Telephone Encounter - Simeon Maza - 10/19/2024 7:08 PM ESTPending Prescriptions: Disp Refills Nourianz 20 MG Oral Tablet [Pharmacy Med N*30 Tab*5 Sig: TAKE 1 TABLET BY MOUTH 1 TIME DAILY. * Telephone Encounter - Simeon Maza - 10/19/2024 7:06 PM EST Did you pend patient's preferred pharmacy and medication before forwarding?yes Pharmacy: [facility] Pending Prescriptions: Disp Refills Nourianz 20 MG Oral Tablet (Istradefyllin*30 Tab*5 Sig: TAKE 1 TABLET BY MOUTH 1 TIME DAILY. Last Visit: 06/29/2024 (in office), 12/26/2023 (telemedicine) Next Visit: 01/01/2025 If no future appointments scheduled, and last appointment is greater than a year ago, please schedule patient for a follow-up appointment Last date the medication was ordered: 04/24/2024 Is this request for a controlled substance?No Urine Drug Screen:No results found for this or any previous visit. Patient Phone Numbers Labs: Lab Results Component Value Date/Time CREAT 1.1 06/19/2024 11:35 AM CREAT 1.1 05/20/2020 09:35 AM POTASSIUM 4.3 06/19/2024 11:35 AM POTASSIUM 4.3 05/20/2020 09:35 AM TSH 2.03 05/28/2017 09:43 AM LDL 109 06/19/2024 11:35 AM LDL 126 05/20/2020 09:35 AM LDL NOT APPLICABLE 05/20/2020 09:35 AM ALT 18 06/19/2024 11:35 AM ALT 15 05/28/2017 09:43 AM documented in this encounter Plan of Treatment Upcoming Encounters Date Type Department Care Team (Late st Contact Info) Description 01/01/2025 3:40 PM EDT Telemedicine Neurology [address] [place] [address] [place] [address] Edy Blood MD 200 [facility] [place], [place] [address] 01/08/2025 9:00 AM EDT Office Visit [address] [phone] Gloria Lopez MD [address] [place] [address] [place] [phone] 07/30/2025 10:00 AM EST Office Visit [address] [phone] Gloria Lopez MD [address] [place] [address] [place] [phone] Health Maintenance Due Date Last Done Comments [...] as of this encounter Visit Diagnoses Diagnosis PD (Parkinson's disease) ([facility]) Paralysis agitans documented in this encounter Care Teams Cell Tender Helper Relationship Specialty Start Date End Date Gloria Lopez MD [address] [place] [address] [place] [phone] PCP - General Family Medicine 06/03/15 documented as of this encounter
--- OUTSIDE RECORDS SUMMARY | 2024-12-04 14:32 | External Medical Summary | Summary of Care ---
Author Name Unknown Organization [facility] Address [address] [facility] [address] Phone [phone] Care Team Providers Care Heel Reducer Name Role Phone Gloria Lopez MD Primary Care Provide r Encounter Details Date Type Department Care Team (Late st Contact Info) Description 09/24/2024 Population Health External Data Unspecified Department Allergies Active Allergy Reactions Criticality Noted Date Comments Bee Stings 07/31/2010 Lisinopril Cough 01/09/2010 documented as of this encounter (statuses as of 09/24/2024) Medications VITAMIN C 500 MG PO TABS [...] 04/24/2024 Active Nourianz 20 MG Oral Tablet (Istradefylline )Indications:PD (Parkinson's disease) (HCC) TAKE 1 TABLET BY [...] Extended Release (Sinemet CR)Indications: PD (Parkinson's disease) (HCC) TAKE 1 TABLET BY MOUTH AT BEDTIME 90 Tablet 1 07/07/2024 Active documented as of this encounter (statuses as of 09/24/2024) Active Problems Problem Noted Date Diagnosed Date Dementia associated with Parkinson's disease Candidal intertrigo 02/25/2020 Parkinson's disease 11/14/2017 Low back pain radiating to left lower extremity 11/14/2017 Dyslipidemia, goal LDL below 130 04/30/2011 FAM HX-DIABETES MELLITUS 12/25/2002 HTN, goal below 140/90 07/02/2002 documented as of this encounter (statuses as of 09/24/2024) Resolved Problems Problem Noted Date Diagnosed Date Resolved Date Dyslipidemia, goal to be determined 08/18/2009 07/31/2010 Overview (08/18/2009): Per Lipid Taxonomy. Mixed dyslipidemia 03/02/2002 9 Overview (08/18/2009): Per Lipid Taxonomy. documented as of this encounter (statuses as of 09/24/2024) Immunizations Name Administration Dates Next Due COVID-19 [...] 3:40 PM EDT Telemedicine Neurology [facility] [place] [address] [facility] [place] [address] Nitza Blood MD 200 [facility] [place] [address] 01/08/2025 9:00 AM EDT Office Visit [address] [place] [phone] Gloria Lopez MD [address] [place] [address] [place] [address] 07/30/2025 10:00 AM EST Office Visit [address] [place] [phone] Gloria Lopez MD [address] [place] [address] [place] [address] Health Maintenance Due Date Last Done Comments [...] filedocumented as of this encounter Care Teams Heel Reducer Relationship Specialty Start Date End Date Gloria Lopez MD [address] [place] [address] [place] [address] PCP - General Family Medicine 06/03/15 documented as of this encounter
--- OUTSIDE RECORDS SUMMARY | 2024-12-04 14:32 | External Medical Summary | Summary of Care ---
Author Name Unknown Organization [facility] Address [address] [facility] [place] [address] Phone [phone] Care Team Providers Care Stemmer Machine Name Role Phone Gloria Lopez MD Primary Care Provide r Reason for Visit * Reason Onset Date Comments Medication Pre-auth 07/01/2024 Encounter Details Date Type Department Care Team ([facility] Contact Info) Description 07/01/2024 Telephone Neurology [facility] 200 [facility] [place] [address] Nitza Blood MD [address] [place] [address] Medication Pre-auth Allergies Active Allergy Reactions Criticality [...] Tablet Extended Release (Sinemet CR)Indications:PD (Parkinson's disease) ([facility]) TAKE 1 TABLET BY MOUTH AT BEDTIME 90 Tablet 3 08/28/2023 Active Losartan Potassium 50 MG Oral Tablet (Cozaar)Indications: HTN, goal below 140/90 TAKE ONE-HALF TABLET BY MOUTH IN THE MORNING 45 Tablet 2 04/24/2024 Active Nourianz 20 MG Oral Tablet (Istradefylline)Gissell cations:PD (Parkinson's disease) ([facility]) TAKE 1 TABLET BY MOUTH 1 TIME [...] Disease. Self-administered - route pre-cert request to [id number] See corresponding visit note(s) for additional supporting clinical information. Office Information: Prescriber: Nitza Blood MD documented in this encounter Plan of Treatment Upcoming Encounters Date Type Department Care Team (Late st Contact Info) Description 01/01/2025 3:40 PM EDT Telemedicine Neurology [facility] 200 [facility] [place] [address] Nitza Blood MD 200 [facility] [place] [address] 01/08/2025 9:00 AM EDT Office Visit Family Medicine [address] [place] [phone] Gloria Lopez MD [address] [place] [address] [place] [address] 07/30/2025 10:00 AM EST Office Visit Family Medicine [address] [place] [phone] Gloria Lopez MD [address] [place] [address] [place] [address] Health Maintenance Due Date Last Done Comments [...] filedocumented as of this encounter Care Teams Stemmer Machine Relationship Specialty Start Date End Date Gloria Lopez MD [address] [place] [address] [place] [address] PCP - General Family Medicine 06/03/15 documented as of this encounter
--- OUTSIDE RECORDS SUMMARY | 2024-12-04 14:32 | External Medical Summary | Summary of Care ---
Author Name Unknown Organization [facility] Address [address] [facility] [address] Phone [phone] Care Team Providers Care Sugar Reprocess Operator Head Name Role Phone Gloria Lopez MD Primary Care Provide r Reason for Visit * Reason Onset Date Comments Precert Not Needed 07/01/2024 DIXIE Encounter Details Date Type Department Care Team (Late st Contact Info) Description 07/01/2024 Telephone Neurology [facility] 200 [facility] [place] [address] Nitza Blood MD [address] [place] [address] Precert Not Needed ( DIXIE ) Allergies Active Allergy Reactions Criticality Noted Date [...] Tablet Extended Release (Sinemet CR)Indications:PD (Parkinson's disease) ([facility]) TAKE 1 TABLET BY MOUTH AT BEDTIME 90 Tablet 3 08/28/2023 Active Losartan Potassium 50 MG Oral Tablet (Cozaar)Indications: HTN, goal below 140/90 TAKE ONE-HALF TABLET BY MOUTH IN THE MORNING 45 Tablet 2 04/24/2024 Active Nourianz 20 MG Oral Tablet (Istradefylline)Gissell cations:PD (Parkinson's disease) ([facility]) TAKE 1 TABLET BY MOUTH 1 TIME [...] encounter Miscellaneous Notes * Telephone Encounter - Mariella Lobo OSA - 07/01/2024 12:15 PM EDT Per Pradip PA was already approved and good from 09/02/2023 - 09/01/2024. ty * Telephone Encounter - Nitza Blood MD [...] Disease. Self-administered - route pre-cert request to [id number] See corresponding visit note(s) for additional supporting clinical information. Office Information: Prescriber: Nitza Blood MD documented in this encounter Plan of Treatment Upcoming Encounters Date Type Department Care Team (Late st Contact Info) Description 01/01/2025 3:40 PM EDT Telemedicine Neurology [facility] [place] [address] [facility] [place] [address] Nitza Blood MD 200 [facility] [place] [address] 01/08/2025 9:00 AM EDT Office Visit [address] [phone] Gloria Lopez MD [address] [place] [address] [place] [address] 07/30/2025 10:00 AM EST Office Visit [address] [phone] Gloria Lopez MD [address] [place] [address] [place] [address] Health Maintenance Due Date Last Done Comments [...] filedocumented as of this encounter Care Teams Sugar Reprocess Operator Head Relationship Specialty Start Date End Date Gloria Lopez MD [address] [place] [address] [place] [address] PCP - General Family Medicine 06/03/15 documented as of this encounter
--- OUTSIDE RECORDS SUMMARY | 2024-12-04 14:32 | External Medical Summary ---
Author Name Unknown Address Unknown Organization K01:[facility]ATORY [facility] - [address] [place] [facility] [place] [address] Laboratory Report Ordering Provider Test Date Status MONICA RIBEIRO 10/28/2024 15:04:46 Final Observation Date Value Abnormality Reference (Units ) Status Color of Urine by Auto 10/28/2024 15:04:46 Yellow Colorless, Light Yellow, Yellow, Dark Yellow Final Clarity, Urine 10/28/2024 15:04:46 Slightly Cloudy Abnormal Clear Final Glucose [Mass/volume] in Urine by Automated test strip 10/28/2024 15:04:46 Negative Negative (mg/dL) Final Bilirubin.total [Presence] in Urine by Automated test strip 10/28/2024 15:04:46 Negative Negative Final Ketones [Mass/volume] in Urine by Automated test strip 10/28/2024 15:04:46 Trace Abnormal Negative (mg/dL) Final Specific gravity, Urine 10/28/2024 15:04:46 1.027 1.003-1.030 Final Hemoglobin [Presence] in Urine by Automated test strip 10/28/2024 15:04:46 Negative Negative Final pH, Urine 10/28/2024 15:04:46 5.5 5.0-7.5 (Units) Final Protein [Mass/volume] in Urine by Automated test strip 10/28/2024 15:04:46 Negative Negative (mg/dL) Final Urobilinogen [Mass/volume] in Urine by Automated test strip 10/28/2024 15:04:46 Normal Normal (mg/dL) Final Nitrite [Presence] in Urine by Automated test strip 10/28/2024 15:04:46 Negative Negative Final Leukocyte esterase [Presence] in Urine by Automated test strip 10/28/2024 15:04:46 Negative Negative Final RBC, Urine 10/28/2024 15:04:46 0-2 0-2 (/HPF) Final WBC, Urine 10/28/2024 15:04:46 0-2 0-2 (/HPF) Final Bacteria [#/area] in Urine sediment by Microscopy high power field 10/28/2024 15:04:46 0-25 0-25 (/HPF) Final Calcium oxalate crystals [#/area] in Urine sediment by Microscopy high power field 10/28/2024 15:04:46 50+ Abnormal None (/HPF) Final CULTURE, URINE - [facility] 10/28/2024 15:04:46 Final Culture not indicated by uri nalysis results\X09\ Performing Location [facility] - [address] [facility] [address] [facility] [address]
--- OUTSIDE RECORDS SUMMARY | 2024-12-04 14:32 | External Medical Summary | Summary of Care ---
Author Name Unknown Organization [facility] Address [address] [facility] [address] Phone [phone] Care Team Providers Care Precision Optics Technician Name Role Phone Gloria Lopez MD Primary Care Provide r Reason for Visit * Reason Comments eRx-Medication Refill Encounter Details Date Type Department Care Team (Late st Contact Info) Description 07/07/2024 Refill Neurology [facility] [address] [place] [address] Edy Blood [facility] [address] [facility] [address] PD (Parkinson's disease) ([facility]) Allergies Active Allergy Reactions Criticality Noted Date Comments Bee Stings 07/31/2010 Lisinopril Cough 01/09/2010 documented as of this encounter (statuses as of 07/07/2024) Medications Medication Sig Dispensed Refills Start Date [...] Active Losartan Potassium 50 MG Oral Tablet (Cozaar)Indicati ons:HTN, goal below 140/90 TAKE ONE-HALF TABLET BY MOUTH IN THE MORNING 45 Tablet 2 04/24/2024 Active Nourianz 20 MG Oral Tablet (Istradefylline) Indications:PD (Parkinson's disease) ([facility]) TAKE 1 TABLET BY MOUTH 1 TIME DAILY. 30 Tablet 5 04/24/2024 Active QUEtiapine Fumarate 25 MG Oral Tablet (SEROquel)Indica tions:Hallucinat ions TAKE ONE-HALF TABLET BY MOUTH IN THE MORNING AND 2 TABLET BY MOUTH AT BEDTIME (dose increase) 270 Tablet 3 06/29/2024 Active Carbidopa-Levodo pa 25-100 MG Oral Tablet (Sinemet) TAKE 1 TABLET BY MOUTH 4 TIMES DAILY AT 630 AM, 1030AM, 230 PM, 630 PM; AND TAKE ONE-HALF TABLET BY MOUTH AT BEDTIME 405 Tablet 3 06/29/2024 Active Carbidopa-Levodo pa ER 50-200 MG Oral Tablet Extended Release (Sinemet CR)Indications:P D (Parkinson's disease) ([facility]) TAKE 1 TABLET BY MOUTH AT BEDTIME 90 Tablet 1 07/07/2024 Active Carbidopa-Levodo pa ER 50-200 MG Oral Tablet Extended Release (Sinemet CR)Indications:P D (Parkinson's disease) ([facility]) TAKE 1 TABLET BY MOUTH AT BEDTIME 90 Tablet 3 08/28/2023 07/07/2024 Discontinued documented as of this encounter (statuses as of 07/07/2024) Active Problems Problem Noted Date Diagnosed Date Dementia associated with Parkinson's disease Candidal intertrigo 02/25/2020 Parkinson's disease 11/14/2017 Low back pain radiating to left lower extremity 11/14/2017 Dyslipidemia, goal LDL below 130 04/30/2011 FAM HX-DIABETES MELLITUS 12/25/2002 HTN, goal below 140/90 07/02/2002 documented as of this encounter (statuses as of 07/07/2024) Resolved Problems Problem Noted Date Diagnosed Date Resolved Date Dyslipidemia, goal to be determined 08/18/2009 07/31/2010 Overview: Per Lipid Taxonomy. Mixed dyslipidemia 03/02/2002 Overview: Per Lipid Taxonomy. documented as of this encounter (statuses as of 07/07/2024) Immunizations Name Administration Dates Next Due COVID-19 [...] encounter Miscellaneous Notes * Telephone Encounter - Benjy Luz RPh - 07/07/2024 3:56 PM ESTSigned Prescriptions: Disp Refills Carbidopa-Levodopa ER 50-200 MG Oral Table*90 Tab*1 Sig: TAKE 1 TABLET BY MOUTH AT BEDTIMEAuthorizing Provider: EDY BLOOD User: BENJY LUZ----- * Telephone Encounter - Simeon Maza - 07/07/2024 2:10 PM ESTPending Prescriptions: Disp Refills Carbidopa-Levodopa ER 50-200 MG Oral Table*90 Tab*3 Sig: TAKE 1 TABLET BY MOUTH AT BEDTIME * Telephone Encounter - Simeon Maza - 07/07/2024 2:08 PM EST Did you pend patient's preferred pharmacy and medication before forwarding?yes Pharmacy: [facility] Pending Prescriptions: Disp Refills Carbidopa-Levodopa ER 50-200 MG Oral Tabl*90 Tab*3 Sig: TAKE 1 TABLET BY MOUTH AT BEDTIME Last Visit: 06/29/2024 (in office), 12/26/2023 (telemedicine) Next Visit: 01/01/2025 If no future appointments scheduled, and last appointment is greater than a year ago, please schedule patient for a follow-up appointment Last date the medication was ordered: 08/28/2023 Is this request for a controlled substance?No [...] 3:40 PM EDT Telemedicine Neurology [facility] [place] [address] [place] [address] Edy Blood MD 200 [facility] [place] [address] 01/08/2025 9:00 AM EDT Office Visit Family [address] [phone] Gloria Lopez MD [address] [place] [address] [place] [address] 07/30/2025 10:00 AM EST Office Visit Family Medicine [address] [place] [phone] Gloria Lopez MD [address] [place] [address] [place] [address] Health Maintenance Due Date Last Done Comments [...] agitans documented in this encounter Care Teams Precision Optics Technician Relationship Specialty Start Date End Date Gloria Lopez MD [address] [place] [address] [place] [address] PCP - General Family Medicine 06/03/15 documented as of this encounter
--- OUTSIDE RECORDS SUMMARY | 2024-12-04 14:33 | External Medical Summary ---
Author Name Unknown Address Unknown Organization K01:[facility] - [address] [facility] [place] [address] Laboratory Report Ordering Provider Test Date Status MONICA RIBEIRO 06/19/2024 11:35:03 Final Observation Date Value Abnormality Reference (Units ) Status SYNC LEUKOCYTES IN BLOOD BY AUTOMATED COUNT 06/19/2024 11:35:03 9.99 4.00-10.80 (K/uL) Final Segs 06/19/2024 11:35:03 76.8 Above high normal 40.0-75.0 (%) Final Lymphs % 06/19/2024 11:35:03 11.6 Below low normal 18.0-42.0 (%) Final Monos 06/19/2024 11:35:03 9.2 1.0-11.0 (%) Final Eosinophils 06/19/2024 11:35:03 1.0 0.0-6.0 (%) Final Basos 06/19/2024 11:35:03 0.8 0.0-2.0 (%) Final Immature Granulocyte, Percent 06/19/2024 11:35:03 0.6 0.0-2.0 (%) Final Absolute Segs 06/19/2024 11:35:03 7.67 1.80-7.70 (K/uL) Final Lymphs, absolute 06/19/2024 11:35:03 1.16 1.00-4.80 (K/ul) Final Monos, Abs 06/19/2024 11:35:03 0.92 0.00-1.10 (K/uL) Final Eos, Abs 06/19/2024 11:35:03 0.10 0.00-0.70 (K/uL) Final Basos, Abs 06/19/2024 11:35:03 0.08 0.00-0.20 (K/uL) Final Immature Granulocytes, Number 06/19/2024 11:35:03 0.06 0.00-0.20 (K/uL) Final Performing Location [facility] [place] [address] [place] [address]
--- OUTSIDE RECORDS SUMMARY | 2024-12-04 14:33 | External Medical Summary | Summary of Care ---
Author Name Unknown Organization [facility] Address [address] [facility] [place] [address] Phone [phone] Care Team Providers Care Drawbench Operator Name Role Phone Gloria Lopez MD Primary Care Provide r Reason for Visit * Reason Comments Outpatient Testing Encounter Details Date Type Department Care Team (Late st Contact Info) Description 06/19/2024 11:10 AM EDT Laboratory Laboratory [address] [place] [phone] [place] [address] Urinary incontinence, unspecified type; Urinary retention; Dyslipidemia, goal LDL below 130; HTN, goal below 140/90 Allergies Active Allergy Reactions Criticality Noted Date Comments Bee Stings 07/31/2010 Lisinopril Cough 01/09/2010 documented as of this encounter (statuses as of 06/19/2024) Medications Medication Sig Dispensed Refills Start Date [...] Tablet Extended Release (Sinemet CR)Indications:PD (Parkinson's disease) (HCC) TAKE 1 TABLET BY MOUTH AT BEDTIME 90 Tablet 3 08/28/2023 Active Inbrija 42 MG Inhalation Capsule (Levodopa) Inhale 1 capsule into lungs up to twice a day to treat freezing with parkinson's disease 60 Capsule 5 12/26/2023 Active QUEtiapine Fumarate 25 MG Oral Tablet (SEROquel)Indication s:Hallucinations,Par kinson's disease (HCC) TAKE ONE-HALF TABLET BY MOUTH IN THE MORNING AND 1-1/2 TABLET BY MOUTH AT BEDTIME 180 Tablet 3 02/25/2024 Active Losartan Potassium 50 MG Oral Tablet (Cozaar)Indications: HTN, goal below 140/90 TAKE ONE-HALF TABLET BY MOUTH IN THE MORNING 45 Tablet 2 04/24/2024 Active Nourianz 20 MG Oral Tablet (Istradefylline)Gissell cations:PD (Parkinson's disease) (HCC) TAKE 1 TABLET BY MOUTH 1 TIME DAILY. 30 Tablet 5 04/24/2024 Active Carbidopa-Levodopa 25-100 MG Oral Tablet (Sinemet)Indications :PD (Parkinson's disease) (HCC) TAKE 1 TABLET BY MOUTH 4 TIMES DAILY AT 630 AM, 1030AM, 230 PM, 630 PM; AND TAKE ONE-HALF TABLET BY MOUTH AT BEDTIME 405 Tablet 05/18/2024 Active documented as of this encounter (statuses as of 06/19/2024) Active Problems Problem Noted Date Diagnosed Date Dementia associated with Parkinson's disease Candidal intertrigo 02/25/2020 Parkinson's disease 11/14/2017 Low back pain radiating to left lower extremity 11/14/2017 Dyslipidemia, goal LDL below 130 04/30/2011 FAM HX-DIABETES MELLITUS 12/25/2002 HTN, goal below 140/90 07/02/2002 documented as of this encounter (statuses as of 06/19/2024) Resolved Problems Problem Noted Date Diagnosed Date Resolved Date Dyslipidemia, goal to be determined 08/18/2009 07/31/2010 Overview: Per Lipid Taxonomy. Mixed dyslipidemia 03/02/2002 9 Overview: Per Lipid Taxonomy. documented as of this encounter (statuses as of 06/19/2024) Immunizations Name Administration Dates Next Due COVID-19 [...] Care Team (Late st Contact Info) Description 06/29/2024 11:20 AM EDT Office Visit Neurology [facility] [address] [facility] [place] [address] Nitza Blood MD [address] [facility] [place] [address] 01/08/2025 9:00 AM EDT Office Visit [address] [phone] Gloria Lopez MD [address] [place] [address] [place] [address] 07/30/2025 10:00 AM EST Office Visit Family [address] [phone] Gloria Lopez MD [address] [place] [address] [place] [address] Pending Results Name Type Priority Associated Diagnoses Date /Time URINALYSIS, REFLEX TO CULTURE (NOT FOR NEUTROPENIC PATIENTS) Lab Routine Urinary incontinence, unspecified type 06/19/2024 11:35 AM EDT PSA Lab Routine Urinary incontinence, unspecified type Urinary retention 06/19/2024 11:35 AM EDT LIPID PANEL WITH DIRECT LDL IF TG IS HIGH Lab Routine Dyslipidemia, goal LDL below 130 06/19/2024 11:35 AM EDT COMPREHENSIVE METABOLIC PANEL Lab Routine Dyslipidemia, goal LDL below 130 06/19/2024 11:35 AM EDT CBC WITH WBC DIFFERENTIAL AND ANEMIA REFLEX WORKUP Lab Routine HTN, goal below 140/90 Urinary incontinence, unspecified type 06/19/2024 11:35 AM EDT URINALYSIS, REFLEX TO CULTURE (CUP ONLY) Lab Routine Urinary incontinence, unspecified type 06/19/2024 11:35 AM EDT URINALYSIS, REFLEX TO CULTURE Lab Routine Urinary incontinence, unspecified type 06/19/2024 11:35 AM EDT ANEMIA CBC Lab Routine HTN, goal below 140/90 Urinary incontinence, unspecified type 06/19/2024 11:35 AM EDT DIFFERENTIAL, AUTOMATED Lab Routine HTN, goal below 140/90 Urinary incontinence, unspecified type 06/19/2024 11:35 AM EDT ANEMIA REFLEX CHEMISTRY HOLD Lab Routine HTN, goal below 140/90 Urinary incontinence, unspecified type 06/19/2024 11:35 AM EDT Health Maintenance Due Date Last Done Comments Adult Wellness Visit 2009 Depression Screening 12/23/2024 12/24/2023 GFR 12/23/2024 12/24/2023, 12/01, 02/06/2022, Additional history exists Albumin/Creatinine Ratio 12/23/2026 12/24/2023 [...] as of this encounter Visit Diagnoses Diagnosis Urinary incontinence, unspecified type Urinary retention Retention of urine, unspecified Dyslipidemia, goal LDL below 130 Other and unspecified hyperlipidemia HTN, goal below 140/90 Unspecified essential hypertension documented in this encounter Care Teams Drawbench Operator Relationship Specialty Start Date End Date Gloria Lopez MD [address] [place] [address] [place] [phone] PCP - General Family Medicine 06/03/15 documented as of this encounter
--- OUTSIDE RECORDS SUMMARY | 2024-12-04 14:33 | External Medical Summary ---
Author Name Unknown Address Unknown Organization K01:[facility] [address] [facility] [place] [address] Laboratory Report Ordering Provider Test Date Status MONICA RIBEIRO 06/19/2024 11:35:03 Final Observation Date Value Abnormality Reference (Units ) Status Color of Urine by Auto 06/19/2024 11:35:03 Yellow Colorless, Light Yellow, Yellow, Dark Yellow Final Clarity, Urine 06/19/2024 11:35:03 Clear Clear Final Glucose [Mass/volume] in Urine by Automated test strip 06/19/2024 11:35:03 Negative Negative (mg/dL) Final Bilirubin.total [Presence] in Urine by Automated test strip 06/19/2024 11:35:03 Negative Negative Final Ketones [Mass/volume] in Urine by Automated test strip 06/19/2024 11:35:03 Negative Negative (mg/dL) Final Specific gravity, Urine 06/19/2024 11:35:03 1.022 1.003-1.030 Final Hemoglobin [Presence] in Urine by Automated test strip 06/19/2024 11:35:03 Negative Negative Final pH, Urine 06/19/2024 11:35:03 7.0 5.0-7.5 (Units) Final Protein [Mass/volume] in Urine by Automated test strip 06/19/2024 11:35:03 Trace Abnormal Negative (mg/dL) Final Urobilinogen [Mass/volume] in Urine by Automated test strip 06/19/2024 11:35:03 Normal Normal (mg/dL) Final Nitrite [Presence] in Urine by Automated test strip 06/19/2024 11:35:03 Negative Negative Final Leukocyte esterase [Presence] in Urine by Automated test strip 06/19/2024 11:35:03 Negative Negative Final RBC, Urine 06/19/2024 11:35:03 0-2 0-2 (/HPF) Final WBC, Urine 06/19/2024 11:35:03 0-2 0-2 (/HPF) Final Bacteria [#/area] in Urine sediment by Microscopy high power field 06/19/2024 11:35:03 0-25 0-25 (/HPF) Final CULTURE, URINE - [facility] 06/19/2024 11:35:03 Final Culture not indicated by uri nalysis results\X09\ Performing Location LABORATORY [place] [address] [address] [facility] [address]
--- OUTSIDE RECORDS SUMMARY | 2024-12-04 14:33 | External Medical Summary ---
Author Name Unknown Address Unknown Organization K01:LABORATORY [facility] [place] - [address] [facility] [place] [address] Laboratory Report Ordering Provider Test Date Status MONICA RIBEIRO 06/19/2024 11:35:03 Final Observation Date Value Abnormality Reference (Units ) Status BUN 06/19/2024 11:35:03 16 6-20 (mg/dL) Final Creatinine 06/19/2024 11:35:03 1.1 0.6-1.2 (mg/dL) Final Glomerular filtration rate/1.73 sq M.predicted [Volume Rate/Area] in Serum, Plasma or Blood by Creatinine-based formula (CKD-EPI) 06/19/2024 11:35:03 69 >=60 (mL/min) Final eGFR is calculated based on the CKD-EPI 2020 equation. Sodium 06/19/2024 11:35:03 139 135-146 (m mol/L) Final Potassium 06/19/2024 11:35:03 4.3 3.5-5.1 (m mol/L) Final Cl 06/19/2024 11:35:03 104 98-107 (mm ol/L) Final CO2 06/19/2024 11:35:03 24 22-32 (mmo l/L) Final Anion gap 06/19/2024 11:35:03 11 7-15 (mmol /L) Final Glucose 06/19/2024 11:35:03 97 70-120 (mg /dL) Final Albumin 06/19/2024 11:35:03 4.0 3.8-5.0 (g /dL) Final AST (Aspartate aminotransferase) 06/19/2024 11:35:03 20 10-50 (U/L) Final Alk Phos 06/19/2024 11:35:03 79 35-130 (U/ L) Final Bilirubin, Total 06/19/2024 11:35:03 1.0 <=1 .2 (mg/dL) Final Calcium 06/19/2024 11:35:03 9.1 8.4-10.2 ( mg/dL) Final Protein 06/19/2024 11:35:03 6.4 6.0-8.3 (g /dL) Final ALT (Alanine aminotransferase) 06/19/2024 11:35:03 18 10-50 (U/L) Final Performing Location LABORATORY [facility] [place] - [facility] [address] [facility] [address]
--- OUTSIDE RECORDS SUMMARY | 2024-12-04 14:33 | External Medical Summary | Summary of Care ---
Author Name Unknown Organization [facility] Address [address] [place] [place] [address] Phone [phone] Care Team Providers Care Gambling Broker Name Role Phone Gloria Lopez MD Primary Care Provide r Reason for Visit * Reason Onset Date Comments Medication Pre-auth 07/01/2024 Encounter Details Date Type Department Care Team ([facility] Contact Info) Description 07/01/2024 Telephone Neurology [facility] [address] [facility] [place] [address] Nitza Blood MD [address] [place] [address] Medication Pre-auth Allergies Active Allergy Reactions Criticality [...] Release (Sinemet CR)Indications:PD (Parkinson's disease) ([facility]) TAKE 1 TABLET BY MOUTH AT BEDTIME 90 Tablet 3 08/28/2023 Active Losartan Potassium 50 MG Oral Tablet (Cozaar)Indications: HTN, goal below 140/90 TAKE ONE-HALF TABLET BY MOUTH IN THE MORNING 45 Tablet 2 04/24/2024 Active Nourianz 20 MG Oral Tablet (Istradefylline)Gissell cations:PD (Parkinson's disease) ([facility]) TAKE 1 TABLET BY MOUTH 1 TIME [...] encounter Miscellaneous Notes * Telephone Encounter - Awilda Juan MED ASSIST - 07/01/2024 8:38 AM EDT Neurology Pre-Cert Request Medication/Disease State Information: Medication: Nourianz 20 mg- take 1 tab daily Diagnosis (including ICD-10): Parkinson's Disease. Self-administered - route pre-cert request to [id number] See corresponding visit note(s) for additional supporting clinical information. Office Information: Prescriber: Nitza Blood MD documented in this encounter Plan of Treatment Upcoming Encounters Date Type Department Care Team (Late st Contact Info) Description 01/01/2025 3:40 PM EDT Telemedicine Neurology [facility] [address] [facility] [place] [address] Nitza Blood MD [address] [facility] [place] [address] 01/08/2025 9:00 AM EDT Office Visit [address] [phone] Gloria Lopez MD [address] [place] [address] [place] [phone] 07/30/2025 10:00 AM EST Office Visit [address] [phone] Gloria Lopez MD [address] [place] [address] [place] [address] Health Maintenance Due Date Last Done Comments [...] filedocumented as of this encounter Care Teams Gambling Broker Relationship Specialty Start Date End Date Gloria Lopez MD [address] [place] [address] [place] [phone] PCP - General Family Medicine 06/03/15 documented as of this encounter
--- OUTSIDE RECORDS SUMMARY | 2024-12-04 14:33 | External Medical Summary | Summary of Care ---
Author Name Unknown Organization [facility] Address [address] [place] [address] Phone [phone] Care Team Providers Care Digital Media Analyst Name Role Phone Gloria Lopez MD Primary Care Provide r Reason for Visit * Reason Comments Re-Check Encounter Details Date Type Department Care Team (Latest Contact Info) Description 06/19/2024 10:20 AM EDT Office Visit Family Medicine [address] [phone] Gloria Lopez MD [address] [place] [address] [place] [address] Dementia associated with Parkinson's disease (HCC)*; Parkinson's disease, unspecified whether dyskinesia present, unspecified whether manifestations fluctuate (HCC); HTN, goal below 140/90; Dyslipidemia, goal LDL below 130; Neck pain; Pain in joint of right shoulder; Urinary incontinence, unspecified type; Urinary retention; Need for COVID-19 vaccine; Need for influenza vaccination Allergies Active Allergy Reactions Criticality Noted Date [...] Use as directed 1 Each 04/21/2021 Active Carbidopa-Levodo pa ER 50-200 MG Oral Tablet Extended Release (Sinemet CR)Indications:P D (Parkinson's disease) ([facility]) TAKE 1 TABLET BY MOUTH AT BEDTIME 90 Tablet 3 08/28/2023 Active Inbrija 42 MG Inhalation Capsule (Levodopa) Inhale 1 capsule into lungs up to twice a day to treat freezing with parkinson's disease 60 Capsule 5 12/26/2023 Active QUEtiapine Fumarate 25 MG Oral Tablet (SEROquel)Indica tions:Hallucinat ions,Parkinson's disease ([facility]) TAKE ONE-HALF TABLET BY MOUTH IN THE MORNING AND 1-1/2 TABLET BY MOUTH AT BEDTIME 180 Tablet 3 02/25/2024 Active Losartan Potassium 50 MG Oral Tablet (Cozaar)Indicati ons:HTN, goal below 140/90 TAKE ONE-HALF TABLET BY MOUTH IN THE MORNING 45 Tablet 2 04/24/2024 Active Nourianz 20 MG Oral Tablet (Istradefylline) Indications:PD (Parkinson's disease) ([facility]) TAKE 1 TABLET BY MOUTH 1 TIME DAILY. 30 Tablet 5 04/24/2024 Active Carbidopa-Levodo pa 25-100 MG Oral Tablet (Sinemet)Indicat ions:PD (Parkinson's disease) ([facility]) TAKE 1 TABLET BY MOUTH 4 TIMES DAILY AT 630 AM, 1030AM, 230 PM, 630 PM; AND TAKE ONE-HALF TABLET BY MOUTH AT BEDTIME 405 Tablet 05/18/2024 Active [facility] FISH OIL 1200 MG PO CAPS Take by mouth . Three daily 04/30/2012 06/19/2024 Discontinued documented as of this encounter (statuses [...] P R, 30MCG/0.3ML, IM, 12YRS AND ABOVE ([facility]) 06/19/2024 Pneumococcal Conjugate Vacc, 13 Valent (Prevnar) [...] on file documented as of this encounter Last Filed Vital Signs Vital Sign Reading Time Taken Comments Blood Pressure 98/62 06/19/2024 10:22 AM EDT Pulse 81 06/19/2024 10:22 AM EDT Temperature 36.1 °C (97 °F) 06/19/2024 10:22 AM EDT Respiratory Rate - - Oxygen Saturation 97% 06/19/2024 10:22 AM EDT Inhaled Oxygen Concentration - - Weight 90.7 kg (200 lb) 06/19/2024 10:22 AM EDT Height - - Body Mass Index 28.7 12/24/2023 2:16 PM EDT documented in this encounter Progress Notes * Gloria Lopez MD - 06/19/2024 10:36 AM EDT Subjective: Toriibo Covarrubias is a 78 year old male. Chief Complaint Patient presents with Re-Check HPI: Brief Clinical History Mr. Covarrubias is a 78 year old male last seen in Family Medicine [facility] on 12/24/2023 by Gloria Lopez He has a h/o the following chronic conditions indicated on the problem list: Chronic Conditions Parkinson's disease (HCC) Here with his . Has had a stiff neck and neck pain for 3-4 months now. Was taking Tylenol but quit taking it because did not want to take it too many days. Sometimes his head hurts when laying back in bed. has been putting Bengay on it, which helps some. Is having trouble with the right shoulder. Was diagnosed with torn rotator cuff years ago and neverhad surgery. Has had more trouble with ROM. Has a lot of incontinence for the last month. Does not seem to have increased frequency or a fever.Denies dysuria. Has not been able to walk much. Usually just goes from one room to another. Only falls have been when missing a chair and sitting onto the floor. is looking into getting some assistance at home or possibly considering placement. Following with neurology for Parkinson's disease with dementia. Results for orders placed or performed in visit on 12/24/23 ALBUMIN / CREATININE RATIO, URINE Result Value Ref Range Albumin, Random Urine <1.20 mg/dL Creatinine, Random Urine 172 mg/dL Albumin / Creatinine Ratio, Urine <7 <30 mg/g Creat COMPREHENSIVE METABOLIC PANEL Result Value Ref Range BUN 18 6 - 20 mg/dL CREATININE 1.1 0.6 - 1.2 mg/dL EGFR 68 >=60 mL/min SODIUM 141 135 - 146 mmol/L POTASSIUM 4.4 3.5 - 5.1 mmol/L CHLORIDE 105 98 - 107 mmol/L CO2 25 22 - 32 mmol/L ANION GAP 11 7 - 15 mmol/L GLUCOSE 105 70 - 120 mg/dL Albumin 4.0 3.8 - 5.0 g/dL AST 20 10 - 50 U/L Alkaline Phosphatase 70 35 - 130 U/L Bilirubin, Total 0.5 <=1.2 mg/dL CALCIUM 9.1 8.4 - 10.2 mg/dL Protein 6.4 6.0 - 8.3 g/dL ALT 12 10 - 50 U/L URINALYSIS, REFLEX TO CULTURE (CUP ONLY) Result Value Ref Range Urinalysis, Reflex to Culture Specimen Specimen collected and received URINALYSIS, REFLEX TO CULTURE Result Value Ref Range Color, Urine Yellow Colorless, Light Yellow, Yellow, Dark Yellow Clarity, Urine Clear Clear Glucose, Urine Negative Negative mg/dL Bilirubin, Urine Negative Negative Ketone, Urine Trace (A) Negative mg/dL Specific [place], Urine 1.026 1.003 - 1.030 Blood, Urine Negative Negative pH, Urine 6.0 5.0 - 7.5 Units Protein, Urine Trace (A) Negative mg/dL Urobilinogen, Urine Normal Normal mg/dL Nitrite, Urine Negative Negative Esterase, Urine Negative Negative RBC, Urine 0-2 0 - 2 /HPF WBC, Urine 0-2 0 - 2 /HPF Bacteria, Urine 0-25 0 - 25 /HPF Calcium Oxalate Crystal, Urine 20-29 (A) None /HPF Culture, Urine PHM: Patient Active Problem List Diagnosis HTN, goal below 140/90 FAM HX-DIABETES MELLITUS Dyslipidemia, goal LDL below 130 Parkinson's disease (HCC) Low back pain radiating to left lower extremity Candidal intertrigo Dementia associated with Parkinson's disease (HCC) Current Outpatient Medications Medication Sig Dispense Refill VITAMIN C 500 MG PO TABS 0 0 MULTIVITAMINS PO TABS 0 0 VISION FORMULA PO TABS 0 polyethylene glycol 3350 (MIRALAX) 255 gram powder Take 17 g by mouth as needed. carbamide peroxide (DEBROX) 6.5 % otic solution Fill ear canal and insert cotton plug. Remove plug after 15-30 minutes. Continue for up to 1 week 15 mL 1 Transport Chair Use as directed 1 Each 0 Carbidopa-Levodopa ER 50-200 MG Oral Tablet Extended Release (Sinemet CR) TAKE 1 TABLET BY MOUTH ATBEDTIME 90 Tablet 3 Inbrija 42 MG Inhalation Capsule (Levodopa) Inhale 1 capsule into lungs up to twice a day to treat freezing with parkinson's disease 60 Capsule 5 QUEtiapine Fumarate 25 MG Oral Tablet (SEROquel) TAKE ONE-HALF TABLET BY MOUTH IN THE MORNING AND 1-1/2 TABLET BY MOUTH AT BEDTIME 180 Tablet 3 Losartan Potassium 50 MG Oral Tablet (Cozaar) TAKE ONE-HALF TABLET BY MOUTH IN THE MORNING 45 Tablet 2 Nourianz 20 MG Oral Tablet (Istradefylline) TAKE 1 TABLET BY MOUTH 1 TIME DAILY. 30 Tablet 5 Carbidopa-Levodopa 25-100 MG Oral Tablet (Sinemet) TAKE 1 TABLET BY MOUTH 4 TIMES DAILY AT 630 AM, 1030AM, 230 PM, 630 PM; AND TAKE ONE-HALF TABLET BY MOUTH AT BEDTIME 405 Tablet 0 No current facility-administered medications for this visit. Past Medical History: Diagnosis Date HTN, goal to be determined Mixed dyslipidemia Past Surgical History: Procedure Laterality Date COLORECTAL CANCER SCREEN; NOT AT RISK 07/22/08 repeat in 10 yrs DENTAL SURGERY PROCEDURE NEC wisdom teeth extraction REPAIR INITIAL INGUINAL HERNIA REDUCIBLE AGE 5 OR MORE 05/2010 dr celestin Social History Socioeconomic History Marital status: Spouse name: Not on file Number of children: Not on file Years of education: Not on file Highest education level: Not on file Occupational History Not on file Tobacco Use Smoking status: Never Smokeless tobacco: Never Vaping Use Vaping status: Never Used Substance and Sexual Activity Alcohol use: Yes Comment: 1 beer a night Drug use: No Sexual activity: Not on file Other Topics Concern Not on file Social History Narrative Not on file Social Determinants of Health Financial Resource Strain: Not on file Food Insecurity: Not on file Transportation Needs: Not on file Social Connections: Unknown (02/18/2024) Social Connections How often do you feel lonely or isolated from those around you? (Adult - for ages 18 years and over): Not on file Housing Stability: Not on file Review of patient's allergies indicates: Allergen Reactions Bee Stings Lisinopril Cough Objective: BP 98/62 | Pulse 81 | Temp 36.1 °C (97 °F) (Tympanic) | Wt 90.7 kg (200 lb) | SpO2 97% | BMI 28.70 kg/m² | BSA 2.12 m² Physical Exam: General: alert, no distress, well nourished, well developed, and seated in a wheelchair Head: Normocephalic, No masses, lesions, tenderness or abnormalities Eye Exam: PERRLA, extraocular movements intact, conjunctiva are pink and non- injected, sclera clear Ears: External ears normal Nose: no mucosal erythema, no mucosal edema, no purulent discharge Oropharynx: no exudate, no erythema, lips, buccal mucosa, and tongue normal, and mucous membranes are moist Neck: supple, no adenopathy, no bruits Heart: regular rate & rhythm, no murmur, and no gallops Lungs: chest symmetric with normal AP diameter, no chest deformities noted, no chest wall tenderness, lungs clear to auscultation Extremities: no edema, no clubbing, no cyanosis. Limited ROM of right shoulder with some pain/stiffness with Mendoza and Near signs Neuro Exam: alert, cooperative with masked facies, tremors of upper extremities, rigidity and bradykinesia. 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 Following with neurology. Continue Sinemet, Nourianz, Inbrija, and Seroquel. Patient's mobility is getting much worse and recommended look into getting caregivers. She is also considering LTC in future. Parkinson's disease, unspecified whether dyskinesia present, unspecified whether manifestations fluctuate (HCC)--as above. Worsening mobility. HTN, goal below 140/90--controlled with losartan 25 mg daily--dose has been reduced. - CBC WITH WBC DIFFERENTIAL AND ANEMIA REFLEX WORKUP; Future; Expected date: 06/19/2024 Dyslipidemia, goal LDL below 130--check labs. - LIPID PANEL WITH DIRECT LDL IF TG IS HIGH; Future; Expected date: 06/19/2024 - COMPREHENSIVE METABOLIC PANEL; Future; Expected date: 06/19/2024 Neck pain--check x-ray. Recommend Salonpas. Not able to travel to [place] for injections. - XR C SPINE 2-3 VIEWS Pain in joint of right shoulder--recommend trial of Voltaren gel. Check x-rays. Declines orthopedics referral for injections. - XR SHOULDER, 2 OR MORE VIEWS Urinary incontinence, unspecified type--r/o infection. Check PSA. Likely related to dementia/Parkinson's but could have BPH and retention. She denies bladder ultrasound at this time or referral to urology. - URINALYSIS, REFLEX TO CULTURE (NOT FOR NEUTROPENIC PATIENTS); Future; Expected date: 06/19/2024 - PSA; Future; Expected date: 06/19/2024 - CBC WITH WBC DIFFERENTIAL AND ANEMIA REFLEX WORKUP; Future; Expected date: 06/19/2024 Urinary retention--as above - PSA; Future; Expected date: 06/19/2024 Need for COVID-19 vaccine - COVID-19, MRNA-LNP, PF, 24-25, 30MCG/0.3ML, IM, 12YRS AND ABOVE ([facility]ER) Need for influenza vaccination - INFLUENZA VAC., TRIVALENT, HD, PF, 65 AND ABOVE, 0.5 ML IM (FLUZONE HD) PLAN: Continue present medication(s): Study(ies) ordered: X-ray of cervical spine and right shoulder Immunization(s) ordered: COVID booster and influenza vaccine given today Schedule labs: CBC w/diff, CMP, lipid panel, PSA, and UA with reflex to culture Patient education: Discussed with his pain. Recommend trial of Voltaren gel to shoulder. She declines referral to orthopedics due to difficulty getting him in and out of the house. She has a very hard time getting him into a car. Discussed getting caregivers in the home versus placement. Checkurine to r/o UTI due to incontinence but suspect related to worsening dementia with Parkinson's with impaired mobility. Check PSA. Declines urology referral at this time. Would not recommend anticholingeric medication due to risk of urinary retention, worsening confusion, and falls. Follow up: in 6 month(s). Gloria Lopez MD documented in this encounter Nursing Notes * Valerie Orellana LPN - 06/19/2024 10:22 AM EDT 6 month recheck Stiff neck And issues with right shoulder ROM Bladder issues - incontinence documented in this encounter Plan of Treatment Upcoming Encounters Date Type Department Care Team (Late st Contact Info) Description 06/29/2024 11:20 AM EDT Office Visit Neurology [facility] [place] [address] [facility] [place] [address] Nitza Blood MD [address] [facility] [place] [id number] 01/08/2025 9:00 AM EDT Office Visit [address] [phone] Gloria Lopez MD [address] [place] [address] J[place] [address] 07/30/2025 10:00 AM EST Office Visit [address] [phone] Gloria Lopez MD [address] [place] [address] [place] [phone] Pending Results Name Type Priority Associated Diagnoses Date /Time URINALYSIS, REFLEX TO CULTURE (NOT FOR NEUTROPENIC PATIENTS) Lab Routine Urinary incontinence, unspecified type 06/19/2024 11:35 AM EDT PSA Lab Routine Urinary incontinence, unspecified type Urinary retention 06/19/2024 11:35 AM EDT XR C SPINE 2-3 VIEWS Medical Imaging Routine Neck pain 06/19/2024 11:15 AM EDT XR SHOULDER, 2 OR MORE VIEWS Medical Imaging Routine Pain in joint of right shoulder 06/19/2024 11:15 AM EDT LIPID PANEL WITH DIRECT LDL IF TG IS HIGH Lab Routine Dyslipidemia, goal LDL below 130 06/19/2024 11:35 AM EDT COMPREHENSIVE METABOLIC PANEL Lab Routine Dyslipidemia, goal LDL below 130 06/19/2024 11:35 AM EDT CBC WITH WBC DIFFERENTIAL AND ANEMIA REFLEX WORKUP Lab Routine HTN, goal below 140/90 Urinary incontinence, unspecified type 06/19/2024 11:35 AM EDT Scheduled Orders Name Type Priority Associated Diagnoses Orde r Schedule URINALYSIS, REFLEX TO CULTURE (NOT FOR NEUTROPENIC PATIENTS) Lab Routine Urinary incontinence, unspecified type Expected: 06/19/2024, Expires: 06/19/2025 PSA Lab Routine Urinary incontinence, unspecified type Urinary retention Expected: 06/19/2024 (Approximate), Expires: 06/19/2025 LIPID PANEL WITH DIRECT LDL IF TG IS HIGH Lab Routine Dyslipidemia, goal LDL below 130 Expected: 06/19/2024, Expires: 06/19/2025 COMPREHENSIVE METABOLIC PANEL Lab Routine Dyslipidemia, goal LDL below 130 Expected: 06/19/2024 (Approximate), Expires: 06/19/2025 CBC WITH WBC DIFFERENTIAL AND ANEMIA REFLEX WORKUP Lab Routine HTN, goal below 140/90 Urinary incontinence, unspecified type Expected: 06/19/2024 (Approximate), Expires: 06/19/2025 Health Maintenance Due Date Last Done Comments [...] as of this encounter Visit Diagnoses Diagnosis Dementia associated with Parkinson's disease (HCC)- Primary Parkinson's disease, unspecified whether dyskinesia present, unspecified whether manifestations fluctuate (HCC) HTN, goal below 140/90 Unspecified essential hypertension Dyslipidemia, goal LDL below 130 Other and unspecified hyperlipidemia Neck pain Cervicalgia Pain in joint of right shoulder Pain in joint, shoulder region Urinary incontinence, unspecified type Urinary retention Retention of urine, unspecified Need for COVID-19 vaccine Need for influenza vaccination Need for prophylactic vaccination and inoculation against influenza documented in this encounter Care Teams Digital Media Analyst Relationship Specialty Start Date End Date Gloria Lopez MD [address] [place] [address] J[place] Neumann [phone] PCP - General Family Medicine 06/03/15 documented as of this encounter"
--- OUTSIDE RECORDS SUMMARY | 2024-12-04 14:33 | External Medical Summary ---
Author Name Unknown Address Unknown Organization K01:LABORATORY [facility] - [address] [place] [address] Laboratory Report Ordering Provider Test Date Status MONICA RIBEIRO 06/19/2024 11:35:03 Final Observation Date Value Abnormality Reference (Units ) Status PSA 06/19/2024 11:35:03 0.39 <4.10 (ng/ mL) Final Performing Location LABORATORY [facility] - [address] [place] [address]
--- OUTSIDE RECORDS SUMMARY | 2024-12-04 14:33 | External Medical Summary ---
Author Name Unknown Address Unknown Organization K01:LABORATORY [facility] [place] - [address] [facility] [place] [address] Laboratory Report Ordering Provider Test Date Status MONICA RIBEIRO 06/19/2024 11:35:03 Final Observation Date Value Abnormality Reference (Units ) Status Triglyceride 06/19/2024 11:35:03 133 <=174 ( mg/dL) Final Triglyceride Reference Range s (mg/dL):
<150 Acceptable
150-174 Borderline high
175-499 High
>=500 Very high Cholesterol 06/19/2024 11:35:03 174 <200 (mg /dL) Final Total Cholesterol Reference Ranges (mg/dL):
<200 Desirable
200-239 Borderline high
>=240 High HDL 06/19/2024 11:35:03 38 Below low normal >39 (mg/dL) Final HDL Cholesterol Reference Ra nges (mg/dL):
>=60 High (Desirable)
<50 Low (Undesirable) For Females
<40 Low (Undesirable) For Males NON-HDL CHOLESTEROL 06/19/2024 11:35:03 136 <=159 (mg/dL) Final Non-HDL Cholesterol Referenc e Range (mg/dL):
<100 Target level for high risk ASCVD patient
<130 Optimal for general population
130-159 Near optimal for general population
160-189 Borderline High
190-219 High
>=220 Very High LDL, (calculated) 06/19/2024 11:35:03 109 <= 129 (mg/dL) Final LDL Cholesterol Reference Ra nges (mg/dL):
<70 Target level for high risk ASCVD patient
<100 Optimal for general population
100-129 Near optimal for general population
130-159 Borderline high
160-189 High
>=190 Very high Performing Location LABORATORY [facility] [place] - [address] [facility] [address]
--- OUTSIDE RECORDS SUMMARY | 2024-12-04 14:33 | External Medical Summary ---
Author Name Unknown Address Unknown Organization K01:LABORATORY [facility] [place] - [address] [facility] [place] [address] Laboratory Report Ordering Provider Test Date Status MONICA RIBEIRO 06/19/2024 11:35:03 Final Observation Date Value Abnormality Reference (Units ) Status WBC, Total 06/19/2024 11:35:03 9.99 4.00-10.8 0 (K/uL) Final RBC 06/19/2024 11:35:03 5.00 4.50-5.25 (M/uL) Final Hemoglobin 06/19/2024 11:35:03 16.4 14.0-16.8 (g/dL) Final Anemia reflex testing trigge rs on a HGB < 12.0 for Females and HGB < 13.0 for Males in accordance with the WHO Anemia Guidelines
Anemia reflex testing triggers on a HGB < 12.0 for Females and HGB < 13.0 for Males in accordance with the WHO Anemia Guidelines HCT 06/19/2024 11:35:03 48.8 Above hi gh normal 40.0-48.4 (%) Final MCV 06/19/2024 11:35:03 97.6 82.0-99.5 (fL) Final MCH 06/19/2024 11:35:03 32.8 27.0-34.0 (pg) Final MCHC 06/19/2024 11:35:03 33.6 32.0-36.0 (g/dL) Final RDW 06/19/2024 11:35:03 13.0 11.5-15.5 (%) Final Platelets 06/19/2024 11:35:03 248 140-400 (K /uL) Final MPV 06/19/2024 11:35:03 10.0 6.6-11.1 ( fL) Final Nucleated erythrocytes/100 leukocytes [Ratio] in Blood by Automated count 06/19/2024 11:35:03 0 <=0 (/100 WBCs) Final Performing Location LABORATORY [facility] [place] - [address] [facility] [address]
--- OUTSIDE RECORDS SUMMARY | 2024-12-04 14:33 | External Medical Summary | Summary of Care ---
Author Name Unknown Organization [facility] Address [address] [facility] [place] [address] Phone [phone] Care Team Providers Care Mutuel Department Manager Name Role Phone Gloria Lopez MD Primary Care Provide r Reason for Visit * Reason Onset Date Comments Medication Pre-auth 07/01/2024 Encounter Details Date Type Department Care Team ([facility] Contact Info) Description 07/01/2024 Telephone Neurology [facility] [address] [place] [address] Nitza Blood MD [address] [place] [address] Medication Pre-auth Allergies Active Allergy Reactions Criticality [...] Tablet Extended Release (Sinemet CR)Indications:PD (Parkinson's disease) ([facility]) TAKE 1 TABLET BY MOUTH AT BEDTIME 90 Tablet 3 08/28/2023 Active Losartan Potassium 50 MG Oral Tablet (Cozaar)Indications: HTN, goal below 140/90 TAKE ONE-HALF TABLET BY MOUTH IN THE MORNING 45 Tablet 2 04/24/2024 Active Nourianz 20 MG Oral Tablet (Istradefylline)Gissell cations:PD (Parkinson's disease) ([facility]) TAKE 1 TABLET BY MOUTH 1 TIME [...] Disease. Self-administered - route pre-cert request to [id number] See corresponding visit note(s) for additional supporting clinical information. Office Information: Prescriber: Nitza Blood MD documented in this encounter Plan of Treatment Upcoming Encounters Date Type Department Care Team (Late st Contact Info) Description 01/01/2025 3:40 PM EDT Telemedicine Neurology [facility] [address] [place] [address] Nitza Blood MD [address] [place] [address] 01/08/2025 9:00 AM EDT Office Visit Family Medicine [address] [place] [phone] Gloria Lopez MD [address] [place] [address] [place] [address] 07/30/2025 10:00 AM EST Office Visit Family Medicine [address] [place] [phone] Gloria Lopez MD [address] [place] [address] [place] [address] Health Maintenance Due Date Last Done Comments [...] filedocumented as of this encounter Care Teams Mutuel Department Manager Relationship Specialty Start Date End Date Gloria Lopez MD [address] [place] [address] [place] [id number] PCP - General Family Medicine 06/03/15 documented as of this encounter
--- OUTSIDE RECORDS SUMMARY | 2024-12-04 14:33 | External Medical Summary | Summary of Care ---
Author Name Unknown Organization [facility] Address [address] [place] [facility] [place] [address] Phone [phone] Care Team Providers Care Junior Web Developer Name Role Phone Gloria Lopez MD Primary Care Provide r Reason for Visit * Reason Comments Follow Up Encounter Details Date Type Department Care Team ([facility] st Contact Info) Description 06/29/2024 11:20 AM EDT Office Visit Neurology [facility] [address] [facility] [place] [address] Nitza Blood MD [address] [place] [address] Dementia associated with Parkinson's disease (HCC)*; Hallucinations Allergies Active Allergy Reactions Criticality Noted Date Comments Bee Stings 07/31/2010 Lisinopril Cough 01/09/2010 documented as of this encounter (statuses as of 06/29/2024) Medications Medication Sig Dispensed Refills Start Date [...] Use as directed 1 Each 04/21/2021 Active Carbidopa-Levodop a ER 50-200 MG Oral Tablet Extended Release (Sinemet CR)Indications:PD (Parkinson's disease) ([facility]) TAKE 1 TABLET BY MOUTH AT BEDTIME 90 Tablet 3 08/28/2023 Active Losartan Potassium 50 MG Oral Tablet (Cozaar)Indicatio ns:HTN, goal below 140/90 TAKE ONE-HALF TABLET BY MOUTH IN THE MORNING 45 Tablet 2 04/24/2024 Active Nourianz 20 MG Oral Tablet (Istradefylline)I ndications:PD (Parkinson's disease) ([facility]) TAKE 1 TABLET BY MOUTH 1 TIME DAILY. 30 Tablet 5 04/24/2024 Active QUEtiapine Fumarate 25 MG Oral Tablet (SEROquel)Indicat ions:Hallucinatio ns TAKE ONE-HALF TABLET BY MOUTH IN THE MORNING AND 2 TABLET BY MOUTH AT BEDTIME (dose increase) 270 Tablet 3 06/29/2024 Active Carbidopa-Levodop a 25-100 MG Oral Tablet (Sinemet) TAKE 1 TABLET BY MOUTH 4 TIMES DAILY AT 630 AM, 1030AM, 230 PM, 630 PM; AND TAKE ONE-HALF TABLET BY MOUTH AT BEDTIME 405 Tablet 3 06/29/2024 Active Inbrija 42 MG Inhalation Capsule (Levodopa) Inhale 1 capsule into lungs up to twice a day to treat freezing with parkinson's disease 60 Capsule 5 12/26/2023 06/29/2024 Discontinued (Formulary/C ost) QUEtiapine Fumarate 25 MG Oral Tablet (SEROquel)Indicat ions:Hallucinatio ns,Parkinson's disease ([facility]) TAKE ONE-HALF TABLET BY MOUTH IN THE MORNING AND 1-1/2 TABLET BY MOUTH AT BEDTIME 180 Tablet 3 02/25/2024 06/29/2024 Discontinued (Refill) Carbidopa-Levodop a 25-100 MG Oral Tablet (Sinemet)Indicati ons:PD (Parkinson's disease) ([facility]) TAKE 1 TABLET BY MOUTH 4 TIMES DAILY AT 630 AM, 1030AM, 230 PM, 630 PM; AND TAKE ONE-HALF TABLET BY MOUTH AT BEDTIME 405 Tablet 05/18/2024 06/29/2024 Discontinued (Refill) QUEtiapine Fumarate 25 MG Oral Tablet (SEROquel)Indicat ions:Hallucinatio ns TAKE ONE-HALF TABLET BY MOUTH IN THE MORNING AND 2 TABLET BY MOUTH AT BEDTIME (dose increase) 270 Tablet 3 06/29/2024 06/29/2024 Discontinued (Refill) documented as of this encounter (statuses as of 06/29/2024) Active Problems Problem Noted Date Diagnosed Date Dementia associated with Parkinson's disease Candidal intertrigo 02/25/2020 Parkinson's disease 11/14/2017 Low back pain radiating to left lower extremity 11/14/2017 Dyslipidemia, goal LDL below 130 04/30/2011 FAM HX-DIABETES MELLITUS 12/25/2002 HTN, goal below 140/90 07/02/2002 documented as of this encounter (statuses as of 06/29/2024) Resolved Problems Problem Noted Date Diagnosed Date Resolved Date Dyslipidemia, goal to be determined 08/18/2009 07/31/2010 Overview: Per Lipid Taxonomy. Mixed dyslipidemia 03/02/2002 Overview: Per Lipid Taxonomy. documented as of this encounter (statuses as of 06/29/2024) Immunizations Name Administration Dates Next Due COVID-19 mRNA, LNP-s, No Pre serve, 2-Dose Series (Moderna) 12/04/2021,06/26/2021,11/11/2020,10/14 COVID-19, MRNA-LNP, 24-25, P R, 30MCG/0.3ML, IM, 12YRS AND ABOVE (Pfizer-Comirnat) 06/19/2024 Pneumococcal Conjugate Vacc, 13 Valent (Prevnar) [...] Sign Reading Time Taken Comments Blood Pressure 118/74 06/29/2024 11:07 AM EDT Pulse 69 06/29/2024 11:07 AM EDT Temperature 35.5 °C (95.9 °F) 06/29/2024 11:07 AM E DT Respiratory Rate 16 06/29/2024 11:07 AM EDT Oxygen Saturation 97% 06/29/2024 11:07 AM EDT Inhaled Oxygen Concentration - - Weight - - Height - - Body Mass Index - - documented in this encounter Progress Notes * Nitza Blood MD - 06/29/2024 12:32 PM EDT CLINIC NOTES Neurology [facility] [place] [address] [place] [address] Toribio Covarrubias : 1945 NEUROLOGY OUTPATIENT NOTE 06/29/2024 HISTORY: The patient is referred for consultation by Dr. Lopez, who will be receiving a copy of this note. Patient comes today in follow-up of Parkinson's disease with dementia. This is the 1st time I have seen him in office for several years. Most recently we added Nourianz and freezing has resolved. He fell out of bed in the last week or so but in general does not have a whole lot of dream enacting behavior that having been said he yells out at night for help for hours at a time this initially responded to a small increase in dose of Seroquel but he is doing it again. He has occasional non bothersome hallucinations. He does not have the praxis to ambulate with a walker so he walks with his . He does not permit her to bathe him in the shower so she gives him a sponge bath on the toilet she leaves him home with the house while he naps and does grocery shoppingbut all the care's dependent on her. He has not had any falls Past Medical History: Diagnosis Date HTN, goal to be determined Mixed dyslipidemia Patient Active Problem List Diagnosis HTN, goal below 140/90 FAM HX-DIABETES MELLITUS Dyslipidemia, goal LDL below 130 Parkinson's disease (HCC) Low back pain radiating to left lower extremity Candidal intertrigo Dementia associated with Parkinson's disease (HCC) Past Surgical History: Procedure Laterality Date COLORECTAL [...] on file Housing Stability: Not on file Family History Problem Relation Name Age of Onset Cancer Mother pancreatic, Cancer Father lung, survived Cancer Sister breast, mid to late thirties Diabetes Father Eye Problems Father macular degeneration Current Outpatient Medications Medication Sig Dispense Refill [...] TABLET BY MOUTH ATBEDTIME 90 Tablet 3 Losartan Potassium 50 MG Oral Tablet (Cozaar) TAKE ONE-HALF TABLET BY MOUTH IN THE MORNING 45 Tablet 2 Nourianz 20 MG Oral Tablet (Istradefylline) TAKE 1 TABLET BY MOUTH 1 TIME DAILY. 30 Tablet 5 QUEtiapine Fumarate 25 MG Oral Tablet (SEROquel) TAKE ONE-HALF TABLET BY MOUTH IN THE MORNING AND 2TABLET BY MOUTH AT BEDTIME (dose increase) 270 Tablet 3 Carbidopa-Levodopa 25-100 MG Oral Tablet (Sinemet) TAKE 1 TABLET BY MOUTH 4 TIMES DAILY AT 630 AM, 1030AM, 230 PM, 630 PM; AND TAKE ONE-HALF TABLET BY MOUTH AT BEDTIME 405 Tablet 3 No current facility-administered medications for this visit. Review of patient's allergies indicates: Allergen Reactions Bee Stings Lisinopril Cough Results for orders placed or performed in visit on 04/17/21 CBC Result Value Ref Range WBC 8.92 4.00 - 10.80 K/uL RBC 5.26 (H) 4.50 - 5.25 M/uL HGB 17.1 (H) 14.0 - 16.8 g/dL HCT 49.4 (H) 40.0 - 48.4 % MCV 93.9 82.0 - 99.5 fL MCH 32.5 27.0 - 34.0 pg MCHC 34.6 32.0 - 36.0 g/dL RDW 12.6 11.5 - 15.5 % PLT 273 140 - 400 K/uL MPV 10.5 6.6 - 11.1 fL Results for orders placed or performed in visit on 04/13/21 BASIC METABOLIC PANEL Result Value Ref Range BUN 21 (H) 6 - 20 mg/dL CREATININE 1.0 0.6 - 1.2 mg/dL EGFR 70.6 >=60.0 mL/min SODIUM 142 135 - 146 mmol/L POTASSIUM 4.1 3.5 - 5.1 mmol/L CHLORIDE 103 98 - 107 mmol/L CO2 25 22 - 32 mmol/L ANION GAP 14 7 - 15 mmol/L GLUCOSE 108 70 - 120 mg/dL CALCIUM 9.7 8.4 - 10.2 mg/dL Results for orders placed or performed in visit on 05/06/13 LIPID PANEL Result Value Ref Range HOURS FASTING 12 hours Triglycerides 77 <200 mg/dL Cholesterol 219 (H) <200 mg/dL HDL Cholesterol 55 >39 mg/dL Cholesterol-HDL Ratio 4.0 LDL Cholesterol 149 (H) 0 - 129 mg/dL Results for orders placed or performed in visit on 06/19/24 LIPID PANEL WITH DIRECT LDL IF TG IS HIGH Result Value Ref Range Triglycerides 133 <=174 mg/dL Cholesterol 174 <200 mg/dL HDL Cholesterol 38 (L) >39 mg/dL Non-HDL Cholesterol 136 <=159 mg/dL LDL Cholesterol 109 <=129 mg/dL No results found for: "HEMOGLOBIN A1C" Lab Results Component Value Date/Time TSH - [facility] 2.03 05/28/2017 09:43 AM TSH - [facility] 2.07 03/02/2002 08:15 AM No results found for: "ALEX" Results for orders placed or performed in visit on 05/28/17 VITAMIN B12 Result Value Ref Range Vitamin B12 524 211 - 946 pg/mL Results for orders placed or performed in visit on 05/28/17 FOLIC ACID Result Value Ref Range Folic Acid 19.6 >4.5 ng/mL No results found for: "WEDS59BOL2" No results found for: "XYTR59BOT4" No results found for: "[id number]" No results found for: "25OHVITAMIND" Vitamin D Level Interpretation deficient: <20 ng/ml insufficient: 20-30 ng/ml normal: 31-100 ng/ml REVIEW OF SYSTEMS: As above PHYSICAL EXAM: BP 118/74 (BP Site: Right Arm, BP Position: Sitting, BP Cuff Size: Regular) | Pulse 69 | Temp 35.5 °C (95.9 °F) (Tympanic) | Resp 16 | SpO2 97% Patient is awake and alert there was some body odor there are no carotid bruits there is decreased blink frequency facial masking hypophonia some modest resting tremor with some cogwheel rigidity moderate tremor with intention he had difficulty assisting standing and we only took a few steps steps he was modestly or to severely bradykinetic with some severe postural instability IMPRESSION: Parkinson's disease with dementia nocturnal agitation increase Seroquel by half a pill at bedtime notify me if ineffective or not tolerated Resolve freezing Advanced Parkinson's disease with dementia I will have our staff make a home health referral. They have long-term care insurance and could usesome in-home help tried to explain to the patient that by getting some in-home health it will ensure that his stays safe and able to care for him total of 30 minutes spent with the patient more than 50% in counseling Nitza Blood MD 06/29/2024 12:32 PM documented in this encounter Nursing Notes * Brooke Glaser LPN - 06/29/2024 11:06 AM EDT Patient verified identity by spelling of last name and date. Chief Complaint Patient presents with Follow Up documented in this encounter Plan of Treatment Upcoming Encounters Date Type Department Care Team (Late st Contact Info) Description 01/01/2025 3:40 PM EDT [facility] [address] [facility] [place] [address] Nitza Blood MD [address] [facility] [place] [address] 01/08/2025 9:00 AM EDT Office Visit [address] [phone] Gloria Lopez MD [address] [place] [address] [place] [address] 07/30/2025 10:00 AM EST Office Visit [address] [place] [phone] Gloria Lopez MD [address] [place] [address] [place] [address] Health Maintenance Due Date Last Done Comments [...] Dementia associated with Parkinson's disease (HCC)- Primary Hallucinations documented in this encounter Care Teams Junior Web Developer Relationship Specialty Start Date End Date Gloria Lopez MD [address] [place] [address] [place] [address] PCP - General Family Medicine 06/03/15 documented as of this encounter
[2024-12-04 15:51] LABS: Bilirubin Direct 0.1 mg/dl (0-0.2)
[2024-12-04 15:58] LABS: Troponin I High Sensitivity 41.4 pg/ml (0-20)
[2024-12-04] MEDS: SODIUM CHLORIDE 0.9% 1,000 ML IV SCH (16:05)
[2024-12-04] MEDS: AZITHROMYCIN 500 MG/255 ML BAG IV SCH (16:05)
[2024-12-04] MEDS: SCOPOLAMINE 1 MG/72 HR TDSY PATCH TD SCH (16:07)
[2024-12-04] MEDS: CHECK SCOPOLAMINE PATCH PLACEMENT SCH (16:10)
[2024-12-04] MEDS: CARBIDOPA/LEVODOPA 25/100MG TAB PO SCH (16:46)
[2024-12-04] MEDS: ACETAMINOPHEN 325 MG TAB PO PRN (20:08)
[2024-12-04] MEDS: CARBIDOPA/LEVODOPA 50/200MG EXT REL TAB PO SCH (20:08)
[2024-12-04] MEDS ORDERED: guaiFENesin 600 MG TABCR PO SCH (21:00)
[2024-12-04] MEDS ORDERED: CARBIDOPA/LEVODOPA 25/100MG TAB PO SCH (21:00)
--- NOTE | 2024-12-05 02:49 | Communication Note ---
Date of Service: December 05, 2024 Patient with audible rhonchi as per RN. Aspiration concerns as per staff. Chest x-ray as per my interpretation interstitial congestion Lasix [address] of ceftriaxone and azithromycin for possible aspiration pneumonitis
[2024-12-05] MEDS: ALBUT/IPRATROP 3MG/0.5MG NEB 3 ML VIAL NEB STA (03:15)
[2024-12-05] MEDS: AMPICILLIN/SULBACTAM SOD 3,000 MG/100 ML BAG IV SCH (04:09)
--- NOTE | 2024-12-05 04:17 | XRay Report ---
EXAM: XR chest 1V portable CLINICAL HISTORY: Rhonchi TECHNIQUE: An X-ray image of the chest is obtained in AP projection. COMPARISON: 03/31/2021 chest x-ray. FINDINGS: Pulmonary Parenchyma: Decrease both lung volume (expiratory film). Increased bronchovascular markings. No evidence of pleural effusion. Heart and Mediastinum: The heart size is enlarged with bilateral congested gerda. Calcific aortic arch. No mediastinal widening or masses. No hilar or mediastinal lymphadenopathy. Bony Thorax: The bony thorax appears intact without fractures or deformities. Soft Tissues: Soft tissues overlying the chest wall are unremarkable. IMPRESSION: 1. Cardiomegaly with congested gerda and increased bronchovascular markings. Findings likely represent pulmonary congestion and could be an underlying mild infection. Advise clinical and lab correlation. 2. Interval time progression course of the disease. Electronically signed by Khoa Ramires 12-05-2024 04:17 AM
[2024-12-05 06:36] LABS: Hematocrit (blood only) 40.3 % (42.0-52.0); Hemoglobin 13.5 g/dl (14.0-18.0); Mean Corpuscular Hemoglobin 31.7 pg (25.0-34.0); Mean Corpuscular Hgb Conc 33.5 g/dL (32.0-36.0); Mean Corpuscular Volume 94.6 fL (80.0-100.0); Mean Platelet Volume 8.9 fL (9.4-12.4); Platelet Count 171 K/uL (130-400); RDW Coefficient of Variation 13.3 % (11.5-14.5); RDW Standard Deviation 46.5 fL (36.4-46.3); Red Blood Count 4.26 M/uL (4.70-6.10); White Blood Count 9.93 K/ul (4.8-10.8)
[2024-12-05 06:48] LABS: BUN Creatinine Ratio 14.7 (10-20); Calcium 8.1 mg/dl (8.6-10.3); Creatinine Clr Calc Pharmacy 58.9 ml/min; Magnesium 1.9 mg/dl (1.7-2.4); Potassium 3.9 mmol/L (3.5-5.1)
[2024-12-05] MEDS ORDERED: cefTRIAXone SODIUM 2,000 MG/50 ML BAG IV SCH (08:00)
[2024-12-05] MEDS: ENOXAPARIN INJ 40 MG/0.4 ML SYR SQ SCH (08:06)
[2024-12-05] MEDS: LOSARTAN POTASSIUM 25 MG TAB PO SCH (08:07)
--- NOTE | 2024-12-05 08:12 | Hospitalist Progress Note ---
<Statement entered by Lester Rolle, - 12/05/24 15:34> I have seen and examined the patient and have discussed the case with the advance practice provider. I have reviewed the advanced practitioner's documentation, and I agree with, and take responsibility for that plan of care. Patient significantly more interactive today than compared to yesterday. Oral secretions seems of improved. Over last 24 hours nursing noted some signs of aspiration/coughing with liquids. Continue with current diet Continue antibiotics Further plan of care discussed and as outlined below I spent a total of 13 minutes coordinating, documenting, and providing care for this patient excluding time spent by another provider/QHP. Date of Service December 05, 2024 Assessment & Plan (1) Sepsis: (2) Delirium: (3) Encephalopathy: (4) Parkinsons disease: (5) Hypertension: (6) Elevated troponin: (7) Hypomagnesemia: Plan Mr. Covarrubias presented to the ED today with altered mental status along with being combative. His , Natividad, stated that he was at baseline for the most part, yesterday, went to bed as usual and slept terribly. She said that he woke up today more confused and angry, leading the to call 911. Patient has a PMH that includes: Parkinson's Disease with behavioral disturbance and HTN. Patient will be admitted for further management of his delirium in the setting of sepsis with metabolic encephalopathy likely related to a pulmonary source with continue empiric IV abx, IV fluids, holding all antipsychotic medications, hold new medication (istradefylline) initiating melatonin, and possible 1:1 if necessary. Will replace electrolytes. Parkinson's Disease with behavioral disturbance: Silent Aspiration: Appears to be back to baseline functional status per . He is able to be focal and has limb rigidity at baseline. Suspect chronic aspiration, less noticeable today. Was started on Scope patch yesterday with improvement of audible secretions Overall functional decline; at baseline patient has caregiver 3x/week. More recently, was told he was entering last phase of Parkinson disease. Was recently started on istradefylline in October 2024; reports his symptoms worsened after this with his hallucinations; may be a contributing factor; hold WC bound at baseline PT/OT/ST, aspiration precautions. PT/OT to assist with placement recommendations as caregiver burden. Per , they have [facility] caregivers 3x/week. Natividad has already spoke with them about 25/03 caregivers. DNR/DNI Sepsis: IMPROVED Delirium: Encephalopathy: Met sepsis criteria on admission for leukocytosis 14.95, fever 40.1C, and tachycardia up to 108 Lactate 2.0. UA and Biofire negative. Procal negative Blood cultures x2 NGTD Received IV fluids over past 24 hours with improvement; improving and now taking PO. Started on IV Rocephin in ED; continue and add Azithromycin empirically; switched to Unasyn; continue for now Chest CT revealed diffuse bronchial wall thickening and subpleural opacities suggestive of atelectasis. No consolidation to suggest pneumonia. Recently started on istradefylline in October 2024; reports his symptoms worsened after this with his hallucinations; may be a contributing factor; hold Hold all antipsychotics; add Melatonin QHS Unable to participate in flutter valve, incentive spirometry. PT/OT/ST, aspiration precautions. Hypomagnesemia: RESOLVED Serum Mg+ 1.6; replaced with 1G in ED. Mg+ 1.9 today. Elevated Troponin: RESOLVED Troponin Peak 48.7; suspect related to ischemic demand in setting of sepsis rather than ACS. HTN: Chronic Takes losartan; continue Disposition: PCP: Dr. Lopez Code Status: DNR/DNI VTE Prophylaxis: Lovenox SQ I spent a total of 56 minutes coordinating, documenting, and providing care for this patient excluding time spent inthe performance of separately billed services or time spent by another provider/QHP. Admission and Anticipated Discharge Date Admission Date: December 04, 2024 Subjective This morning, patient sitting in hospital bed; eyes open, able to be focal. His left arm had a coban on it and his left hand was erythematous; this was removed and improved. Overall, his mentation has significantly improved from admission and per his is nearing his baseline. Lengthy conversation with his , Natividad, at bedside, who stated that her overarching goal is for him to return home at discharge. She has already spoke with [facility] who is working on 25/03 caregivers. She called them on 12/03. Discussed with case management who will follow up tomorrow. Review of Systems Review of Systems: Unobtainable due to cognitive status Limited ROS due to advanced Parkinson's Disease. Able to answer yes or no for some questions. Denies pain. Physical Exam Physical Exam: Neuro: AAOx1, PERRLA, no aphagia, memory changes, CNII-XII grossly intact. Confused at baseline. HEENT: head normocephalic, moist mucus membranes CV: S1/S2, (-) M/G/R, (-) edema, cap refill < 3 seconds Resp: Lungs expiratory coarse, no wheezes. On RA. GI: Abdomen S/NT/ND, Ax4 bowel sounds, (-) CVA tenderness Musculoskeletal: 5/5 B/L UE strength, 5/5 B/L LE strength. WC bound Skin: (-) rashes , (-) erythema. Left hand erythematous from coban; improving Psych: euthymic mood Results & Data Results & Data Vital Signs (Past 12 Hours) Vital Signs Temp Pulse Pulse Resp BP BP Pulse Ox 12/05/24 07:00 80 12/05/24 03:43 36.9 C 93 H 18 123/72 93 12/05/24 03:16 68 18 98 12/04/24 22:29 36.7 C 76 16 102/60 92 12/04/24 22:27 75 O2 Del Method 12/05/24 07:00 12/05/24 03:43 Room Air 12/05/24 03:16 Room Air 12/04/24 22:29 Room Air 12/04/24 22:27 Laboratory Results Short CBC 12/05/24 Range/Units 06:09 WBC 9.93 (4.8-10.8) K/ul Hgb 13.5 L (14.0-18.0) g/dl Hct 40.3 L (42.0-52.0) % Plt Count 171 (130-400) K/uL BMP 12/05/24 06:09 Sodium 138 Potassium 3.9 Chloride 107 Carbon Dioxide 26 BUN 16 Creatinine 1.09 Glucose 97 Calcium 8.1 L Liver Function 12/04/24 Range/Units 15:15 Direct Bilirubin 0.1 (0-0.2) mg/dl Diagnostic Findings Chest X-Ray 12/05/24 02:48 EXAM: XR chest 1V portable CLINICAL HISTORY: Rhonchi TECHNIQUE: An X-ray image of the chest is obtained in AP projection. COMPARISON: 03/31/2021 chest x-ray. FINDINGS: Pulmonary Parenchyma: Decrease both lung volume (expiratory film). Increased bronchovascular markings. No evidence of pleural effusion. Heart and Mediastinum: The heart size is enlarged with bilateral congested gerda. Calcific aortic arch. No mediastinal widening or masses. No hilar or mediastinal lymphadenopathy. Bony Thorax: The bony thorax appears intact without fractures or deformities. Soft Tissues: Soft tissues overlying the chest wall are unremarkable. IMPRESSION: 1. Cardiomegaly with congested gerda and increased bronchovascular markings. Findings likely represent pulmonary congestion and could be an underlying mild infection. Advise clinical and lab correlation. 2. Interval time progression course of the disease. Electronically signed by Khoa Ramires 12-05-2024 04:17 AM (1) Sepsis Sepsis acute organ dysfunction status: unspecified Sepsis type: sepsis due to unspecified organism Qualified Code(s): A41.9 - Sepsis, unspecified organism (3) Encephalopathy Encephalopathy type: unspecified encephalopathy Qualified Code(s): G93.40 - Encephalopathy, unspecified (4) Parkinsons disease Dyskinesia presence: unspecified whether dyskinesia Fluctuating manifestations: with fluctuating manifestations Qualified Code(s): G20.A2 - P arkinson's disease without dyskinesia, with fluctuations
[2024-12-05] MEDS: FUROSEMIDE INJ 20 MG/2 ML VIAL IV ONE (08:17)
[2024-12-05] MEDS ORDERED: PHA DELIRIUM CONSULT PRN (09:23)
[2024-12-06 09:40] LABS: Hematocrit (blood only) 41.6 % (42.0-52.0); Hemoglobin 14.1 g/dl (14.0-18.0); Mean Corpuscular Hemoglobin 31.7 pg (25.0-34.0); Mean Corpuscular Hgb Conc 33.9 g/dL (32.0-36.0); Mean Corpuscular Volume 93.5 fL (80.0-100.0); Mean Platelet Volume 9.6 fL (9.4-12.4); Platelet Count 190 K/uL (130-400); RDW Standard Deviation 44.9 fL (36.4-46.3); Red Blood Count 4.45 M/uL (4.70-6.10); White Blood Count 7.11 K/ul (4.8-10.8)
[2024-12-06 09:54] LABS: BUN Creatinine Ratio 15.8 (10-20); Calcium 8.4 mg/dl (8.6-10.3); Creatinine Clr Calc Pharmacy 67.5 ml/min; Potassium 4.1 mmol/L (3.5-5.1)
--- NOTE | 2024-12-06 14:09 | Hospitalist Progress Note ---
<Statement entered by Lester Rolle, - 12/06/24 14:42> I have seen and examined the patient and have discussed the case with the advance practice provider. I have reviewed the advanced practitioner's documentation, and I agree with, and take responsibility for that plan of care. Patient appears significantly improved today, more alert and interactive. Difficult to understand his speech but attempting to answer questions Continues with some coarse upper airway sounds and decreased breath sounds arranging 24-hour care. Layering hospice care over the 24-hour care Discussed plan of care as outlined below I spent a total of 15 minutes coordinating, documenting, and providing care for this patient excluding time spent by another provider/QHP. Date of Service December 06, 2024 Assessment & Plan (1) Sepsis: (2) Delirium: (3) Encephalopathy: (4) Parkinsons disease: (5) Hypertension: (6) Elevated troponin: (7) Hypomagnesemia: Plan Mr. Covarrubias presented to the ED today with altered mental status along with being combative. His , Natividad, stated that he was at baseline for the most part, yesterday, went to bed as usual and slept terribly. She said that he woke up today more confused and angry, leading the to call 911. Patient has a PMH that includes: Parkinson's Disease with behavioral disturbance and HTN. Patient with advanced Parkinson's Disease; he has returned to baseline functional status. Goal to return home with hospice support while arranges 25/03 caregiver support. Parkinson's Disease with behavioral disturbance: Silent Aspiration: Appears to be back to baseline functional status per . He is able to be focal and has limb rigidity at baseline. Suspect chronic aspiration; Scope patch in place for audible secretions Was recently started on istradefylline in October 2024; reports his symptoms worsened after this with his hallucinations; may be a contributing factor; hold WC bound at baseline. Per , they have [facility] caregivers 3x/week. Natividad has already spoke with them about 25/03 caregivers; plan to return home with Hospice on 12/07 + equipment delivery. Meets Hospice criteria with Dx: Parkinson's Disease DNR/DNI Disposition: PCP: Dr. Lopez Code Status: DNR/DNI VTE Prophylaxis: Lovenox SQ I spent a total of 54 minutes coordinating, documenting, and providing care for this patient excluding time spent inthe performance of separately billed services or time spent by another provider/QHP. Admission and Anticipated Discharge Date Admission Date: December 04, 2024 Subjective Patient sitting in bedside chair in no apparent distress. Per , has returned to baseline functional status. Pt/OT expressed concerns as pt is a 2 assist +. Lengthy conversation with his , Natividad, at bedside, who stated that her overarching goal is for him to return home at discharge. Hospice conversation held. She has already spoke with [facility] who is working on 25/03 caregivers. She called them on 12/03. Discussed with case management and plan for return home with Hospice services + equipment on 12/07. Review of Systems Review of Systems: Limited ROS due to advanced Parkinson's Disease. Able to answer yes or no for some questions. Denies pain. Physical Exam Physical Exam: Neuro: AAOx1, PERRLA, no aphagia, memory changes, CNII-XII grossly intact. Confused at baseline. HEENT: head normocephalic, moist mucus membranes CV: S1/S2, (-) M/G/R, (-) edema, cap refill < 3 seconds Resp: Lungs expiratory coarse, no wheezes. On RA. GI: Abdomen S/NT/ND, Ax4 bowel sounds, (-) CVA tenderness Musculoskeletal: 5/5 B/L UE strength, 5/5 B/L LE strength. WC bound Skin: (-) rashes , (-) erythema. Left hand erythematous from coban; improving Psych: euthymic mood Results & Data Results & Data Vital Signs (Past 12 Hours) Vital Signs Temp Pulse Pulse Resp BP Pulse Ox O2 Del Method 12/06/24 11:38 36.8 C 83 16 162/76 H 93 Room Air 12/06/24 08:21 36.9 C 79 16 150/78 H 94 Room Air 12/06/24 05:52 80 12/06/24 03:11 88 18 170/87 H 95 Room Air (1) Sepsis Sepsis acute organ dysfunction status: unspecified Sepsis type: sepsis due to unspecified organism Qualified Code(s): A41.9 - Sepsis, unspecified organism (3) Encephalopathy Encephalopathy type: unspecified encephalopathy Qualified Code(s): G93.40 - Encephalopathy, unspecified (4) Parkinsons disease Dyskinesia presence: unspecified whether dyskinesia Fluctuating manifestations: with fluctuating manifestations Qualified Code(s): G20.A2 - Parkinson's disease without dyskinesia, with fluctuations
[2024-12-07 07:50] VITALS: RESP 16
[2024-12-07] MEDS ORDERED: ARTIFICIAL TEARS OPB PRN (11:13)
[2024-12-07 11:18] VITALS: PULSE 73; TEMP 97.7; O2SAT 90
--- NOTE | 2024-12-07 11:57 | Discharge Summary ---
Discharge Summary Date of Service December 07, 2024 Principal Dx & Hospital Course #1 = Principal Diagnosis (1) Sepsis: (2) Delirium: (3) Encephalopathy: (4) Parkinsons disease: (5) Hypertension: (6) Elevated troponin: (7) Hypomagnesemia: (8) Aspiration pneumonia due to saliva: Plan Patient is a 79-year-old gentleman with already advanced Parkinson's. 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 Presented to the emergency room with increasing altered mental status, bit more irritated and difficult to care for. In the emergency room workup was consistent for possible pneumonia. Patient was cared for in the hospital. He is given some IV hydration and treated with antibiotics. By the following day his mental status had significantly improved and through the course of his hospitalization essentially returned to his baseline. Patient does have some significant Parkinson's dementia and encephalopathy. Conversations were held with the . She seemed to think that the patient was not getting any benefit from the increased dose of istradefylline. We chose to discontinue that medication. He was also witnessed having some episodes of aspiration and had trouble clearing his secretions. Suspect that the patient's congestion in his chest and findings on imaging is due to chronic aspiration. His is committed to taking the patient home and has coordinated 24-hour care. She also is agreeable to adding hospice care to the care that she has lined up. On the day of discharge patient was awake. Attempting to communicate but very difficult to understand his words due to his significant aphasia with his dementia and Parkinson's. His vital signs were stable. Case management is involved in helping coordinate home care and transportation home. To be discharged when all this is arranged to continue his care at home with goal to keep him comfortable at home going forward. Notes For Next Care Provider Continue care with hospice, avoid emergency department/hospitalizations if at all possible to keep him comfortable at home Medication Changes From Visit Ron discontinued Quetiapine dose decreased Admission HPI Per Admitting Provider Mr. Covarrubias presented to the ED today with altered mental status along with being combative. His , Natividad, stated that he was at baseline for the most part, yesterday, went to bed as usual and slept terribly. She said that he woke up today more confused and angry, leading the to call 911. Patient has a PMH that includes: Parkinson's Disease with behavioral disturbance (wheel chair bound at baseline) and HTN. Leukocytosis 14.95, Mg+ 1.6, Troponin 48.5--> 48/7; suspect related to ischemic demand. Chest CT revealed diffuse bronchial wall thickening and subpleural opacities suggestive of atelectasis. No consolidation to suggest pneumonia.CXR revealed cardiomegaly with pulmonary vascular congestion. CTAP revealed small hiatal hernia and esophagitis. Head CT was negative for acute intracranial process. Pt is lying flat on his back, intermittently with fasciculation. He does open his eyes to verbal stimuli but is unable to communicate or hold a meaningful conversation. Pt , Natividad, at bedside, states that he has caregivers 3x per week and has recently been advised that he should have 24/7 care. She said that his parkinsons is advancing, but he is able to still communicate his needs when he wants to eat or go to the bathroom. Unsure how reliable his is. Natividad reports he does not use tobacco products, drinks one beer in the evening every other day, and no recreational drugs. They do not have any children. They have had conversation in the past regarding his wishes and she would like him to be a DNR/DNI. She is ok with Bipap if needed. Patient will be admitted for further management of his delirium in the setting of sepsis with metabolic encephalopathy likely related to a pulmonary source with continue empiric IV abx, IV fluids, holding all antipsychotic medications, initiating melatonin, and possible 1:1 if necessary. Will replace electrolytes. Please see A/P for further details. Admission Exam Per Admitting Provider See H&P Discharge Exam Constitutional: Alert, chronically ill HEENT: Mucous membranes dry Lungs: upper airway rhonchi CV: S1-S2, regular Abdomen: Soft, nontender, nondistended Extremities: No significant edema Neuro: Parkinson's dementia, Parkinson's rigidity, Parkinson's flat facies Psych: Cooperative, Updated Medication List Medication Instructions Recorded Confirmed Type carbidopa 25 mg-levodopa 100 mg 0.5 - 1 tab PO 5XD 04/01/21 12/04/24 History tablet carbidopa ER 50 mg-levodopa 200 mg 1 tab PO HS 04/01/21 12/04/24 History tablet,extended release losartan 50 mg tablet 25 mg PO DAILY 04/01/21 12/04/24 History multivitamin 1 tab PO DAILY 04/01/21 12/04/24 History istradefylline 20 mg tablet 20 mg PO QAM 12/04/24 12/04/24 History (Nourianz) quetiapine 25 mg tablet 12.5 - 37.5 mg PO BID 12/04/24 12/04/24 History trazodone 100 mg tablet 100 mg PO HS 12/04/24 12/04/24 History Artificial Tears Soln 1 drp OPB Q2H PRN irritated eyes 12/07/24 Rx #1 btl scopolamine base 1 mg over 3 days 1 patch transdermal Q72H #10 ea 12/07/24 Rx transdermal patch (Transderm-Scop) Hospital Stay Data Consultations 12/04/24 13:11 ED Decision to Admit Stat Diagnostic Imagining Performed 12/04/24 11:13 CT abd pelvis IV con only Stat CT angio chest PE protocol Stat CT head/brain wo con Stat Reviewed imaging, laboratory and diagnostic studies. Pertinent findings as below. Blood cultures no growth Chest x-ray showing bronchovascular congestion WBCs 7.1 Hemoglobin 14.1 Electrolytes within normal ranges Creatinine 0.95 Pending Results Patient Have Any Pending Studies at Discharge: No Discharge Instructions Given to Patient (Per Discharging Provider) Call hospice first with any questions or concerns. Our goal and your goal is to keep him comfortable at home Home Health Attestation I certify that this patient is under my care and that I, or a physicians respiratory therapy assistant working with me, had a face to-face encounter that meets the home health [id number] encounter requirements with this patient. The encounter with the patient was in whole, or in part, for the following medical condition, which is the primary reason for home health care (list medical condition): I certify that, based on my findings, the following services are medically necessary home health services: My clinical findings support the need for the above services because: Further, I certify that my clinical findings support that this patient is homebound (i.e. absences from home require considerable and taxing effort and are for medical reasons or sikh services or infrequently or of short duration when for other reasons) because: Certification for Home Health Services: Based on the above findings, I certify that this patient is confined to the home and needs intermittent senior living care, physical therapy and/or speech therapy or continues to need occupational therapy. The patient is under my care, and I have initiated the establishment of the plan of care. This patient will be followed by a physician who will periodically review the plan of care. Total Time Total Time Spent Total Time Spent (In Minutes): 38
[2024-12-07 12:18] VITALS: BP 123/72
== END 2024-12-07 13:41 | disposition hospice, home (50) | DRG 871 ==
LOC: ED 07:59 → 2N 13:24

== ENCOUNTER 2025-06-10 09:01 | Inpatient (IN) ==
[2025-06-10 09:33] LABS: Hematocrit (blood only) 44.2 % (42.0-52.0); Hemoglobin 15.1 g/dl (14.0-18.0); Immature Granulocytes # (auto) 0.05 K/uL (0.01-0.20); Immature Granulocytes % (auto) 0.5 %; Mean Corpuscular Hemoglobin 31.6 pg (25.0-34.0); Mean Corpuscular Volume 92.5 fL (80.0-100.0); Platelet Count 213 K/uL (130-400); RDW Standard Deviation 43.7 fL (36.4-46.3); Red Blood Count 4.78 M/uL (4.70-6.10); White Blood Count 9.86 K/ul (4.8-10.8)
[2025-06-10 09:35] LABS: Appearance Urine Clear (Clear); Glucose Urine UA Negative (Negative)
[2025-06-10 09:55] LABS: Alanine Aminotransferase 9.0 U/L (7-52); Albumin Globulin Ratio 1.6 (0.9-2); Albumin Level 3.7 gm/dl (3.4-5.0); Alkaline Phosphatase 53.0 U/L (34-104); Anion Gap 6.0 (3-11); Bilirubin,Total 1.2 mg/dl (0.2-1.0); Blood Urea Nitrogen 16.0 mg/dl (6-23); Calcium 8.9 mg/dl (8.6-10.3); Carbon Dioxide 27.0 mmol/L (21-32); Chloride 107.0 mmol/L (98-107); Creatinine Clr Calc Pharmacy 58.1 ml/min; Globulin 2.3 gm/dl (2.5-4.0); Glucose 95.0 mg/dl (70-99(Fasting)); Lipase 26.0 U/L (11-82); Potassium 4.0 mmol/L (3.5-5.1); Sodium 140.0 mmol/L (136-145); Total Protein 6.0 gm/dl (6.0-8.3)
--- NOTE | 2025-06-10 10:26 | Emergency Department Note ---
Impression & Plan Delirium, Encephalopathy ED Provider Note NAME: ROMAN PRATT AGE: 79 SEX: M : 1945 ARRIVES VIA: Ambulance INFORMANT: Patient, ED PROVIDER(S): Livan Rogers MD CHIEF COMPLAINT: Altered mental status HPI: This an 79-year-old male presented for altered mental status. Patient is a baseline history of dementia and Parkinson's. Patient history is provided by bedside orchestra leader. States that patient lives alone, does have baseline dementia. He has been more altered, hallucinating not acting himself. They were concerned he had a UTI which he was treated for last week. They report no fevers, chills, nausea or vomiting. Unclear if recent falls but none reported by orchestra leader. ROS: See above HPI for pertinent positives & negatives. A total of 10 systems reviewed and were otherwise negative. PAST MEDICAL HISTORY: See Below PAST SURGICAL HISTORY: See Below FAMILY HISTORY: See Below SOCIAL HISTORY: See Below HOME MEDICATIONS: See Below ALLERGIES: See Below VITALS: See Below PHYSICAL EXAMINATION: General: Disheveled, no acute distress Head: Normocephalic and atraumatic Eyes: Normal inspection, extraocular muscles intact Ear, nose, throat: Normal external exam Neck: Normal range of motion Respiratory: lungs clear to auscultation bilaterally Cardiovascular: Regular rate/rhythm, no murmur GI: soft, nontender, no guarding or rebound Extremities: nontender, moves all extremities Neuro: The patient awake and alert, not oriented, no focal deficits, symmetric faces Skin: Warm, dry, and intact MEDICAL DECISION MAKING: This is an 79-year-old male presented for altered mental status. Patient has history of baseline dementia. He appears disheveled. He cannot tell me clear history. Will do screening head CT, basic blood work and urinalysis. He has no pain on palpation. No signs of external injury. -Bloodwork is reviewed showing no significant leukocytosis, anemia, electrolyte or creatinine abnormality -Negative urinalysis -Negative CT head -After questions family and caretakers, they state patient cannot be taken care of at home, he has exceeded their abilities due to his altered mental status. They request admission -Care discussed the [facility] service for admission Differential diagnosis: Altered mental status UTI, dementia, delirium, intracranial hemorrhage Independent History obtained from: , orchestra leader Diagnostics interpreted by me: ECG: None Cardiac Monitoring: An order was placed for continuous cardiac monitoring. The monitor shows a rate of 87 with sinus rhythm. Past Med/Surg History Problem List (Updated 06/10/25 @ 17:35 by Livan Rogers MD) Parkinson's disease Dementia Aspiration pneumonia due to saliva Hypomagnesemia (Acute) Elevated troponin (Acute) Parkinsons disease (Acute) Sepsis (Acute) Encephalopathy (Acute) Delirium (Acute) Medical History Ambulatory dysfunction DVT prophylaxis Lung nodule Tinea cruris Acute delirium Altered mental status Hallucinations Confusion Hypertension Social History Smoking Status: Unknown if ever smoked Tobacco Type: Cigarettes Second Hand Exposure: No; Do You Dip or Chew Tobacco: No; Hx Alcohol Use: Yes Alcohol type: beer Hx Substance Use: No Preferred Language: Cuban Communication Ability: Impaired Web Operations Lead Required: No Beliefs That Will Affect Care: None marital status: Current Living Situation: Spouse Feels Safe at Home: Yes Assistive Devices: Glasses Allergies Allergies Allergy/AdvReac Type Severity Reaction Status Date / Time bee venom protein (honey bee) Allergy Unknown Verified 12/04/24 09:55 lisinopril AdvReac Cough Verified 12/04/24 09:55 Home Meds Home Medications Medication Instructions Recorded Confirmed carbidopa 25 mg-levodopa 100 mg 1 tab PO TID 04/01/21 06/10/25 tablet losartan 50 mg tablet 25 mg PO QAM 04/01/21 06/10/25 multivitamin 1 tab PO DAILY 04/01/21 06/10/25 lorazepam 1 mg tablet 0.5 mg PO Q4H PRN Agitation/Sleep 06/10/25 06/10/25 quetiapine 25 mg tablet See Rx Instructions .Route .COMPLEX 06/10/25 06/10/25 trazodone 100 mg tablet 100 mg PO HS 06/10/25 06/10/25 Results & Data (ED) Vital Signs Vital Signs - 24 hr 06/10/25 09:01 06/10/25 09:16 06/10/25 09:20 Temperature 37.5 C Temperature Source Rectal Pulse Rate 80 82 Pulse Rate [Right Finger] Respiratory Rate 22 Respiratory Effort / Characteristics Non-Labored Spontaneous Respiratory Depth Normal Respiratory Pattern Blood Pressure 142/86 H Blood Pressure [Right Arm] Blood Pressure Mean 104 Blood Pressure Mean [Right Arm] Pulse Oximetry 95 95 Oxygen Delivery Method Room Air Room Air Sepsis Recent Fever Within 48 Hours No Sepsis New/Unexplained Change in Mental Status N/A Sepsis Action Taken by Nursing No Action Required 06/10/25 09:47 06/10/25 11:06 Temperature Temperature Source Pulse Rate Pulse Rate [Right Finger] 80 82 Respiratory Rate 18 16 Respiratory Effort / Characteristics Non-Labored Spontaneous Non-Labored Spontaneous Respiratory Depth Normal Normal Respiratory Pattern Regular Blood Pressure Blood Pressure [Right Arm] 133/94 154/90 H Blood Pressure Mean Blood Pressure Mean [Right Arm] 107 111 Pulse Oximetry 96 96 Oxygen Delivery Method Room Air Room Air Sepsis Recent Fever Within 48 Hours Sepsis New/Unexplained Change in Mental Status Sepsis Action Taken by Nursing Laboratory Data 06/10/25 09:10 06/10/25 09:10 Lab Results 06/10/25 Range/Units 09:10 WBC 9.86 (4.8-10.8) K/ul RBC 4.78 (4.70-6.10) M/uL Hgb 15.1 (14.0-18.0) g/dl Hct 44.2 (42.0-52.0) % MCV 92.5 (80.0-100.0) fL MCH 31.6 (25.0-34.0) pg MCHC 34.2 (32.0-36.0) g/dL RDW Std Deviation 43.7 (36.4-46.3) fL RDW Coeff of Celena 12.8 (11.5-14.5) % Plt Count 213 (130-400) K/uL MPV 9.7 (9.4-12.4) fL Immature Gran % (Auto) 0.5 % Neut % (Auto) 75.3 % Lymph % (Auto) 14.3 % [place] % (Auto) 8.6 % Eos % (Auto) 0.6 % Baso % (Auto) 0.7 % Neut # (Auto) 7.42 H (1.40-6.50) K/uL Lymph # (Auto) 1.41 (1.20-3.40) K/uL [place] # (Auto) 0.85 H (0.11-0.59) K/uL Eos # (Auto) 0.06 (0.00-0.50) K/uL Baso # (Auto) 0.07 (0.00-0.20) K/uL Immature Gran # (Auto) 0.05 (0.01-0.20) K/uL Sodium 140 (136-145) mmol/L Potassium 4.0 (3.5-5.1) mmol/L Chloride 107 (98-107) mmol/L Carbon Dioxide 27 (21-32) mmol/L Anion Gap 6 (3-11) BUN 16 (6-23) mg/dl Creatinine 1.03 (0.6-1.4) mg/dl Est Cr Clr Drug Dosing 58.1 ml/min eGFR 72.98 BUN/Creatinine Ratio 15.5 (10-20) Glucose 95 (70-99(Fasting)) mg/dl Calcium 8.9 (8.6-10.3) mg/dl Magnesium 1.9 (1.7-2.4) mg/dl Total Bilirubin 1.2 H (0.2-1.0) mg/dl AST 19 (13-39) U/L ALT 9 (7-52) U/L Alkaline Phosphatase 53 (34-104) U/L Total Protein 6.0 (6.0-8.3) gm/dl Albumin 3.7 (3.4-5.0) gm/dl Globulin 2.3 L (2.5-4.0) gm/dl Albumin/Globulin Ratio 1.6 (0.9-2) Lipase 26 (11-82) U/L Vitamin B12 319 (180-914) pg/ml TSH 1.996 (0.300-4.500) uIu/ml Urine Color Yellow Urine Appearance Clear (Clear) Urine pH 5.5 (4.5-7.5) Ur Specific [place] 1.023 (1.000-1.030) Urine Protein Negative (Negative) Urine Glucose (UA) Negative (Negative) Urine Ketones 1+ H (Negative) Urine Blood Negative (Negative) Urine Nitrite Negative (Negative) Urine Bilirubin Negative (Negative) Urine Urobilinogen Negative (Negative) Ur Leukocyte Esterase Negative (Negative) Urine Comment Administered Medications Sodium Chloride (Nss) 1,000 mls @ 80 mls/hr IV .[id number] [facility] Stop: 06/13/25 13:44 Last Admin: 06/10/25 15:24 Dose: 80 mls/hr Documented By: BARBARA Discontinued Medications Carbidopa/Levodopa (Carbidopa/Levodopa 25/100mg Tab) 1 tab PO ONE STA Stop: 06/10/25 13:53 Last Admin: 06/10/25 15:19 Dose: 1 tab Documented By: BARBARA Quetiapine Fumarate (Quetiapine Fumarate 25 Mg Tablet) 25 mg PO ONE STA Stop: 06/10/25 13:55 Last Admin: 06/10/25 15:19 Dose: 25 mg Documented By: BARBARA Imaging Data Radiologist's Impression: Head CT 06/10/25 10:21 CT SCAN OF THE BRAIN WITHOUT IV CONTRAST CLINICAL HISTORY: Confusion. Fall. COMPARISON STUDY: Head CT December 04, 2024. TECHNIQUE: Unenhanced axial CT scan of the brain was performed from the vertex to the skull base. A dose lowering technique was utilized adhering to the principles of ALARA. CT DOSE: 2338.07 mGy.cm FINDINGS: Brain parenchyma: No acute intracranial hemorrhage, midline shift or mass effect is present. Quarles-white matter differentiation is preserved. There are no extra- axial fluid collections. There are no findings to suggest acute dural sinus thrombosis or acute territorial infarct. White matter hypodensities are unchanged and favor small vessel disease. Ventricles, sulci, cisterns: There is no hydrocephalus. The basal cisterns are patent. Calvarium: There are no calvarial fractures. Sinuses and mastoids: The visualized paranasal sinuses are clear. The mastoid air cells are well pneumatized. Orbits: The bony orbits are grossly intact. IMPRESSION: 1. No acute intracranial findings. No change in appearance of the brain. 2. No calvarial fractures. ACT 112: Negative or not required by law. Electronically signed by: Ryan Khan M.D. 06/10/2025 11:39 AM Discharge Plan Visit Data Chief Complaint: Urinary Symptoms ED Provider: Liavn Rogers Discharge Problem: Delirium, Encephalopathy Patient Disposition: Admitted As Inpatient Condition: Fair Discharge Instructions Interventions: ED Discharge Assessment Last Done: 06/10/25 16:06
--- NOTE | 2025-06-10 11:41 | CT Scan Report ---
CT SCAN OF THE BRAIN WITHOUT IV CONTRAST CLINICAL HISTORY: Confusion. Fall. COMPARISON STUDY: Head CT December 04, 2024. TECHNIQUE: Unenhanced axial CT scan of the brain was performed from the vertex to the skull base. A dose lowering technique was utilized adhering to the principles of ALARA. CT DOSE: 2338.07 mGy.cm FINDINGS: Brain parenchyma: No acute intracranial hemorrhage, midline shift or mass effect is present. Quarles-whi te matter differentiation is preserved. There are no extra-axial fluid collections. There are no find ings to suggest acute dural sinus thrombosis or acute territorial infarct. White matter hypodensities are unchanged and favor small vessel disease. Ventricles, sulci, cisterns: There is no hydrocephalus. The basal cisterns are patent. Calvarium: There are no calvarial fractures. Sinuses and mastoids: The visualized paranasal sinuses are clear. The mastoid air cells are well pneu matized. Orbits: The bony orbits are grossly intact. IMPRESSION: 1. No acute intracranial findings. No change in appearance of the brain. 2. No calvarial fractures. ACT 112: Negative or not required by law. Electronically signed by: Ryan Khan M.D. 06/10/2025 11:39 AM
--- NOTE | 2025-06-10 12:05 | History & Physical Report ---
Date of Service June 10, 2025 Assessment & Plan (1) Altered mental status: (2) Dementia: (3) Parkinson's disease: Plan Patient is an 79-year-old male with past medical history significant for HLD, oropharyngeal dysphagia, chronic pulmonary aspiration, HTN, Parkinson's disease, dementia and hallucinations due to late onset dementia who presented to the ED via EMS due to concern for altered mental status. C/f altered mental status Severe dementia, Parkinson's disease Reportedly patient was agitated and "not acting like himself" per caregivers this morning. Patient with baseline severe dementia, currently living at home with his . Has caregivers throughout the day from [facility]. Patient only alert and oriented to self on exam, not visibly agitated. Appears unkempt, disheveled. Do not feel patient is necessarily altered. 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 Workup in the ED has been grossly unremarkable including labs, head CT and UA. Patient with an intermittent cough per neighbor at bedside, which has been ongoing since December. No other clear infectious signs or symptoms per neighbor. Was treated for UTI last week or the week before. Will check blood cultures, CXR as precautionary measure but do not feel there is an infectious etiology underlying at this time. Monitor off ABX. Will hold trazodone for now. Continue Seroquel, carbidopa-levodopa. Delirium precautions. PT/OT evaluations. Patient will ultimately likely require long-term placement ([facility] vs assisted-living). unable to care for him at home. History of oropharyngeal dysphagia as per records Previously evaluated by HEAD STOCK OPERATOR, recommended regular diet. Will trial easy to chew diet for now. If issues arise, will consult HEAD STOCK OPERATOR for swallow evaluation. HTN Continue losartan with hold parameters. DVT Prophylaxis: SCDs/TEDs only for now Code Status: DNR/DNI Clarified with the patient's /surrogate, who was being evaluated in the room next door in the ED. Has advanced care planning paperwork at home. PCP: Gloria Lopez MD Disposition: Admit to med/surg Patient seen in collaboration with Dr. Govea. Please see addendum. I spent a total of 65 minutes coordinating, documenting, and providing care for this patient excluding time spent in the performance of separately billed services or time spent by another provider/QHP. This included personally reviewing all current laboratories and imaging studies, medical reconciliation, outpatient chart review and discussion with specialists. This chart was completed in part utilizing Speech Voice Recognition Software. Grammatical errors, random word insertions, pronoun errors, and incomplete sentences are an occasional consequence of this system due to software limitations, ambient noise, and hardware issues. Any formal questions or concerns about the content, text, or information contained within the body of this dictation should be directly addressed to the provider for clarification. History of Present Illness Chief Complaint: C/f altered mental status, history of Parkinson's and dementia Primary Care Provider: Gloria Lopez MD Patient is an 79-year-old male with past medical history significant for HLD, or opharyngeal dysphagia, chronic pulmonary aspiration, HTN, Parkinson's disease, dementia and hallucinations due to late onset dementia who presented to the ED via EMS due to concern for altered mental status. History mostly obtained from the patient's neighbor at beside, discussion with ED provider and associated chart review. Patient A&O mostly to self, able to answer direct yes/no questioning but otherwise unable to provide any additional history. Patient currently living at home with his , Natividad. Patient with history of Parkinson's disease and dementia with history of hallucinations. Currently has caregivers throughout the day from [facility] per his neighbor. Over the past 2 weeks, the caregivers have seemingly been coming more frequently as the couple is requiring more assistance with ADLs. There was concern for altered mental status earlier today. Reportedly patient was more agitated, visually hallucinating and "not acting like himself" according to the caregivers from [facility]. Per his neighbor at bedside, he seems to acting at his baseline mentation level. Unclear when the patient was last bathed or eaten. Reportedly the patient has been falling multiple times at home. He has not been mentioning any complaints of pain per the neighbor, however, she only sees the couple every couple of days. When asked directly, he denies any pain. He recently completed a course of antibiotics last week for a UTI. Not currently mentioning any urinary complaints per the neighbor. No reported fevers. He reportedly has had an intermittent cough since he was treated for pneumonia back in December of this year. Unclear if this is productive. There is reportedly no local family members and the couple does not have any children. Per the neighbor, it seems as both the patient and his are requiring placement at this point. The patient's was recently diagnosed with uterine cancer and has "not been doing well" in terms of a functional status per the neighbor. Allergies Allergy/AdvReac Type Severity Reaction Status Date / Time bee venom protein (honey bee) Allergy Unknown Verified 12/04/24 09:55 lisinopril AdvReac Cough Verified 12/04/24 09:55 Home Medications Medication Instructions Recorded Confirmed Type carbidopa 25 mg-levodopa 100 mg 1 tab PO TID 04/01/21 06/10/25 History tablet losartan 50 mg tablet 25 mg PO QAM 04/01/21 06/10/25 History multivitamin 1 tab PO DAILY 04/01/21 06/10/25 History lorazepam 1 mg tablet 0.5 mg PO Q4H PRN Agitation/Sleep 06/10/25 06/10/25 History quetiapine 25 mg tablet See Rx Instructions .Route .COMPLEX 06/10/25 06/10/25 History trazodone 100 mg tablet 100 mg PO HS 06/10/25 06/10/25 History Past Med/Surg History Problem List Parkinson's disease Dementia Aspiration pneumonia due to saliva Hypomagnesemia (Acute) Elevated troponin (Acute) Parkinsons disease (Acute) Sepsis (Acute) Encephalopathy (Acute) Delirium Medical History Ambulatory dysfunction DVT prophylaxis Lung nodule Tinea cruris Acute delirium Altered mental status Hallucinations Confusion Hypertension Social History Smoking Status: Unknown if ever smoked Tobacco Type: Cigarettes Second Hand Exposure: No; Do You Dip or Chew Tobacco: No; Hx Alcohol Use: Yes Alcohol type: beer Hx Substance Use: No Preferred Language: Kiswahili Communication Ability: Impaired Buffer Copper Required: No Beliefs That Will Affect Care: None marital status: Current Living Situation: Spouse Feels Safe at Home: Yes Assistive Devices: Glasses Review of Systems Review of Systems: Unable to go through entire ROS with the patient due to his baseline mentation level. Physical Exam Physical Exam: General: Elderly M, unkempt and disheveled appearance, + bodily odor, A&O only to self Respiratory: Normal respiratory effort, CTAB (unable to follow commands in terms of deep inspiration), on RA Cardiovascular: RRR, normal peripheral pulses, trace LLE edema, no RLE edema Abdomen/GI: Active bowel sounds, soft, nondistended, nontender to palpation in all quadrants Extremities/Musculoskeletal: No cyanosis or clubbing, unable to test extremity strength, moves all extremities, + BUE resting tremor (h/o Parkinson's) Neurologic: No overt focal deficits Results & Data Results & Data Vital Signs (Past 12 Hours) Vital Signs Temp Pulse Pulse Resp BP BP Pulse Ox 06/10/25 11:06 82 16 154/90 H 96 06/10/25 09:47 80 18 133/94 96 06/10/25 09:20 82 06/10/25 09:16 95 06/10/25 09:01 37.5 C 80 22 142/86 H 95 O2 Del Method 06/10/25 11:06 Room Air 06/10/25 09:47 Room Air 06/10/25 09:20 06/10/25 09:16 Room Air 06/10/25 09:01 Room Air Laboratory Results Short CBC 06/10/25 Range/Units 09:10 WBC 9.86 (4.8-10.8) K/ul Hgb 15.1 (14.0-18.0) g/dl Hct 44.2 (42.0-52.0) % Plt Count 213 (130-400) K/uL BMP 06/10/25 09:10 Sodium 140 Potassium 4.0 Chloride 107 Carbon Dioxide 27 BUN 16 Creatinine 1.03 Glucose 95 Calcium 8.9 Liver Function 06/10/25 Range/Units 09:10 Total Bilirubin 1.2 H (0.2-1.0) mg/dl AST 19 (13-39) U/L ALT 9 (7-52) U/L Alkaline Phosphatase 53 (34-104) U/L Albumin 3.7 (3.4-5.0) gm/dl Urine 06/10/25 Range/Units 09:10 Urine Color Yellow Urine Appearance Clear (Clear) Urine pH 5.5 (4.5-7.5) Ur Specific [place] 1.023 (1.000-1.030) Urine Protein Negative (Negative) Urine Glucose (UA) Negative (Negative) Diagnostic Findings Head CT 06/10/25 10:21 CT SCAN OF THE BRAIN WITHOUT IV CONTRAST CLINICAL HISTORY: Confusion. Fall. COMPARISON STUDY: Head CT December 04, 2024. TECHNIQUE: Unenhanced axial CT scan of the brain was performed from the vertex to the skull base. A dose lowering technique was utilized adhering to the principles of ALARA. CT DOSE: 2338.07 mGy.cm FINDINGS: Brain parenchyma: No acute intracranial hemorrhage, midline shift or mass effect is present. Quarles-white matter differentiation is preserved. There are no extra- axial fluid collections. There are no findings to suggest acute dural sinus thrombosis or acute territorial infarct. White matter hypodensities are unchanged and favor small vessel disease. Ventricles, sulci, cisterns: There is no hydrocephalus. The basal cisterns are patent. Calvarium: There are no calvarial fractures. Sinuses and mastoids: The visualized paranasal sinuses are clear. The mastoid air cells are well pneumatized. Orbits: The bony orbits are grossly intact. IMPRESSION: 1. No acute intracranial findings. No change in appearance of the brain. 2. No calvarial fractures. ACT 112: Negative or not required by law. Electronically signed by: Ryan Khan M.D. 06/10/2025 11:39 AM Supervising Physician Co-Signing Physician Notes Patient seen and examined at bedside. Patient oriented to person only, does not know what is going on. Feels fine. Per caregivers patient agitated at home, has 24/7 care. also elderly per report. On exam, patient disheveled and appears poorly cared for (dirty, crusty eyes, very disheveled appearance, malnourished), oriented to self only. Hemodynamically stable, lab workup relatively unremarkable, creatinine WNL, no leukocytosis. Not agitated. Patient presenting from home with evidence of inability to care for self, likely 2/2 moderate to severe dementia with possible superimposed hyperactive delirium. Give thiamine, folic acid, check B12/TSH to finish metabolic workup. Maintenance fluids ordered. Limit anticholinergic medications, hold home prn benzos (does not appear to be chronic medication). If agitated during hospital stay, recommend downtitration of home Seroquel from tid, and consulting psychiatry for medication recommendations. PT/OT ordered for placement. Shower order placed and eye care ordered. I have seen and discussed the case with the collaborating advanced practitioner. I agree with the above H&P. I have reviewed and confirmed the patients medical history, the findings on physical examination, and the patients diagnosis and treatment plan with Ping GARCIA and agree with the information documented. I spent a total of 20 minutes coordinating, documenting, and providing care for this patient excluding time spent in the performance of separately billed services. All of the aforementioned completed outside of collaborating with the assigned advanced practitioner for a full treatment plan. I have reviewed the advanced practitioner's documentation, and I agree with, and take responsibility for the plan of care
--- NOTE | 2025-06-10 13:38 | XRay Report ---
XR chest 1V portable CLINICAL HISTORY: Cough COMPARISON STUDY: 12/05/2024 FINDINGS: Stable cardiomegaly without pulmonary vascular congestion. Evaluation of the left lung base is limited by the overlying cardiac silhouette. There is possible interval stranding at the left bas e. Otherwise the lungs remain aerated. IMPRESSION: Possible atelectasis versus early pneumonia left lung base. ACT 112: Negative or not required by law. Electronically signed by: Neftali Catalan M.D. 06/10/2025 1:37 PM
[2025-06-10 14:38] LABS: Thyroid Stimulating Hormone 1.996 uIu/ml (0.300-4.500)
[2025-06-10] MEDS: CARBIDOPA/LEVODOPA 25/100MG TAB PO STA (15:19)
[2025-06-10] MEDS: SODIUM CHLORIDE 0.9% 1,000 ML IV SCH (15:24)
[2025-06-10] MEDS ORDERED: ONDANSETRON INJ 2 MG/ML 2 ML VIAL IV PRN (16:05)
[2025-06-10] MEDS ORDERED: ALUMINUM/MAGNESIUM SUSP 30 ML UDC PO PRN (16:05)
[2025-06-10] MEDS ORDERED: MAGNESIUM HYDROXIDE SUSP 30 ML UDC PO PRN (16:05)
[2025-06-10] MEDS ORDERED: POLYETHYLENE (MIRALAX) 17 GM PACK PO PRN (16:05)
[2025-06-10 16:17] LABS: Magnesium 1.9 mg/dl (1.7-2.4)
[2025-06-10] MEDS ORDERED: INFLUENZA VACC TS2025-26(65y+)/PF (IIV3) 0.5mL Syr IM ONE (18:21)
[2025-06-10] MEDS: CARBIDOPA/LEVODOPA 25/100MG TAB PO SCH (20:28)
[2025-06-10] MEDS: METOPROLOL TARTRATE 25 MG TAB PO SCH (20:28)
[2025-06-11 07:27] LABS: Hematocrit (blood only) 41.0 % (42.0-52.0); Hemoglobin 14.4 g/dl (14.0-18.0); Mean Corpuscular Hemoglobin 32.7 pg (25.0-34.0); Mean Corpuscular Volume 93.0 fL (80.0-100.0); Platelet Count 199 K/uL (130-400); RDW Standard Deviation 43.1 fL (36.4-46.3); Red Blood Count 4.41 M/uL (4.70-6.10); White Blood Count 8.78 K/ul (4.8-10.8)
--- NOTE | 2025-06-11 07:41 | Hospitalist Progress Note ---
Date of Service June 11, 2025 Assessment & Plan (1) Altered mental status: (2) Dementia: (3) Parkinson's disease: Plan Patient is an 79-year-old male with past medical history significant for HLD, oropharyngeal dysphagia, chronic pulmonary aspiration, HTN, Parkinson's disease, dementia and hallucinations due to late onset dementia who presented to the ED on 06/10/2025 via EMS due to concern for altered mental status. Severe dementia Parkinson's disease Patient brought in with concern of AMS Workup grossly unremarkable including labs, UA, head CT Blood cultures pending Patient is A&Ox1 with intermittent agitation Likely progressive severe dementia or superimposed delirium Home trazodone and ativan on hold Continue seroquel and carbidopa-levodopa Delirium precautions PT/OT evaluations pending Ventricular tachycardia Patient has had several runs of vtach Unable to assess symptoms given patient cognitive status EKG revealed NSR with PVCs Started on metoprolol - continue Echo pending Monitor telemetry and consider Cardiology consult if worsens or becomes symptomatic History of oropharyngeal dysphagia as per records Previously evaluated by WEAPONS ELECTRICAL ENGINEERING OFFICER, recommended regular diet Will trial easy to chew diet for now If issues arise, will consult WEAPONS ELECTRICAL ENGINEERING OFFICER for swallow evaluation HTN Continue losartan DVT Prophylaxis: SCDs/TEDs Code Status: DNR/DNI PCP: Gloria Lopez MD Disposition: dc to facility *Patient was living at home with his and caregivers coming to the home. is being transferred to [facility] today for management of her own health condition. She is patient's POA and agreeable to patient being placed in a facility as she understands she can no longer care for him at home. Patient's brother, Wyatt, and neighbor, Brooke, are willing to help assist with coordination of placement. Patient's would like to be notified when he is accepted at a facility. Discussed case with Anabell hoskins.* Patient seen in collaboration with Dr. Lizarraga. Please see addendum. I spent a total of 60 minutes coordinating, documenting and providing care for this patient excluding time spent in the performance of separately billed services or time spent by another provider/QHP. Admission and Anticipated Discharge Date Admission Date: June 10, 2025 Supervising Physician Co-Signing Physician Notes Attending addendum: The patient was seen and examined in medical telemetry He has significant dementia and does not have any meaningful communication He remains stable without any apparent distress On examination Lying in bed without any apparent distress Afebrile and hemodynamically stable Chestclear to auscultation bilaterally heartS1-S2, regular Abdomenbenign Extremitiesno edema His admission labs, EKG and imaging studies reviewed Admitted with change in mental status and does not have any infection as of now Acute PE secondary to progressive dementia Will get PT and OT evaluation and case management involvement for safe discharge plan Agree with assessment plan as outlined above by JAVID Pegn and take the full responsibility of care in the hospital Dr Frederic Lizarraga Subjective Patient seen resting in bed Review of Systems Review of Systems: Unobtainable due to cognitive status Physical Exam Physical Exam: General/Psych: unkempt, laying in bed, NAD, opens eyes to name but not speaking, Head: normocephalic, atraumatic Neck: normal visual inspection, trachea midline Respiratory: normal respiratory effort, lungs clear to auscultation, no wheeze/rales/rhonchi, no accessory muscle use Cardiovascular: regular rate and rhythm, no murmur/rub/gallop Extremities: no cyanosis or clubbing, normal peripheral pulses, no BLE edema Abdomen/GI: normal bowel sounds, soft, nontender Neurologic/MSK: A+Ox1, motor strength 5/5, moves all extremities, tremors present in BUE Skin: no rashes, normal color, warm and dry Results & Data Results & Data Vital Signs (Past 12 Hours) Vital Signs Temp Pulse Pulse Resp BP Pulse Ox O2 Del Method 06/11/25 07:27 36.5 C 83 18 136/69 98 Room Air 06/11/25 01:03 78 16 108/65 96 Room Air 06/11/25 00:27 36.3 C L 80 20 151/76 H 97 Room Air 06/10/25 21:52 Room Air 06/10/25 21:44 72 06/10/25 19:52 36.3 C L 88 20 133/76 93 Room Air Laboratory Results Short CBC 06/11/25 Range/Units 06:59 WBC 8.78 (4.8-10.8) K/ul Hgb 14.4 (14.0-18.0) g/dl Hct 41.0 L (42.0-52.0) % Plt Count 199 (130-400) K/uL [facility] 06/11/25 06:59 Sodium 139 Potassium 4.1 Chloride 109 H Carbon Dioxide 25 BUN 14 Creatinine 0.96 Glucose 89 Calcium 8.3 L I have independently reviewed and interpreted patient's admitting labs including CBC, BMP, mag, phos. Medications Administered Current Inpatient Medications Acetaminophen (Acetaminophen 325 Mg Tab) 650 mg PO Q4H PRN PRN Reason: pain/fever Stop: 07/10/25 16:04 Carbidopa/Levodopa (Carbidopa/Levodopa 25/100mg Tab) 1 tab PO TID JM Stop: 07/10/25 20:59 Last Admin: 06/11/25 08:46 Dose: 1 tab Folic Acid (Folic Acid 1 Mg Tab) 1 mg PO QAM [facility] Stop: 07/11/25 08:59 Last Admin: 06/11/25 08:46 Dose: 1 mg Sodium Chloride (Nss) 1,000 mls @ 80 mls/hr IV .[id number] [facility] Stop: 06/13/25 13:44 Last Admin: 06/11/25 03:34 Dose: 80 mls/hr Losartan Potassium (Losartan Potassium 25 Mg Tab) 25 mg PO QAM [facility] Stop: 07/11/25 08:59 Last Admin: 06/11/25 08:46 Dose: 25 mg Metoprolol Tartrate (Metoprolol Tartrate 25 Mg Tab) 12.5 mg PO TID [facility] Stop: 07/10/25 20:59 Last Admin: 06/11/25 08:46 Dose: 12.5 mg Multivitamins (Multivitamin Tab) 1 tab PO QAM [facility] Stop: 07/11/25 08:59 Last Admin: 06/11/25 08:46 Dose: 1 tab Ondansetron HCl (Ondansetron Inj 2 Mg/Ml 2 Ml Vial) 4 mg IV Q6H PRN PRN Reason: Nausea Stop: 07/10/25 16:04 Polyethylene Glycol (Polyethylene (Miralax) 17 Gm Pack) 17 gm PO DAILY PRN PRN Reason: Constipation Stop: 07/10/25 16:04 Quetiapine Fumarate (Quetiapine Fumarate 25 Mg Tablet) 37.5 mg PO HS [facility] Stop: 07/10/25 20:59 Last Admin: 06/10/25 20:29 Dose: 37.5 mg Quetiapine Fumarate (Quetiapine Fumarate 25 Mg Tablet) 25 mg PO BID@09,14 [facility] Stop: 07/11/25 08:59 Last Admin: 06/11/25 08:47 Dose: 25 mg Thiamine HCl (Thiamine Hcl 100 Mg Tab) 100 mg PO QAM JM Stop: 07/11/25 08:59 Last Admin: 06/11/25 08:47 Dose: 100 mg
[2025-06-11 07:42] LABS: Anion Gap 5.0 (3-11); Blood Urea Nitrogen 14.0 mg/dl (6-23); Calcium 8.3 mg/dl (8.6-10.3); Carbon Dioxide 25.0 mmol/L (21-32); Chloride 109.0 mmol/L (98-107); Creatinine Clr Calc Pharmacy 62.3 ml/min; Glucose 89.0 mg/dl (70-99(Fasting)); Magnesium 1.8 mg/dl (1.7-2.4); Potassium 4.1 mmol/L (3.5-5.1); Sodium 139.0 mmol/L (136-145)
[2025-06-11] MEDS: MAGNESIUM SULFATE / D5W 1 GM/100 ML BAG IV SCH (08:38)
[2025-06-11] MEDS: LOSARTAN POTASSIUM 25 MG TAB PO SCH (08:46)
[2025-06-11] MEDS: MULTIVITAMIN TAB PO SCH (08:46)
[2025-06-11] MEDS: FOLIC ACID 1 MG TAB PO SCH (08:46)
[2025-06-11] MEDS: THIAMINE HCL 100 MG TAB PO SCH (08:47)
--- NOTE | 2025-06-11 13:41 | Electrocardiogram Report ---
Test Reason : Blood Pressure : */* mmHG Vent. Rate : 74 BPM Atrial Rate : 74 BPM P-R Int : 146 ms QRS Dur : 128 ms QT Int : 430 ms P-R-T Axes : 41 -35 101 degrees QTcB Int : 477 ms Sinus rhythm with occasional Premature ventricular complexes Left axis deviation Left bundle branch block Abnormal ECG When compared with ECG of 04-Dec-2024 08:40, No significant change was found Confirmed by Timmy Zuniga ([id number]) on 06/11/2025 1:41:02 PM Referred By: REFERRED SELF Confirmed By: Timmy Zuniga
--- NOTE | 2025-06-11 16:51 | XCELERA ---
[id number]
[2025-06-12 06:26] LABS: Hematocrit (blood only) 41.0 % (42.0-52.0); Hemoglobin 14.5 g/dl (14.0-18.0); Mean Corpuscular Hemoglobin 32.6 pg (25.0-34.0); Mean Corpuscular Volume 92.1 fL (80.0-100.0); Platelet Count 185 K/uL (130-400); RDW Standard Deviation 42.0 fL (36.4-46.3); Red Blood Count 4.45 M/uL (4.70-6.10); White Blood Count 7.50 K/ul (4.8-10.8)
[2025-06-12 07:01] LABS: Anion Gap 6.0 (3-11); Blood Urea Nitrogen 11.0 mg/dl (6-23); Calcium 8.0 mg/dl (8.6-10.3); Carbon Dioxide 23.0 mmol/L (21-32); Chloride 111.0 mmol/L (98-107); Creatinine Clr Calc Pharmacy 68.0 ml/min; Glucose 86.0 mg/dl (70-99(Fasting)); Magnesium 2.0 mg/dl (1.7-2.4); Potassium 3.8 mmol/L (3.5-5.1); Sodium 140.0 mmol/L (136-145)
--- NOTE | 2025-06-12 10:44 | Hospitalist Progress Note ---
Date of Service June 12, 2025 Assessment & Plan (1) Altered mental status: (2) Dementia: (3) Parkinson's disease: Plan Patient is an 79-year-old male with past medical history significant for HLD, oropharyngeal dysphagia, chronic pulmonary aspiration, HTN, Parkinson's disease, dementia and hallucinations due to late onset dementia who presented to the ED on 06/10/2025 via EMS due to concern for altered mental status. Severe dementia Parkinson's disease Patient brought in with concern of AMS Workup grossly unremarkable including labs, UA, head CT Blood cultures pending Patient is A&Ox1 with intermittent agitation Likely progressive severe dementia or superimposed delirium -> mentation improving since admission, more alert, cooperative Home trazodone and Ativan on hold Continue Seroquel and carbidopa-levodopa Delirium precautions PT/OT evaluated - recommending SNF rehab, CM working on placement Ventricular tachycardia EKG revealed NSR with PVCs Started on metoprolol tartrate 12.5mg TID - titrate as needed with borderline low BP 2D echo - preserved EF, grade 1 diastolic dysfunction, mild MR, mild TR, small pericardial effusions without signs of tamponade Tele reviewed- 10 beats of vtach noted on 06/11 at 16:48, has been in NSR in 80s since then, asymptomatic History of oropharyngeal dysphagia as per records Previously evaluated by GAME TRAPPER, recommended regular diet Will trial easy to chew diet for now If issues arise, will consult GAME TRAPPER for swallow evaluation HTN Continue losartan DVT Prophylaxis: SQ lovenox Code Status: DNR/DNI PCP: Gloria Lopez MD Disposition: dc to facility *Patient was living at home with his and caregivers coming to the home. is being transferred to [facility] today for management of her own health condition. She is patient's POA and agreeable to patient being placed in a facility as she understands she can no longer care for him at home. Patient's brother, Wyatt, and neighbor, Brooke, are willing to help assist with coordination of placement. Patient's would like to be notified when he is accepted at a facility. CM assisting with placement* Patient seen in collaboration with Dr. Lizarraga. I spent a total of 50 minutes coordinating, documenting and providing care for this patient excluding time spent in the performance of separately billed services or time spent by another provider/QHP. Admission and Anticipated Discharge Date Admission Date: June 10, 2025 Supervising Physician Co-Signing Physician Notes Attending addendum: The patient was seen and examined in medical telemetry He has significant dementia and does not have any meaningful communication He remains stable without any apparent distress On examination Lying in bed without any apparent distress Afebrile and hemodynamically stable Chestclear to auscultation bilaterally heartS1-S2, regular Abdomenbenign Extremitiesno edema His admission labs, EKG and imaging studies reviewed Admitted with change in mental status and does not have any infection as of now Acute PE secondary to progressive dementia ( misinterpreted by the dictation system.Please ignore 06/12/2025) Will get PT and OT evaluation and case management involvement for safe discharge plan Agree with assessment plan as outlined above by JAVID Peng and take the full responsibility of care in the hospital Dr Frederic Lizarraga 06/12/2025 Patient was seen and examined in medical telemetry unit He remains stable without any significant distress On examination Lying in bed without any apparent distress Remains hemodynamically stable and afebrile with unremarkable physical ex amination His labs and medications reviewed Presenting with acute change in mental status seems to be resolved Has significant dementia and is complicated by Parkinson disease Awaiting speech evaluation and placement following that Agree with assessment and plan as outlined above by Lourdes Kumar PA-C and take the full responsibility of care in the hospital Total time taken to document all of this was 10minutes DR Frederic Lizarraga Subjective Patient seen resting in bed, no acute changes overnight. ROS limited 2/2 patient's dementia. Per discussion with nurse, patient's mentation much improve today from yesterday. He is tolerating more food with nursing help. Review of Systems Review of Systems: Unobtainable due to cognitive status Physical Exam Physical Exam: Gen: WD/WN, NAD, soft spoken, difficult to understand but speaking more than yesterday, A&Ox1, BUE tremors HEENT: Normocephalic, atraumatic Lung: Clear to Auscultation bilaterally Heart: Regular rate Abdomen: Soft, NT, ND +BS x 4 Extremities: no edema Skin: Warm, no rash Results & Data Results & Data Vital Signs (Past 12 Hours) Vital Signs Temp Pulse Pulse Resp BP Pulse Ox O2 Del Method 06/12/25 08:47 36.4 C L 76 18 136/55 L 93 Room Air 06/12/25 07:37 70 06/12/25 00:30 36.6 C 72 12 140/81 97 Room Air Laboratory Results Short CBC 06/12/25 Range/Units 06:05 WBC 7.50 (4.8-10.8) K/ul Hgb 14.5 (14.0-18.0) g/dl Hct 41.0 L (42.0-52.0) % Plt Count 185 (130-400) K/uL BMP 06/12/25 06:05 Sodium 140 Potassium 3.8 Chloride 111 H Carbon Dioxide 23 BUN 11 Creatinine 0.88 Glucose 86 Calcium 8.0 L Diagnostic Findings Head CT 06/10/25 10:21 CT SCAN OF THE BRAIN WITHOUT IV CONTRAST CLINICAL HISTORY: Confusion. Fall. COMPARISON STUDY: Head CT December 04, 2024. TECHNIQUE: Unenhanced axial CT scan of the brain was performed from the vertex to the skull base. A dose lowering technique was utilized adhering to the principles of ALARA. CT DOSE: 2338.07 mGy.cm FINDINGS: Brain parenchyma: No acute intracranial hemorrhage, midline shift or mass effect is present. Quarles-white matter differentiation is preserved. There are no extra- axial fluid collections. There are no findings to suggest acute dural sinus thrombosis or acute territorial infarct. White matter hypodensities are unchanged and favor small vessel disease. Ventricles, sulci, cisterns: There is no hydrocephalus. The basal cisterns are patent. Calvarium: There are no calvarial fractures. Sinuses and mastoids: The visualized paranasal sinuses are clear. The mastoid air cells are well pneumatized. Orbits: The bony orbits are grossly intact. IMPRESSION: 1. No acute intracranial findings. No change in appearance of the brain. 2. No calvarial fractures. ACT 112: Negative or not required by law. Electronically signed by: Ryan Khan M.D. 06/10/2025 11:39 AM Chest X-Ray 06/10/25 12:42 XR chest 1V portable CLINICAL HISTORY: Cough COMPARISON STUDY: 12/05/2024 FINDINGS: Stable cardiomegaly without pulmonary vascular congestion. Evaluation of the left lung base is limited by the overlying cardiac silhouette. There is possible interval stranding at the left base. Otherwise the lungs remain aerated. IMPRESSION: Possible atelectasis versus early pneumonia left lung base. ACT 112: Negative or not required by law. Electronically signed by: Neftali Catalan M.D. 06/10/2025 1:37 PM
[2025-06-12] MEDS: ENOXAPARIN INJ 40 MG/0.4 ML SYR SQ SCH (14:48)
[2025-06-12] MEDS: METOPROLOL SUCC 25MG EXT REL TAB PO SCH (20:16)
[2025-06-12] MEDS: ERYTHROMYCIN OP OINT 5 MG/GM 3.5 GM TUBE OPB SCH (20:18)
[2025-06-12] MEDS: METOPROLOL TARTRATE 1 MG/ML VIAL IV STA (22:12)
[2025-06-13] MEDS: METOPROLOL SUCC 25MG EXT REL TAB PO SCH (08:03)
[2025-06-13 08:05] LABS: Hematocrit (blood only) 43.8 % (42.0-52.0); Hemoglobin 15.3 g/dl (14.0-18.0); Mean Corpuscular Hemoglobin 32.3 pg (25.0-34.0); Mean Corpuscular Volume 92.6 fL (80.0-100.0); Platelet Count 193 K/uL (130-400); RDW Standard Deviation 43.0 fL (36.4-46.3); Red Blood Count 4.73 M/uL (4.70-6.10); White Blood Count 7.83 K/ul (4.8-10.8)
[2025-06-13 08:31] LABS: Anion Gap 7.0 (3-11); Blood Urea Nitrogen 11.0 mg/dl (6-23); Calcium 8.6 mg/dl (8.6-10.3); Carbon Dioxide 25.0 mmol/L (21-32); Chloride 109.0 mmol/L (98-107); Creatinine Clr Calc Pharmacy 65.0 ml/min; Glucose 83.0 mg/dl (70-99(Fasting)); Magnesium 1.9 mg/dl (1.7-2.4); Potassium 4.4 mmol/L (3.5-5.1); Sodium 141.0 mmol/L (136-145)
--- NOTE | 2025-06-13 10:23 | Hospitalist Progress Note ---
Date of Service June 13, 2025 Assessment & Plan (1) Altered mental status: (2) Dementia: (3) Parkinson's disease: Plan Patient is an 79-year-old male with past medical history significant for HLD, oropharyngeal dysphagia, chronic pulmonary aspiration, HTN, Parkinson's disease, dementia and hallucinations due to late onset dementia who presented to the ED on 06/10/2025 via EMS due to concern for altered mental status. Severe dementia Parkinson's disease Patient brought in with concern of AMS Workup grossly unremarkable including labs, UA, head CT Blood cultures pending Patient is A&Ox1 with intermittent agitation Likely progressive severe dementia or superimposed delirium -> mentation improving since admission, more alert, cooperative Home trazodone and Ativan on hold Continue Seroquel and carbidopa-levodopa Delirium precautions PT/OT evaluated - recommending SNF rehab, CM working on placement Ventricular tachycardia EKG revealed NSR with PVCs Started on metoprolol tartrate 12.5mg TID -> transitioned to Toprol XL 25mg BID 2D echo - preserved EF, grade 1 diastolic dysfunction, mild MR, mild TR, small pericardial effusions without signs of tamponade Tele reviewed- 9 beats of vtach noted on 06/12 at 2100, has been in NSR in 80s since then, asymptomatic, lytes WNL Observe on tele for additional night with beta maya change as above History of oropharyngeal dysphagia as per records Previously evaluated by HALL DIRECTOR, recommended regular diet Will trial easy to chew diet for now If issues arise, will consult HALL DIRECTOR for swallow evaluation HTN Continue losartan DVT Prophylaxis: SQ lovenox Code Status: DNR/DNI PCP: Gloria Lopez MD Disposition: dc to facility *Patient was living at home with his and caregivers coming to the home. [place] [facility] [place] management of her own health condition. She is patient's POA and agreeable to patient being placed in a facility as she understands she can no longer care for him at home. Patient's brother, Wyatt, and neighbor, Brooke, are willing to help assist with coordination of placement. Patient's would like to be notified when he is accepted at a facility. CM assisting with placement* Attempted to call brother Wyatt this afternoon but no answer. Patient seen in collaboration with Dr. Lizarraga. I spent a total of 45 minutes coordinating, documenting and providing care for this patient excluding time spent in the performance of separately billed services or time spent by another provider/QHP. Admission and Anticipated Discharge Date Admission Date: June 10, 2025 Supervising Physician Co-Signing Physician Notes Attending addendum: The patient was seen and examined in medical telemetry He has significant dementia and does not have any meaningful communication He remains stable without any apparent distress On examination Lying in bed without any apparent distress Afebrile and hemodynamically stable Chestclear to auscultation bilaterally heartS1-S2, regular Abdomenbenign Extremitiesno edema His admission labs, EKG and imaging studies reviewed Admitted with change in mental status and does not have any infection as of now Acute PE secondary to progressive dementia (misinterpreted by the dictation system.Please ignore 06/12/2025) Will get PT and OT evaluation and case management involvement for safe discharge plan Agree with assessment plan as outlined above by JAVID Peng and take the full responsibility of care in the hospital Dr Frederic Lizarraga 06/12/2025 Patient was seen and examined in medical telemetry unit He remains stable without any significant distress On examination Lying in bed without any apparent distress Remains hemodynamically stable and afebrile with unremarkable physical examination His labs and medications reviewed Presenting with acute change in mental status seems to be resolved Has significant dementia and is complicated by Parkinson disease Awaiting speech evaluation and placement following that Agree with assessment and plan as outlined above by Lourdes Kumar PA-C and take the full responsibility of care in the hospital Total time taken to document all of this was 10minutes DR Frederic Lizarraga 06/13/2025 The patient was seen and examined in medical telemetry unit He remains stable and without any distress at rest Noted to have 8 beats of V. tach last night without any symptoms On examination Lying in bed without any apparent distress Remains hemodynamically stable His labs, EKG and imaging studies reviewed His mental status seems to be at his baseline Significant dementia with Parkinson disease and almost bedbound and needs help with ADLs Agree with assessment plan as outlined above by Lourdes Kumar PA-C and take the full responsibility of care in the hospital Total time taken to document all of this was [address] Frederic Lizarraga Subjective Patient seen resting in bed, cooperative with pills this morning. ROS limited 2/2 patient's dementia. Eyes appeared more injected, tearing easily last evening, notified by RN. Started erythromycin oimtment with improvement today. Review of Systems Review of Systems: Unable to go through entire ROS with the patient due to his baseline mentation level. Physical Exam Physical Exam: Gen: WD/WN, NAD, soft spoken, difficult to understand but speaking more than yesterday, A&Ox1, BUE tremors HEENT: Normocephalic, atraumatic, + injected conjunctiva bilaterally, improved from last evening per nursing Lung: Clear to Auscultation but diminished at bases Heart: Regular rate Abdomen: Soft, NT, ND +BS x 4 Extremities: no edema Skin: Warm, no rash Results & Data Results & Data Vital Signs (Past 12 Hours) Vital Signs Temp Pulse Pulse Resp BP BP Pulse Ox 06/13/25 08:23 36.4 C L 65 19 107/69 97 06/13/25 03:00 36.3 C L 69 14 154/77 H 93 06/12/25 22:57 36.2 C L 66 12 102/55 L 100 O2 Del Method 06/13/25 08:23 Room Air 06/13/25 03:00 Room Air 06/12/25 22:57 Room Air Laboratory Results Gen: WD/WN, NAD, soft spoken, difficult to understand but speaking more than yesterday, A&Ox1, BUE tremors HEENT: Normocephalic, atraumatic Lung: Clear to Auscultation bilaterally Heart: Regular rate Abdomen: Soft, NT, ND +BS x 4 Extremities: no edema Skin: Warm, no rash Diagnostic Findings Head CT 06/10/25 10:21 CT SCAN OF THE BRAIN WITHOUT IV CONTRAST CLINICAL HISTORY: Confusion. Fall. COMPARISON STUDY: Head CT December 04, 2024. TECHNIQUE: Unenhanced axial CT scan of the brain was performed from the vertex to the skull base. A dose lowering technique was utilized adhering to the principles of ALARA. CT DOSE: 2338.07 mGy.cm FINDINGS: Brain parenchyma: No acute intracranial hemorrhage, midline shift or mass effect is present. Quarles-white matter differentiation is preserved. There are no extra- axial fluid collections. There are no findings to suggest acute dural sinus thrombosis or acute territorial infarct. White matter hypodensities are unchanged and favor small vessel disease. Ventricles, sulci, cisterns: There is no hydrocephalus. The basal cisterns are patent. Calvarium: There are no calvarial fractures. Sinuses and mastoids: The visualized paranasal sinuses are clear. The mastoid air cells are well pneumatized. Orbits: The bony orbits are grossly intact. IMPRESSION: 1. No acute intracranial findings. No change in appearance of the brain. 2. No calvarial fractures. ACT 112: Negative or not required by law. Electronically signed by: Ryan Khan M.D. 06/10/2025 11:39 AM Chest X-Ray 06/10/25 12:42 XR chest 1V portable CLINICAL HISTORY: Cough COMPARISON STUDY: 12/05/2024 FINDINGS: Stable cardiomegaly without pulmonary vascular congestion. Evaluation of the left lung base is limited by the overlying cardiac silhouette. There is possible interval stranding at the left base. Otherwise the lungs remain aerated. IMPRESSION: Possible atelectasis versus early pneumonia left lung base. ACT 112: Negative or not required by law. Electronically signed by: Neftali Catalan M.D. 06/10/2025 1:37 PM
[2025-06-13] MEDS: ACETAMINOPHEN 325 MG TAB PO PRN (20:11)
--- NOTE | 2025-06-13 21:58 | Electrocardiogram Report ---
Test Reason : Blood Pressure : */* mmHG Vent. Rate : 72 BPM Atrial Rate : 72 BPM P-R Int : 142 ms QRS Dur : 130 ms QT Int : 446 ms P-R-T Axes : 31 -17 86 degrees QTcB Int : 488 ms Sinus rhythm with frequent Premature ventricular complexes Left bundle branch block Abnormal ECG When compared with ECG of 11-Jun-2025 09:48, No significant change was found Confirmed by Bill Torres ([id number]) on 06/13/2025 9:58:44 PM Referred By: REFERRED SELF Confirmed By: Bill Torres
--- NOTE | 2025-06-14 08:16 | Hospitalist Progress Note ---
Date of Service June 14, 2025 Assessment & Plan (1) Altered mental status: (2) Dementia: (3) Parkinson's disease: Plan Patient is an 79-year-old male with past medical history significant for HLD, oropharyngeal dysphagia, chronic pulmonary aspiration, HTN, Parkinson's disease, dementia and hallucinations due to late onset dementia who presented to the ED on 06/10/2025 via EMS due to concern for altered mental status. Severe dementia Parkinson's disease Patient brought in with concern of AMS Workup grossly unremarkable including labs, UA, head CT Blood cultures pending Patient is A&Ox1 with intermittent agitation Likely progressive severe dementia or superimposed delirium -> mentation improving since admission, more alert, cooperative Home trazodone and Ativan on hold Continue Seroquel and carbidopa-levodopa Delirium precautions PT/OT evaluated - recommending SNF rehab, CM working on placement Ventricular tachycardia EKG revealed NSR with PVCs Started on metoprolol tartrate 12.5mg TID -> transitioned to Toprol XL 25mg BID 2D echo - preserved EF, grade 1 diastolic dysfunction, mild MR, mild TR, small pericardial effusions without signs of tamponade Tele reviewed- 9 beats of vtach noted on 06/12 at 2100, has been in NSR in 80s since then, asymptomatic, lytes WNL Stable for downgrade to med surg today Possible conjunctivitis Continue erythromycin ointment History of oropharyngeal dysphagia as per records Previously evaluated by DIRECTOR CORRECTIONAL AGENCY, recommended regular diet Will trial easy to chew diet for now If issues arise, will consult DIRECTOR CORRECTIONAL [employer]ENC[employer] for swallow evaluation HTN Continue losartan DVT Prophylaxis: SQ lovenox Code Status: DNR/DNI PCP: Gloria Lopez MD Disposition: dc to facility *Patient was living at home with his and caregivers coming to the home. is being transferred to [facility] [place] for management of her own health condition. She is patient's POA and agreeable to patient being placed in a facility as she understands she can no longer care for him at home. Patient's brother, Wyatt, and neighbor, Brooke, are willing to help assist with coordination of placement. Patient's would like to be notified when he is accepted at a facility. CM assisting with placement* Patient seen in collaboration with Dr. Lizarraga. Please see addendum. I spent a total of 40 minutes coordinating, documenting and providing care for this patient excluding time spent in the performance of separately billed services or time spent by another provider/QHP. Admission and Anticipated Discharge Date Admission Date: June 10, 2025 Supervising Physician Co-Signing Physician Notes Attending addendum: The patient was seen and examined in medical telemetry He has significant dementia and does not have any meaningful communication He remains stable without any apparent distress On examination Lying in bed without any apparent distress Afebrile and hemodynamically stable Chestclear to auscultation bilaterally heartS1-S2, regular Abdomenbenign Extremitiesno edema His admission labs, EKG and imaging studies reviewed Admitted with change in mental status and does not have any infection as of now Acute PE secondary to progressive dementia (misinterpreted by the dictation system.Please ignore 06/12/2025) Will get PT and OT evaluation and case management involvement for safe discharge plan Agree with assessment plan as outlined above by JAVID Peng and take the full responsibility of care in the hospital Dr Frederic Lizarraga 06/12/2025 Patient was seen and examined in medical telemetry unit He remains stable without any significant distress On examination Lying in bed without any apparent distress Remains hemodynamically stable and afebrile with unremarkable physical examination His labs and medications reviewed Presenting with acute change in mental status seems to be resolved Has significant dementia and is complicated by Parkinson disease Awaiting speech evaluation and placement following that Agree with assessment and plan as outlined above by Lourdes Kumar PA-C and take the full responsibility of care in the hospital Total time taken to document all of this was 10minutes DR Frederic Lizarraga 06/13/2025 The patient was seen and examined in medical telemetry unit He remains stable and without any distress at rest Noted to have 8 beats of V. tach last night without any symptoms On examination Lying in bed without any apparent distress Remains hemodynamically stable His labs, EKG and imaging studies reviewed His mental status seems to be at his baseline Significant dementia with Parkinson disease and almost bedbound and needs help with ADLs Agree with assessment plan as outlined above by Lourdes Kumar PA-C and take the full responsibility of care in the hospital Total time taken to document all of this was [address] Frederic Lizarraga 06/14/2025 The patient was seen and examined in medical telemetry unit He remains stable and no more episodes of V. tach/ectopics Does not have any acute distress and lying in bed comfortably Systemic examination remained unremarkable He is labs and medications reviewed Agree with assessment and plan as outlined above by JAVID Peng and take the full responsibility of care in the Total time taken in documenting all of this was [address] Frederic Lizarraga Subjective Patient seen sitting up in bed Denies pain but additional ROS limited by cognitive status Review of Systems Review of Systems: Unobtainable due to cognitive status Physical Exam Physical Exam: General/Psych: unkempt, sitting up in bed, NAD, mumbling under breath Head: normocephalic, atraumatic Neck: normal visual inspection, trachea midline Respiratory: normal respiratory effort, lungs clear to auscultation, no wheeze/rales/rhonchi, no accessory muscle use Cardiovascular: regular rate and rhythm, no murmur/rub/gallop Extremities: no cyanosis or clubbing, normal peripheral pulses, no BLE edema Abdomen/GI: normal bowel sounds, soft, nontender Neurologic/MSK: A+Ox1, motor strength 5/5, moves all extremities Skin: no rashes, normal color, warm and dry Results & Data Results & Data Vital Signs (Past 12 Hours) Vital Signs Temp Pulse Pulse Resp BP Pulse Ox O2 Del Method 06/14/25 07:41 36.4 C L 64 154/68 H 96 Room Air 06/14/25 02:57 65 18 118/71 06/13/25 23:42 64 Laboratory Results Short CBC 06/14/25 Range/Units 09:17 WBC 6.67 (4.8-10.8) K/ul Hgb 14.7 (14.0-18.0) g/dl Hct 43.4 (42.0-52.0) % Plt Count 203 (130-400) K/uL BMP 06/14/25 09:17 Sodium 140 Potassium 3.9 Chloride 107 Carbon Dioxide 24 BUN 12 Creatinine 0.85 Glucose 128 H Calcium 8.4 L I have independently reviewed and interpreted patient's labs including CBC, BMP, Mag, Phos. Medications Administered Current Inpatient Medications Acetaminophen (Acetaminophen 325 Mg Tab) 650 mg PO Q4H PRN PRN Reason: pain/fever Stop: 07/10/25 16:04 Last Admin: 06/13/25 20:11 Dose: 650 mg Carbidopa/Levodopa (Carbidopa/Levodopa 25/100mg Tab) 1 tab PO TID JM Stop: 07/10/25 20:59 Last Admin: 06/14/25 07:29 Dose: 1 tab Enoxaparin Sodium (Enoxaparin Inj 40 Mg/0.4 Ml Syr) 40 mg SQ Q24H [facility] Stop: 07/12/25 13:29 Last Admin: 06/13/25 14:01 Dose: 40 mg Erythromycin (Erythromycin Op Oint 5 Mg/Gm 3.5 Gm Tube) 1 appln OPB QID JM Stop: 06/22/25 20:59 Last Admin: 06/14/25 07:31 Dose: 1 appln Folic Acid (Folic Acid 1 Mg Tab) 1 mg PO QAM [facility] Stop: 07/11/25 08:59 Last Admin: 06/14/25 07:29 Dose: 1 mg Magnesium Sulfate/Dextrose (Magnesium Sulfate / D5w) 1 gm in 100 mls @ 50 mls/hr IV Q2H [facility] Stop: 06/14/25 11:44 Last Admin: 06/14/25 08:45 Dose: 50 mls/hr Losartan Potassium (Losartan Potassium 25 Mg Tab) 25 mg PO QAM [facility] Stop: 07/11/25 08:59 Last Admin: 06/14/25 07:31 Dose: 25 mg Metoprolol Succinate (Metoprolol Succ 25mg Ext Rel Tab) 25 mg PO BID [facility] Stop: 07/13/25 08:59 Last Admin: 06/14/25 07:29 Dose: 25 mg Multivitamins (Multivitamin Tab) 1 tab PO QAM [facility] Stop: 07/11/25 08:59 Last Admin: 06/14/25 07:29 Dose: 1 tab Ondansetron HCl (Ondansetron Inj 2 Mg/Ml 2 Ml Vial) 4 mg IV Q6H PRN PRN Reason: Nausea Stop: 07/10/25 16:04 Polyethylene Glycol (Polyethylene (Miralax) 17 Gm Pack) 17 gm PO DAILY PRN PRN Reason: Constipation Stop: 07/10/25 16:04 Quetiapine Fumarate (Quetiapine Fumarate 25 Mg Tablet) 37.5 mg PO HS [facility] Stop: 07/10/25 20:59 Last Admin: 06/13/25 20:10 Dose: 37.5 mg Quetiapine Fumarate (Quetiapine Fumarate 25 Mg Tablet) 25 mg PO BID@ [facility] Stop: 07/11/25 08:59 Last Admin: 06/14/25 07:30 Dose: 25 mg Thiamine HCl (Thiamine Hcl 100 Mg Tab) 100 mg PO [facility] Stop: 07/11/25 08:59 Last Admin: 06/14/25 07:30 Dose: 100 mg
[2025-06-14] MEDS: MAGNESIUM SULFATE / D5W 1 GM/100 ML BAG IV SCH (08:45)
[2025-06-14 09:47] LABS: Hematocrit (blood only) 43.4 % (42.0-52.0); Hemoglobin 14.7 g/dl (14.0-18.0); Mean Corpuscular Hemoglobin 31.3 pg (25.0-34.0); Mean Corpuscular Volume 92.3 fL (80.0-100.0); Platelet Count 203 K/uL (130-400); RDW Standard Deviation 42.5 fL (36.4-46.3); Red Blood Count 4.70 M/uL (4.70-6.10); White Blood Count 6.67 K/ul (4.8-10.8)
[2025-06-14 10:01] LABS: Anion Gap 9.0 (3-11); Blood Urea Nitrogen 12.0 mg/dl (6-23); Calcium 8.4 mg/dl (8.6-10.3); Carbon Dioxide 24.0 mmol/L (21-32); Chloride 107.0 mmol/L (98-107); Creatinine Clr Calc Pharmacy 70.4 ml/min; Glucose 128.0 mg/dl (70-99(Fasting)); Magnesium 2.0 mg/dl (1.7-2.4); Potassium 3.9 mmol/L (3.5-5.1); Sodium 140.0 mmol/L (136-145)
[2025-06-14 15:09] VITALS: RESP 18
[2025-06-15 07:52] VITALS: TEMP 97.3; O2SAT 95
--- NOTE | 2025-06-15 08:16 | Hospitalist Progress Note ---
Date of Service June 15, 2025 Assessment & Plan (1) Altered mental status: (2) Dementia: (3) Parkinson's disease: Plan Patient is an 79-year-old male with past medical history significant for HLD, oropharyngeal dysphagia, chronic pulmonary aspiration, HTN, Parkinson's disease, dementia and hallucinations due to late onset dementia who presented to the ED on 06/10/2025 via EMS due to concern for altered mental status. Severe dementia Parkinson's disease Patient brought in with concern of AMS Workup grossly unremarkable including labs, UA, head CT Blood cultures pending Patient is A&Ox1 with intermittent agitation Likely progressive severe dementia or superimposed delirium -> mentation improving since admission, more alert, cooperative Home trazodone and Ativan on hold Continue Seroquel and carbidopa-levodopa Delirium precautions PT/OT recommending SNF, CM working on placement Ventricular tachycardia EKG revealed NSR with PVCs Started on metoprolol tartrate 12.5mg TID -> transitioned to Toprol XL 25mg BID 2D echo - preserved EF, grade 1 diastolic dysfunction, mild MR, mild TR, small pericardial effusions without signs of tamponade Tele reviewed- 9 beats of vtach noted on 06/12 at 2100, has been in NSR in 80s since then, asymptomatic, lytes WNL Discontinued cardiac nurse practitioner on 06/14 Possible conjunctivitis Continue erythromycin ointment History of oropharyngeal dysphagia as per records Previously evaluated by DIMPLING MACHINE OPERATOR, recommended regular diet Will trial easy to chew diet for now If issues arise, will consult DIMPLING MACHINE OPERATOR for swallow evaluation HTN Continue losartan DVT Prophylaxis: SQ lovenox Code Status: DNR/DNI PCP: Gloria Lopez MD Disposition: dc to facility when bed available *Patient was living at home with his and caregivers coming to the home. is being transferred to [facility] [place] for management of her own health condition. She is patient's POA and agreeable to patient being placed in a facility as she understands she can no longer care for him at home. Patient's brother, Wyatt, and neighbor, Brooke, are willing to help assist with coordination of placement. Patient's would like to be notified when he is accepted at a facility. CM assisting with placement* Patient seen in collaboration with Dr. Lizarraga. Please see addendum. I spent a total of 40 minutes coordinating, documenting and providing care for this patient excluding time spent in the performance of separately billed services or time spent by another provider/QHP. Admission and Anticipated Discharge Date Admission Date: June 10, 2025 Physical Exam Physical Exam: General/Psych: unkempt, sitting up in bed, NAD, mumbling under breath Head: normocephalic, atraumatic Neck: normal visual inspection, trachea midline Respiratory: normal respiratory effort, lungs clear to auscultation, no wheeze/rales/rhonchi, no accessory muscle use Cardiovascular: regular rate and rhythm, no murmur/rub/gallop Extremities: no cyanosis or clubbing, normal peripheral pulses, no BLE edema Abdomen/GI: normal bowel sounds, soft, nontender Neurologic/MSK: A+Ox1, motor strength 5/5, moves all extremities Skin: no rashes, normal color, warm and dry Results & Data Results & Data Vital Signs (Past 12 Hours) Vital Signs Temp Pulse Pulse Resp BP Pulse Ox O2 Del Method 06/15/25 07:51 36.3 C L 70 18 136/73 95 Room Air 06/14/25 23:05 37.1 C 74 18 153/78 H 98 Room Air 06/14/25 20:32 36.5 C 74 18 131/78 95 Room Air Laboratory Results Short CBC 06/14/25 Range/Units 09:17 WBC 6.67 (4.8-10.8) K/ul Hgb 14.7 (14.0-18.0) g/dl Hct 43.4 (42.0-52.0) % Plt Count 203 (130-400) K/uL BMP 06/14/25 09:17 Sodium 140 Potassium 3.9 Chloride 107 Carbon Dioxide 24 BUN 12 Creatinine 0.85 Glucose 128 H Calcium 8.4 L I have independently reviewed and interpreted patient's labs including CBC, BMP, Mag.
--- NOTE | 2025-06-15 10:42 | Discharge Summary ---
Discharge Summary Date of Service June 15, 2025 Principal Dx & Hospital Course #1 = Principal Diagnosis (1) Altered mental status: (2) Dementia: (3) Parkinson's disease: Plan Patient is an 79-year-old male with past medical history significant for HLD, oropharyngeal dysphagia, chronic pulmonary aspiration, HTN, Parkinson's disease, dementia and hallucinations due to late onset dementia who presented to the ED on 06/10/2025 via EMS due to concern for altered mental status. *Patient was living at home with his and had caregivers coming to the home. Patient is active with hospice. Patient's is currently hospitalized herself and gave permission for patient's brother to make placement decisions. He was agreeable to accepting LTC bed at [facility]. He is working on getting POA in place for both of them, likely will be their neighbor.* Severe dementia Parkinson's disease Patient brought in with concern of AMS from home caregivers Workup grossly unremarkable including labs, UA, head CT Blood cultures prelim no growth in 48 hours - final results pending Patient is A&Ox1 but alert and cooperative Likely progressive severe dementia or superimposed delirium Discontinued home trazodone Continue Seroquel, carbidopa-levodopa, ativan as needed (pt has not needed any PRNs in hospital) Started on thiamine and folic acid Ventricular tachycardia While on telemetry, patient had several short runs of vtach, asymptomatic EKG revealed NSR with frequent PVCs Echo revealed preserved EF, grade 1 diastolic dysfunction, mild MR, mild TR, small pericardial effusions without signs of tamponade Started on metoprolol succinate and no recurrence of vtach Possible conjunctivitis Continue erythromycin ointment until 06/19/2024 HTN Continue losartan Patient seen in collaboration with Dr. Lizarraga. Please see addendum. Notes For Next Care Provider 79 year old male with dementia who was admitted for concern of altered mental status. Workup unremarkable. Ultimately placed at LTC as he can no longer be cared for in the home setting. Medication Changes From Visit Start thiamine 100mg qam and folic acid 1mg qam Start metoprolol succinate 25mg bid Stop trazodone Admission HPI Per Admitting Provider Patient is an 79-year-old male with past medical history significant for HLD, oropharyngeal dysphagia, chronic pulmonary aspiration, HTN, Parkinson's disease, dementia and hallucinations due to late onset dementia who presented to the ED via EMS due to concern for altered mental status. History mostly obtained from the patient's neighbor at beside, discussion with ED provider and associated chart review. Patient A&O mostly to self, able to answer direct yes/no questioning but otherwise unable to provide any additional history. Patient currently living at home with his , Natividad. Patient with history of Parkinson's disease and dementia with history of hallucinations. Currently has caregivers throughout the day from [employer] per his neighbor. Over the past 2 weeks, the caregivers have seemingly been coming more frequently as the couple is requiring more assistance with ADLs. There was concern for altered mental status earlier today. Reportedly patient was more agitated, visually hallucinating and "not acting like himself" according to the caregivers from [facility] [employer]. Per his neighbor at bedside, he seems to acting at his baseline mentation level. Unclear when the patient was last bathed or eaten. Reportedly the patient has been falling multiple times at home. He has not been mentioning any complaints of pain per the neighbor, however, she only sees the couple every couple of days. When asked directly, he denies any pain. He recently completed a course of antibiotics last week for a UTI. Not currently mentioning any urinary complaints per the neighbor. No reported fevers. He reportedly has had an intermittent cough since he was treated for pneumonia back in December of this year. Unclear if this is productive. There is reportedly no local family members and the couple does not have any children. Per the neighbor, it seems as both the patient and his are requiring placement at this point. The patient's was recently diagnosed with uterine cancer and has "not been doing well" in terms of a functional status per the neighbor. Admission Exam Per Admitting Provider General: Elderly M, unkempt and disheveled appearance, + bodily odor, A&O only to self Respiratory: Normal respiratory effort, CTAB (unable to follow commands in terms of deep inspiration), on RA Cardiovascular: RRR, normal peripheral pulses, trace LLE edema, no RLE edema Abdomen/GI: Active bowel sounds, soft, nondistended, nontender to palpation in all quadrants Extremities/Musculoskeletal: No cyanosis or clubbing, unable to test extremity strength, moves all extremities, + BUE resting tremor (h/o Parkinson's) Neurologic: No overt focal deficits Discharge Exam General/Psych: unkempt, sitting up in bed, NAD, mumbling under breath Head: normocephalic, atraumatic Neck: normal visual inspection, trachea midline Respiratory: normal respiratory effort, lungs clear to auscultation, no wheeze/rales/rhonchi, no accessory muscle use Cardiovascular: regular rate and rhythm, no murmur/rub/gallop Extremities: no cyanosis or clubbing, normal peripheral pulses, no BLE edema Abdomen/GI: normal bowel sounds, soft, nontender Neurologic/MSK: A+Ox1, motor strength 5/5, moves all extremities Skin: no rashes, normal color, warm and dry Updated Medication List Medication Instructions Recorded Confirmed Type carbidopa 25 mg-levodopa 100 mg 1 tab PO TID 04/01/21 06/10/25 History tablet losartan 50 mg tablet 25 mg PO QAM 04/01/21 06/10/25 History multivitamin 1 tab PO DAILY 04/01/21 06/10/25 History lorazepam 1 mg tablet 0.5 mg PO Q4H PRN Agitation/Sleep 06/10/25 06/10/25 History quetiapine 25 mg tablet See Rx Instructions .Route .COMPLEX 06/10/25 06/10/25 History trazodone 100 mg tablet 100 mg PO HS 06/10/25 06/10/25 History Hospital Stay Data Consultations 06/10/25 12:06 ED Decision to Admit Stat Diagnostic Imagining Performed Head CT 06/10/25 10:21 CT SCAN OF THE BRAIN WITHOUT IV CONTRAST CLINICAL HISTORY: Confusion. Fall. COMPARISON STUDY: Head CT December 04, 2024. TECHNIQUE: Unenhanced axial CT scan of the brain was performed from the vertex to the skull base. A dose lowering technique was utilized adhering to the principles of ALARA. CT DOSE: 2338.07 mGy.cm FINDINGS: Brain parenchyma: No acute intracranial hemorrhage, midline shift or mass effect is present. Quarles-white matter differentiation is preserved. There are no extra- axial fluid collections. There are no findings to suggest acute dural sinus thrombosis or acute territorial infarct. White matter hypodensities are unchanged and favor small vessel disease. Ventricles, sulci, cisterns: There is no hydrocephalus. The basal cisterns are patent. Calvarium: There are no calvarial fractures. Sinuses and mastoids: The visualized paranasal sinuses are clear. The mastoid air cells are well pneumatized. Orbits: The bony orbits are grossly intact. IMPRESSION: 1. No acute intracranial findings. No change in appearance of the brain. 2. No calvarial fractures. ACT 112: Negative or not required by law. Electronically signed by: Ryan Khan M.D. 06/10/2025 11:39 AM Chest X-Ray 06/10/25 12:42 XR chest 1V portable CLINICAL HISTORY: Cough COMPARISON STUDY: 12/05/2024 FINDINGS: Stable cardiomegaly without pulmonary vascular congestion. Evaluation of the left lung base is limited by the overlying cardiac silhouette. There is possible interval stranding at the left base. Otherwise the lungs remain aerated. IMPRESSION: Possible atelectasis versus early pneumonia left lung base. ACT 112: Negative or not required by law. Electronically signed by: Neftali Catalan M.D. 06/10/2025 1:37 PM Pending Results Patient Have Any Pending Studies at Discharge: Yes Discharge Instructions Given to Patient (Per Discharging Provider) You presented to the hospital because your caregivers were concerned that you were not acting yourself. Your labs and studies were not concerning for infection. You had an irregular heartbeat for which we started a new medication called metoprolol. You are also being treated for pink eye. You worked with physical and occupational therapy who felt that you would need to go to a snf facility. You are being transferred to [facility]. MEDICATION CHANGES: START metoprolol succinate 25mg by mouth twice daily START erythromycin ointment four times per day until 06/19/2025 START thiamine and folic acid STOP trazodone STOP lorazepam SUMMARY OF TEST RESULTS: Head CT normal PENDING TEST RESULTS: Blood culture - preliminary negative RECOMMENDATIONS FOR FOLLOW-UP: Please follow up with your PCP after being in the hospital OTHER INSTRUCTIONS: Seek medical attention if you have: * temperature above 101 * chest pain or trouble breathing * abdominal pain, nausea, vomiting * diarrhea, dark stools or bloody stools * any unanswered questions or concerns Call 911 if symptoms are severe. It has been a pleasure taking care of you. Please take care of yourself. If you have any questions regarding your recent hospitalization please contact [facility] and request Diane Blanchard @ [phone]. Total Time Total Time Spent Total Time Spent (In Minutes): I spent a total of 35 minutes coordinating, documenting and providing care for this patient excluding time spent in the performance of separately billed services or time spent by another provider/QHP. Supervising Physician Co-Signing Physician Notes Attending addendum: The patient was seen and examined in medical telemetry He has significant dementia and does not have any meaningful communication He remains stable without any apparent distress On examination Lying in bed without any apparent distress Afebrile and hemodynamically stable Chestclear to auscultation bilaterally heartS1-S2, regular Abdomenbenign Extremitiesno edema His admission labs, EKG and imaging studies reviewed Admitted with change in mental status and does not have any infection as of now Acute PE secondary to progressive dementia (misinterpreted by the dictation system.Please ignore 06/12/2025) Will get PT and OT evaluation and case management involvement for safe discharge plan Agree with assessment plan as outlined above by JAVID Peng and take the full responsibility of care in the hospital Dr Frederic Lizarraga 06/12/2025 Patient was seen and examined in medical telemetry unit He remains stable without any significant distress On examination Lying in bed without any apparent distress Remains hemodynamically stable and afebrile with unremarkable physical examination His labs and medications reviewed Presenting with acute change in mental status seems to be resolved Has significant dementia and is complicated by Parkinson disease Awaiting speech evaluation and placement following that Agree with assessment and plan as outlined above by Lourdes Kumar PA-C and take the full responsibility of care in the hospital Total time taken to document all of this was 10minutes DR Frederic Lizarraga 06/13/2025 The patient was seen and examined in medical telemetry unit He remains stable and without any distress at rest Noted to have 8 beats of V. tach last night without any symptoms On examination Lying in bed without any apparent distress Remains hemodynamically stable His labs, EKG and imaging studies reviewed His mental status seems to be at his baseline Significant dementia with Parkinson disease and almost bedbound and needs help with ADLs Agree with assessment plan as outlined above by Lourdes Kumar PA-C and take the full responsibility of care in the hospital Total time taken to document all of this was [address] Frederic Lizarraga 06/14/2025 The patient was seen and examined in medical telemetry unit He remains stable and no more episodes of V. tach/ectopics Does not have any acute distress and lying in bed comfortably Systemic examination remained unremarkable He is labs and medications reviewed Agree with assessment and plan as outlined above by JAVID Peng and take the full responsibility of care in the Total time taken in documenting all of this was [address] Frederic Lizarraga 06/15/2025 The patient was seen and examined in medical telemetry unit He remains pleasantly confused but not in any acute distress. Denies any significant symptoms On examination Lying in bed without any distress Remains hemodynamically stable Chest was clear to auscultation bilaterally HeartS1-S2 regular Abdomenbenign Extremitiesno edema, chronic skin changes His Labs and 1 medications reviewed Has severe dementia complicated by Parkinson's disease and history of oropharyngeal dysphagia She remains otherwise medically stable and will be transferred to skilled care facility this afternoon Agree with assessment and plan as outlined above by Ayaka HUA and take the full responsible care in the hospital Total time taken to see the patient, examining, reviewing the chart and medications was [address] Frederic Lizarraga
[2025-06-15] MEDS ORDERED: PHA DELIRIUM CONSULT PRN (12:15)
[2025-06-15 14:14] VITALS: BP 154/77; PULSE 74
== END 2025-06-15 15:25 | DRG 57 ==
LOC: ED 09:01 → EDINP 09:01 → SUATTDRO 12:11 → OBSVTOIN 14:43 → 2N 16:06